=== PATIENT | male | born 1935 | race Caucasian/White ===

== ENCOUNTER 2017-01-09 10:48 | Emergency (ER) | payer MEDICARE, OTHER ==
[~2017-01-09] VITALS: Ht 175.3 cm; Wt 78.2 kg
[~2017-01-09 10:48] MED LIST: ASPI-611 PO; METO25TA41 PO; TAMS0.4C46 PO; UBID10CA9 PO
[2017-01-09 10:50] VITALS: Ht 175.3 cm; Wt 78.2 kg
--- OUTSIDE RECORDS SUMMARY | 2017-01-09 10:53 | XMS REPORT | Referral Summary ---
Author Author [facility] Organization [facility] Address Unknown Phone Unavailable Care Team Providers Care Supervisor Network Control Operators Name Role Phone Simon Fritz Primary Care Physician [phone] Encounter VC Date(s): 05/26/16 - 05/26/16 [facility] [address] [place] [address] MISAEL Velasquez [id number] Discharge Diagnosis: Changing skin lesion Discharge Disposition: 01-Home or Self Care Attending Physician: Marcel Bell MD Admitting Physician: Marcel Bell MD Vital Signs Most recent to 1 oldest [Reference Range]: Temperature Tympanic 36.2 degC [36.6-38.1 degC] *LOW* (05/26/16 1:56 PM) Peripheral Pulse 80 bpm Rate [60-100 bpm] (05/26/16 1:56 PM) Blood Pressure 116/68 mmHg [90-140/60-90 mmHg] (05/26/16 1:56 PM) Problem List Condition Effective Dates Status Health Status Informant Atypical chest 2004 Active pain(Confirmed) Benign essential Active hypertension(Confirm ed) BPH (benign Active prostatic hypertrophy) - w/o obstruction(Confirme d) CAD (coronary artery Active disease)(Confirmed) Change in bowel 2003 Active habits(Confirmed) Chicken Active pox(Confirmed) Chronic ischemic Active heart disease(Confirmed) CVA (cerebral 10/08/10 - 08/19/14 Resolved vascular accident)(Confirmed) Disorder of bone and Active cartilage, unspecified(Confirme d) Disturbance of skin Active sensation(Confirmed) Enthesopathy of Active ankle and tarsus, unspecified(Confirme d) Fibromyalgia(Confirm < 08/19/14 Resolved ed) Generalized 2013 Active abdominal pain(Confirmed) Generalized Active osteoarthrosis, unspecified site(Confirmed) Hearing Active loss(Confirmed) Hernia, inguinal, 2006 Active right(Confirmed) Dyslipidemia(Confirm Active ed) Hyperlipidemia(Confi Active rmed) OA (osteoarthritis) Active - lower leg(Confirmed) Pneumonia(Confirmed) 1950 Active Pure Active hypercholesterolemia (Confirmed) Renal Active adenoma(Confirmed) Hx of heart artery Active stent(Confirmed) Allergies, Adverse Reactions, Alerts No Known Allergies Medications Aspir 81 81 mg, Oral, BID, 0 Refill(s) Start Date: 10/11/14 Status: Ordered Co Q-10 100 mg oral capsule 1 caps, Oral, Daily, 0 Refill(s) Start Date: 10/11/14 Status: Ordered Flomax 0.4 mg oral capsule 1 caps, Oral, Daily, # 30 caps, 0 Refill(s) Start Date: 10/11/14 Status: Ordered Metoprolol Tartrate 25 mg oral tablet See Instructions, TAKE ONE TABLET BY MOUTH ONCE DAILY, # 90 tabs, eRx: [id number], TAKE ONE TABLET BY MOUTH ONCE DAILY Start Date: 04/13/16 Status: Ordered Nitrostat 0.4 mg sublingual tablet 1 tabs, SubLingual, q5min, as needed for chest pain, # 100 tabs, 0 Refill(s), Pharmacy: [id number], 1 tabs SubLingual q5min,PRN:as needed for chest pain Start Date: 08/05/14 Status: Ordered nortriptyline 10 mg oral capsule 10 mg 1 caps, Oral, Daily, 0 Refill(s) Start Date: 05/18/16 Status: Ordered pravastatin 40 mg oral tablet 40 mg 1 tabs, Oral, Every other day, # 90 tabs, 3 Refill(s), Pharmacy: [id number], 1 tabs Oral Daily Start Date: 08/08/15 Status: Ordered Results No data available for this section Immunizations Vaccine Date Refusal Reason influenza virus vaccine, inactivated 08/01/15 influenza virus vaccine, inactivated 08/12/14 influenza virus vaccine, live 08/08/13 influenza virus vaccine, live 08/16/12 pneumococcal 13-valent conjugate vaccine 11/18/15 pneumococcal 23-polyvalent vaccine 10/24/02 tetanus-diphth toxoids (Td) adult/adol 01/27/06 tetanus-diphth toxoids (Td) adult/adol 05/11/96 zoster vaccine live 08/04/07 Procedures Procedure Date Related Diagnosis Body Site Colonoscopy - no need to repeat unless 2013 symptoms warrant Angioplasty - stent at circumflex marginal 2009 artery Repair of inguinal hernia - R 2005 Colonoscopy - normal; repeat 10 years 2003 Partial nephrectomy - R 2003 Angioplasty - no stent (PDA) 10/2000 Angioplasty - stent at LAD 1999 Cardiac catheterization - patent stent 1999 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 It begins in the basal cells, which are at the bottom of the outer skin layer (epidermis). CAUSES Sun exposure is the most common cause of basal cell carcinoma. Basal cell carcinoma occurs most often on parts of the body that are frequently exposed to the sun, including the: Scalp. Ears. Neck. Face. Arms. Backs of the hands. Legs. However, basal cell carcinoma can occur anywhere on the body. Rarely, tumors develop on areas not exposed to the sun. Other causes of basal cell carcinoma can include: Exposure to arsenic. Exposure to radiation. Certain genetic syndromes, such as xeroderma pigmentosum. RISK FACTORS People at highest risk for basal cell carcinoma include those with: Fair skin. Blonde or red hair. Blue, green, or dumont eyes. Childhood freckling. Factors that increase your risk for basal cell carcinoma include: Sun exposure over long periods of time. Childhood sun exposure appears to be a more significant factor than sun exposure as an adult. Repeated sunburns. Use of tanning beds. Having a weakened immune system. SYMPTOMS Five signs of basal cell carcinoma are: An open sore that bleeds, oozes, or crusts. The sore may remain open for 3 or more weeks. This can be an early sign of basal cell carcinoma. Basal cell carcinoma can mimic a pimple that will not heal. A reddish or irritated area which may crust, itch, or cause discomfort. This may occur on areas expose d to the sun. These patches might be easier felt than seen. A shiny, pearly, or translucent bump that is pink, red, or white. The bump may also be rodgers, black, or brown, especially in dark haired people. These bumps can be confused with moles. A pink growth with a slightly elevated, rolled border, and a crusted indentation in the center. As the growth slowly enlarges, tiny blood vessels may develop on the surface. A scar-like white, yellow, or waxy area that looks like shiny, stretched skin. It often has irregular borders. This may be a sign of more aggressive basal cell carcinoma. DIAGNOSIS Your caregiver may be able to tell what is wrong by doing a physical exam. Often , a tissue sample (biopsy) is also taken. The tissue is examined under a microscope. TREATMENT The treatment for basal cell carcinoma depends on the type, size, location, and number of tumors. Possible treatments include: Mohs surgery. This is a procedure done by a skin doctor (community service aide or Mohs surgeon) in his or her office. The cancerous cells are removed layer by layer. This treatment has a high cure rate. Surgical removal of the tumor. Freezing the tumor with liquid nitrogen (cryosurgery). Plastic surgery to remove the tumor, in the case of large tumors. Radiation. This may be used for tumors on the face. Photodynamic therapy. A chemical cream is applied to the skin and light exposure is used to activate the chemical. Chemical treatments, such as imiquimod cream and interferon injections. This may be used to remove superficial tumors with minimal scarring. Electrodesiccation and curettage. This involves alternately scraping and burning the tumor, using an electric current to control bleeding. Basal cell carcinoma can almost always be cured. It rarely spreads to other areas of the body (metastasizes). Basal cell carcinoma may come back at the same location (recur), but it can be treated again if this occurs. PREVENTION Avoid the sun between 10:00 a.m. and 4:00 pm when it is the strongest. Use a sunscreen or sunblock with a sun protection factor of 30 or greater. Apply sunscreen at least 30 minutes before exposure to the sun. Reapply sunscreen every 2 to 4 hours while you are outside, after swimming, and after excessive sweating. Always wear protective hats, clothing, and sunglasses with ultraviolet protection. Avoid tanning beds. HOME CARE INSTRUCTIONS Avoid unprotected sun exposure. Follow your caregiver's instructions for self-exams. Look for new spots or changes in your skin. Keep all follow-up appointments as directed by your caregiver. SEEK MEDICAL CARE IF: You notice any new spots or changes in your skin. You have had a basal cell carcinoma tumor removed and you notice a new growth in the same location. This information is not intended to replace advice given to you by your health care provider. Make sure you discuss any questions you have with your health care provider. Document Released: 04/15/2004 Document Revised: 04/10/2013 Document Reviewed: [facility] Information 2016 [employer] [facility]. No follow up information was provided. Extracted from: Title: Office Visit Note Author: Marcel Bell MD Date: 05/26/16 Assessment/Plan 1.Changing skin lesion Ordered: Office Visit Level 3 New [id number] Plan: Excisional biopsy ofUlceratedskinlesion under right ear lobe 0.8 cm in diameter I did review the patient's chart including office note performed by his PCP from May 18, 2016.I informed the patient that it was my clinical intuition that this ulcerated lesionjust beneath the right ear was likely the result of underlying skin malignancy.It was therefore my recommendation that we should proceed with an excisional biopsy.Patient understood and wished to proceed. The area of concern was prepped and draped in sterile fashion. One percent lidocaine with epinephrine was injected circumferentially around the skin lesion. The lesion was excised in a standard elliptical fashion. The elliptical incision was 1.0 cm in width and 1.8 cm in length. Hemostasis obtained withRECTAL cautery. The incision was closed in layers with 4-0 Vicryl subcuticular stitches and 4-0 Prolene for skin edges. The patient was given post excision instruction and told to return to the clinic May 15, or sooner if any concerns arise.
--- OUTSIDE RECORDS SUMMARY | 2017-01-09 10:53 | XMS REPORT | Continuity of Care Document ---
Author Author Danny MG, Etienne GLASGOW [facility] Ambulatory Address [address] [place] [address] Phone Care Team Providers Care Polymer Scientist Name Role Phone Etienne Delgado PP Unavailable Payers Payer name Insurance type Covered republican ID Authorization(s) Unknown Problems Condition Effective Dates (start - stop) Clinical Status Headache - *Acute Ptosis, right eyelid - *Acute Chronic ischemic heart disease, unspecified - *Chronic Hypercholesterolemia - *Chronic Hypertension, Benign - *Chronic Myalgia and myositis, unspecified - *Chronic Ganglion cyst of wrist - *Chronic Headache - *Acute Chronic ischemic heart disease, unspecified - *Chronic Hypercholesterolemia - *Chronic BPH - *Chronic Abdominal Pain - *Acute Chronic ischemic heart disease, unspecified - *Chronic Abdominal pain, other specified site - *Chronic 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 Chronic ischemic heart disease, unspecified - *Chronic 3Rd nerve palsy, partial - *Acute Headache - *Acute Other bursal cyst, right wrist - *Chronic Primary osteoarthritis of right wrist - *Chronic Abdominal Pain - *Chronic Chronic ischemic heart disease, unspecified - *Chronic BPH - *Chronic Abdominal Pain - *Chronic BPH - *Chronic Chronic ischemic heart disease, unspecified - *Chronic Hypercholesterolemia - *Chronic Hypertension, Unspecified - *Chronic Impacted cerumen - *Acute Third or oculomotor nerve palsy, partial - *Acute Rhus dermatitis - *Chronic Chest pain - *Chronic CAD (coronary artery disease) - *Chronic BPH with urinary obstruction - *Chronic Urinary obstruction, not elsewhere classified - *Chronic Abdominal pain, generalized - *Chronic Abdominal Pain - Episodic Chronic ischemic heart disease, unspecified - *Chronic Hypercholesterolemia - *Chronic Headache - Episodic BENIGN LOCALIZED HYPERPLASIA OF PROSTATE WITH URINARY OBSTRUCTION - *Controlled Abdominal pain, left lower quadrant - Intermittent VARICELLA UNCOMPLICATED - PURE HYPERCHOLESTEROLEM - MIXED HYPERLIPIDEMIA - HYPERLIPIDEMIA NEC/NOS - SENSORNEUR HEAR LOSS NOS - SENSONRL HEAR LOSS,BILAT - BENIGN HYPERTENSION - COR ATH UNSP VSL NTV/GFT - CHR ISCHEMIC HRT DIS NOS - CRBL ART OCL NOS W INFRC - BPH W/O URINARY OBS/LUTS - GENERAL OSTEOARTHROSIS - OSTEOARTHROS NOS-L/LEG - ANKLE ENTHESOPATHY NOS - MYALGIA AND MYOSITIS NOS - BONE & CARTILAGE DIS NOS - SKIN SENSATION DISTURB - Hypertension, Unspecified - *Chronic Other and unspecified hyperlipidemia - *Chronic Second degree burn - *Acute HYPERTROPHY (BENIGN) OF PROSTATE WITH URINARY OBSTRUCTION - * Fair Control Family History Family Member Diagnosis Age At Onset Status Father (Unknown) CVA (Stroke) Yes Mother (Unknown) Myocardial infarction Yes 3 sisters (Unknown) Alive and well (Unknown) Father (Unknown) Myocardial infarction Yes Social History Social History Element Description Quantity Unknown Allergies, Adverse Reactions, Alerts Substance Reaction Severity Status Unknown Medications Medication Instructions Dosage Effective Dates (start - stop) Status aspirin 81 mg tablet,delayed release take 1 tablet (81MG) by oral route every day 81 MG - Active Flomax 0.4 mg capsule take 1 capsule (0.4MG) by oral route every day 0.4 MG - Active COQ-10 (unknown strength) Take daily - Active metoprolol tartrate 25 mg tablet one po daily - Active simvastatin 20 mg tablet take 1 tablet (20MG) by oral route every day in the evening 20 MG - Active nitroglycerin 0.4 mg sublingual tablet ONE TABLET UNDER TONGUE NEEDED FOR CHEST PAIN. MAY REPEAT UP TO TWO MORE TIMES, 5 MINUTES APART EACH TIME. - Active ibuprofen 200 mg tablet take 2 Tablet (400MG) by oral route 5-6 times every day as needed with food - Active [place] 7.5 mg-325 mg tablet take 1 tablet by oral route every 4 hours as needed for pain 0 - Active Immunizations Vaccine Date Status Comments Flu (split) (3 yrs or older) completed Flu (split) (3 yrs or older) completed Td (adult) completed - Completed reason: source unspecified Td (adult) completed - Completed reason: source unspecified pneumo (2 yrs or older) (PPV23) completed - Completed reason: source unspecified Zoster completed - Completed reason: source unspecified Results Test Name Date and Time Measure Units Reference Range Abnormal Flag Comments Panel Description: CBC WBC 16:51:00 6.4 K/uL 4.8-10.8 RBC 16:51:00 4.86 M/uL 4.60-6.20 HGB 16:51:00 15.1 g/dl 14.0-18.0 HCT 16:51:00 43.2 % 42.0-52.0 MCV 16:51:00 88.9 fL 82.0-99.0 MCH 16:51:00 31.1 pg 27.0-32.0 MCHC 16:51:00 35.0 g/dL 32.0-36.0 RDW 16:51:00 12.7 % 11.5-14.5 MPV 16:51:00 10.5 fL 8.8-14.8 Platelet Count 16:51:00 169 K/uL 150-400 Immature Granulocytes 16:51:00 0.5 % 0.0-1.0 Absolute Neutrophils 16:51:00 3.97 THOUS 1.90-7.00 Absolute Lymphocytes 16:51:00 1.60 THOUS 0.80-3.30 Absolute Monocytes 16:51:00 0.59 THOUS 0.30-1.00 Absolute Eosinophils 16:51:00 0.18 THOUS 0.00-0.50 Absolute Basophils 16:51:00 0.03 THOUS 0.00-0.20 Neutrophils 16:51:00 62 % 51-75 Lymphocytes 16:51:00 25 % 20-46 Monocytes 16:51:00 9 % 4-11 Eosinophils 16:51:00 3 % 0-4 Basophils 16:51:00 1 % 0-2 Testing performed at [facility] [address] [place] [address] [employer] Secretary Missael Henderson MD Panel Description: Sedrate Sedimentation Rate 16:51:00 2 mm/hr 0-15 Testing performed at [facility] [address] [place] [address] [employer] Secretary Missael Henderson MD Panel Description: C-Reactive [id number] C-Reactive Protein 16:51:00 <0.5 mg/dL <0.5 Testing performed at [facility] [address] [place] [address] [employer] Secretary Missael Henderson MD Vital Signs Date / Time: Height Weight Pulse Rate Blood Pressure Temperature /15:58:00 69.00 in 171.00 lbs 48 /min 124/70 mm[Hg] 98.3 F Procedures Procedure Date Unknown Encounters Encounter Location Date Patient Visit [facility] Patient [facility] Patient [facility] Patient Visit [facility] Patient Visit [facility] Patient Visit [facility] Patient Visit [facility] Patient Visit [facility] Patient Visit [facility] Patient Visit [facility] Patient Visit [facility] Advance Directives Directive Effective Date Unknown
--- OUTSIDE RECORDS SUMMARY | 2017-01-09 10:53 | XMS REPORT | Continuity of Care Document ---
Author Author Emilia Clemente [facility] Ambulatory Address Unknown Phone Unavailable Care Team Providers Care Grinder Operator Tool Name Role Phone Liz Delgadoargenis AGUILERA Unavailable Payers Payer name Insurance type Covered alliance party ID Authorization(s) Unknown Problems Condition Effective Dates (start - stop) Clinical Status Chronic ischemic heart disease, unspecified - *Controlled Chest Pain, Unspecified - *Chronic Hypertension, Unspecified - *Chronic Hypercholesterolemia - *Chronic Cranial nerve III palsy, partial - *Routine Ocular pain - *Fair Control Chronic ischemic heart disease, unspecified - *Chronic Hypercholesterolemia - *Chronic Hypertension, Benign - *Chronic Myalgia and myositis, unspecified - *Chronic Ganglion cyst of wrist - *Chronic Headache - *Acute Ptosis, right eyelid - *Acute Hypercholesterolemia - *Chronic BPH - *Chronic Abdominal [...] DIS NOS - SKIN SENSATION DISTURB - Headache - *Acute Chronic ischemic heart disease, unspecified - *Chronic Hypertension, Unspecified - *Chronic Other and unspecified [...] Dosage Effective Dates (start - stop) Status oxcarbazepine 300 mg tablet take 1 tablet (300MG) by oral route 2 times every day 300 MG - Active aspirin 81 mg tablet,delayed release take 1 tablet (81MG) by oral route every day 81 MG - Active Flomax 0.4 mg capsule take 1 capsule (0.4MG) by oral route every day 0.4 MG - Active COQ-10 (unknown strength) Take daily - Active simvastatin 20 mg tablet take 1 tablet (20MG) by oral route every day in the evening 20 MG - Active nitroglycerin 0.4 mg sublingual tablet ONE TABLET UNDER TONGUE NEEDED FOR CHEST PAIN. MAY REPEAT UP TO TWO MORE TIMES, 5 MINUTES APART EACH TIME. - Active metoprolol tartrate 25 mg tablet one po daily - Active Immunizations Vaccine Date Status Comments Flu (split) (3 yrs or older) completed Flu (split) (3 yrs or older) completed Td (adult) completed - Completed reason: source unspecified Td (adult) completed - Completed reason: source unspecified Zoster completed - Completed reason: source unspecified pneumo (2 yrs or older) (PPV23) completed - Completed reason: source unspecified Results Test Name Date and Time Measure Units Reference Range Abnormal Flag Comments Unknown Vital Signs Date / Time: Height Weight Pulse Rate Blood Pressure Temperature /:17:00 69.00 in 171.00 lbs 52 /min 122/80 mm[Hg] /:19:00 114/80 mm[Hg] Procedures Procedure Date Unknown Encounters Encounter Location Date Patient Visit [facility] Patient Visit [facility] [place] Patient Visit [facility] Patient Visit [facility] Patient Visit [facility] Patient Visit [facility] Patient [facility] Patient [facility] Patient Visit [facility] Patient Visit [...]
--- OUTSIDE RECORDS SUMMARY | 2017-01-09 10:53 | XMS REPORT | Referral Summary ---
Author Author [facility] Organization [facility] Address Unknown Phone Unavailable Care Team Providers Care Data Collection Technician Name Role Phone Simon Fritz Primary Care Physician [phone] Encounter Date(s): 11/18/15 - 11/18/15 [facility] [address] [place] [id number] Discharge Diagnosis: CAD (coronary artery disease) Discharge Diagnosis: Benign essential hypertension Discharge Diagnosis: Mild anxiety Discharge Diagnosis: Atypical chest pain Discharge Diagnosis: Dyslipidemia Discharge Diagnosis: Myalgia Discharge Disposition: 01-Home or Self Care Attending Physician: Juan Fritz MD Admitting Physician: Juan Fritz MD Vital Signs Most recent to 1 oldest [Reference Range]: Temperature Tympanic 35.7 degC [36.6-38.1 degC] *LOW* (11/18/15 9:36 AM) Peripheral Pulse 84 bpm Rate [60-100 bpm] (11/18/15 9:36 AM) Blood Pressure 115/62 mmHg [90-140/60-90 mmHg] (11/18/15 9:36 AM) Problem List Condition Effective Dates Status Health [...] d) Fibromyalgia(Confirm < 08/19/14 Resolved ed) Generalized 2012 Active abdominal pain(Confirmed) Generalized Active osteoarthrosis, unspecified site(Confirmed) Hearing Active loss(Confirmed) Hernia, inguinal, 2006 Active right(Confirmed) Dyslipidemia(Confirm Active ed) Hyperlipidemia(Confi Active rmed) OA (osteoarthritis) Active - lower leg(Confirmed) Pneumonia(Confirmed) 1950 Active Pure Active hypercholesterolemia (Confirmed) Renal Active adenoma(Confirmed) Hx of heart artery Active stent(Confirmed) Allergies, Adverse Reactions, Alerts No Known Allergies Medications Aspir 81 81 mg, Oral, Daily, 0 Refill(s) Start Date: 10/11/14 Status: Ordered Co Q-10 100 mg oral capsule 1 caps, Oral, Daily, 0 Refill(s) Start Date: 10/11/14 Status: Ordered Flomax 0.4 mg oral capsule 1 caps, Oral, Daily, # 30 caps, 0 Refill(s) Start Date: 10/11/14 Status: Ordered Metoprolol Tartrate 25 mg oral tablet See Instructions, TAKE ONE TABLET BY MOUTH ONCE DAILY, # 90 tabs, 3 Refill(s), [facility]Rx: 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 We talked about plaque development on the arteries, the concept of endothelial dysfunction, and the function of statin medications. We talked about statin complications including myalgias. We will check a CPK level and recheck a lipid panel-to be done fasting another day sometime soon. We discussed hypertension and at this point it seems to be adequately controlled. We discussed his chest discomfort which is quite atypical and does not seem to be cardiac in nature. Most likely there is a musculoskeletal component. We talked about his headaches which at this point seem to be mild with no clues to suggest intracranial tumor, bleed, etc. I suggested Tylenol and observation with follow-up if they're progressing. We will update Prevnar vaccine today. We discussed anxiety and I do think he has a component of anxiety. After discussion we decided to observe rather than start on medication. Follow-up 6 months if all goes well or sooner if needed.
--- OUTSIDE RECORDS SUMMARY | 2017-01-09 10:53 | XMS REPORT | Referral Summary ---
Author Author [facility] Organization [facility] Address Unknown Phone Unavailable Care Team Providers Care Vegetable Thinner Name Role Phone Macie Delgado Primary Care Physician [phone] Encounter Date(s): 07/30/15 - 07/30/15 [facility] [address] [place] [address] [place] [id number] Discharge Diagnosis: Statin intolerance Discharge Diagnosis: Leg pain Discharge Diagnosis: History of percutaneous coronary intervention Discharge Diagnosis: Coronary heart disease Discharge Disposition: 01-Home or Self Care Attending Physician: Santiago Bernal MD Admitting Physician: Santiago Bernal MD Referring Physician: Etienne Delgado MD Vital Signs Most recent to 1 oldest [Reference Range]: Peripheral Pulse 56 bpm Rate [60-100 bpm] *LOW* (07/30/15 2:24 PM) Blood Pressure 104/74 mmHg [90-140/60-90 mmHg] (07/30/15 2:24 PM) Problem List Condition Effective Dates Status Health Status Informant Atypical chest 2004 Active pain(Confirmed) Benign essential Active hypertension(Confirm ed) BPH (benign Active prostatic hypertrophy) - w/o obstruction(Confirme d) CAD (coronary artery Active disease)(Confirmed) Change in bowel 2003 Active habits(Confirmed) Chicken Active pox(Confirmed) Chronic ischemic Active heart disease(Confirmed) CVA (cerebral 10/08/10 Active vascular accident)(Confirmed) Disorder of bone and Active cartilage, unspecified(Confirme d) Disturbance of skin Active sensation(Confirmed) Dyslipidemia(Confirm Active ed) Enthesopathy of Active ankle and tarsus, unspecified(Confirme d) Fibromyalgia(Confirm Active ed) Generalized 2013 Active abdominal pain(Confirmed) Generalized Active osteoarthrosis, unspecified site(Confirmed) Hearing Active loss(Confirmed) Hernia, inguinal, 2006 Active right(Confirmed) Hyperlipidemia(Confi Active rmed) OA (osteoarthritis) Active - lower leg(Confirmed) Pneumonia(Confirmed) 1949 Active Pure Active hypercholesterolemia (Confirmed) Renal Active [...] DAILY, # 90 tabs, 3 Refill(s), [facility]Rx: [id number], TAKE ONE TABLET BY MOUTH ONCE DAILY Start Date: 01/23/15 Status: Ordered Nitrostat 0.4 mg sublingual tablet 1 tabs, SubLingual, q5min, as needed for chest pain, # 100 tabs, 0 Refill(s), Pharmacy: [id number], 1 tabs SubLingual q5min,PRN:as needed for chest pain Start Date: 08/05/14 Status: Ordered pravastatin 40 mg oral tablet 40 mg 1 tabs, Oral, Daily, # 90 tabs, 3 Refill(s), Pharmacy: [id number], 1 tabs Oral Daily Start Date: 08/08/15 Status: Ordered Results No data available for this section Immunizations Vaccine Date Refusal Reason influenza virus vaccine, inactivated 08/01/15 influenza virus vaccine, inactivated 08/12/14 influenza virus vaccine, live 08/08/13 influenza virus vaccine, live 08/16/12 pneumococcal 23-polyvalent vaccine 10/24/02 tetanus-diphth toxoids (Td) adult/adol 01/27/06 tetanus-diphth toxoids (Td) adult/adol 05/11/96 zoster vaccine live 08/04/07 Procedures Procedure Date Related Diagnosis Body Site Colonoscopy - no need to repeat unless 2013 symptoms warrant Angioplasty - stent at circumflex marginal 2009 artery Repair of inguinal hernia - R 2005 Colonoscopy - normal; repeat 10 years 2003 Partial nephrectomy - R 2004 Angioplasty - no stent (PDA) 10/2000 Angioplasty - stent at LAD 1999 Cardiac catheterization - patent stent 2000 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 We reassured him, however, that the medicine doesn't seem to be resulting in muscle injury. Wediscussedalternative medicationsand we discussed taking the medicineon an alternate day basis. Heconfessed that he has been taking the medicine 4 days a week and has been actually getting along very well. We discussedoptions includingchanging to pravastatinor atorvastatinor Crestor. We discussed current guidelines. He reports that he is going to check his insurance plans and make a final decision about his preference. Time of visit about 25 minutes.
--- OUTSIDE RECORDS SUMMARY | 2017-01-09 10:54 | XMS REPORT | Summary of Care ---
Author Author Kosta Armstrong M.D. Unknown Address [address] [place] [address] [place] [address] Phone Unavailable Care Team Providers Care Clinical Lab Assistant Name Role Phone Juan Fritz PP Unavailable Unavailable Unavailable Functional Status Functional Status Health Issues* Name Dates Details Functional status health issues are not documented Status: Cognitive Status Health Issues* Name Dates Details Cognitive status health issues are not documented Status: Problems Name Dates Details Erectile dysfunction (607.84, N52.9) Status: Active Testalgia (608.9, N50.8) Status: Active Abdominal pain of multiple sites (789.09, R10.9) Status: Active Rising PSA level (790.93, R97.2) Status: Active Enlarged prostate with lower urinary tract symptoms (LUTS) (600.01, N40.1) Status: Active Medications Name Dates Details Tamsulosin HCl 0.4 MG CP24 ActiveCo Q10 CAPS * Refills: 0 ActiveAspirin EC 81 MG Oral Tablet Delayed Release * Refills: 0 ActiveSimvastatin 20 MG Oral Tablet * Refills: 0 ActiveMetoprolol Tartrate 25 MG Oral Tablet * Refills: 0 Active Allergies and Adverse Reactions Name Dates Details No Known Allergies Status: Active Past Medical History Name Dates Details History of Benign prostatic hypertrophy with urinary obstruction (600.01, N40.1 ) Status: Resolved History of diabetes mellitus (V12.29, Z86.39) Status: Resolved History of hypertension (V12.59, Z86.79) Status: Resolved History of myocardial infarction (412, I25.2) Status: Resolved Procedures Procedure Dates Details History of Previous Stent Placement History of Hernia Repair History of Nephrectomy History of Colonoscopy PSA ( PROSTATE SPECIFIC ANTIGEN) 3100 Ordered:12-Nov-2015 Immunization Name Dates Details Immunizations not documented Family History Mother* Name Dates Details Family history of cardiac disorder (V17.49, Z82.49) Status: Active Father* Name Dates Details Family history of cardiac disorder (V17.49, Z82.49) Status: Active Social History Name Dates Details Smoking Status* Never smoker Vital Signs Date Test Result Details 12-Nov-2015 15:37 BP Systolic 138 mm[Hg] Status: BP Diastolic 75 mm[Hg] Status: Heart Rate 64 /min Status: Height 68 in Status: Weight 165 lb Status: Body Mass Index Calculated 25.09 kg/m2 Status: Body Surface Area Calculated 1.88 m2 Status: Results Date Description Value Details Results not documented Plan of Care Planned Observations* Name Dates Details Planned Goals not documented Goal Planned Encounters* Appointment; Provider: Kosta Armstrong On 10-Nov-2016 14:15 Instructions * Instructions not documented Encounters Appointment; Kosta Armstrong Encounter Diagnosis: Problem not documented On 12-Nov-2015 15:15
--- OUTSIDE RECORDS SUMMARY | 2017-01-09 10:54 | XMS REPORT | Summary of Care ---
Author Author Kosta Armstrong M.D. Unknown Address [address] [place] [address] [place] [address] Phone Unavailable Care Team Providers Care Board Operator Name Role Phone Juan Fritz PP Unavailable [...]
--- OUTSIDE RECORDS SUMMARY | 2017-01-09 10:54 | XMS REPORT | Referral Summary ---
Author Author [facility] Organization [facility] Address Unknown Phone Unavailable Care Team Providers Care Lithograph Press Operator Tinware Name Role Phone Simon Fritz Primary Care Physician [phone] Encounter VC Date(s): 08/01/15 - 08/01/15 [facility] [address] [place] [id number] Discharge Disposition: 01-Home or Self Care Attending Physician: Juan Fritz MD Admitting Physician: Etienne Delgado MD Vital Signs No data available for this section Problem List Condition Effective Dates Status Health [...] MOUTH ONCE DAILY, # 90 tabs, eRx: [facility], TAKE ONE TABLET BY MOUTH ONCE DAILY Start Date: 01/19/16 Status: Ordered Nitrostat 0.4 mg sublingual tablet 1 tabs, SubLingual, q5min, as needed for chest pain, # 100 tabs, 0 Refill(s), Pharmacy: [facility], 1 tabs SubLingual q5min,PRN:as needed for chest pain Start Date: 08/05/14 Status: Ordered pravastatin 40 mg oral tablet 40 mg 1 tabs, Oral, Every other day, # 90 tabs, 3 Refill(s), Pharmacy: [facility], 1 tabs Oral [...] 2005 Colonoscopy - normal; repeat 10 years 2004 Partial nephrectomy - R 2004 Angioplasty - [...] Smoking Status Never smoker Assessment and Plan No data available for this section
--- OUTSIDE RECORDS SUMMARY | 2017-01-09 10:54 | XMS REPORT | Referral Summary ---
Author Author [facility] Organization [facility] Address Unknown Phone Unavailable Care Team Providers Care Photographic Restorer Name Role Phone Simon Fritz Primary Care Physician [phone] Encounter VC Date(s): 10/21/16 - 10/21/16 [facility] [address] [place] [address] Discharge Diagnosis: Acute URI Discharge Disposition: 01-Home or Self Care Attending Physician: Oliver Carbajal PA-C Admitting Physician: Oliver Carbajal PA-C Vital Signs Most recent to 1 oldest [Reference Range]: Temperature Tympanic 36.3 degC [36.6-38.1 degC] *LOW* (10/21/16 1:14 PM) Peripheral Pulse 83 bpm Rate [60-100 bpm] (10/21/16 1:14 PM) Blood Pressure 122/72 mmHg [90-140/60-90 mmHg] (10/21/16 1:14 PM) SpO2 96 % (10/21/16 1:14 PM) Problem List Condition Effective Dates Status [...] ONE TABLET BY MOUTH ONCE DAILY, # 30 tabs, 3 Refill(s), eRx: [facility], TAKE ONE TABLET BY MOUTH ONCE DAILY Start Date: 08/16/16 Status: Ordered Nitrostat 0.4 mg sublingual tablet See Instructions, DISSOLVE ONE TABLET UNDER THE TONGUE EVERY 5 MINUTES NEEDED FOR CHEST PAIN. DO NOT EXCEED A TOTAL OF 3 DOSES IN 15 MINUTES, # 100 unknown unit, eRx: [facility], DISSOLVE ONE TABLET UNDER THE TONGUE EVERY 5 MINUTES ... Start Date: 08/20/16 Status: Ordered nortriptyline 10 mg oral capsule 10 mg 1 caps, Oral, Daily, 0 Refill(s) Start Date: 05/18/16 Status: Ordered pravastatin 40 mg oral tablet 40 mg 1 tabs, Oral, Daily, # 90 tabs, 3 Refill(s), Pharmacy: [facility], 1 tabs Oral Daily Start Date: 08/08/15 Status: Ordered Tessalon Perles 100 mg oral capsule 100 mg 1 caps, Oral, TID, as needed for cough, X 10 days, # 30 caps, 0 Refill(s) , Pharmacy: [facility], 1 caps Oral TID,x10 days,PRN:as needed for cough Start Date: 10/21/16 Stop Date: 10/31/16 Status: Ordered Results No data available for this section Immunizations Given and Recorded Vaccine Date Status Refusal Reason influenza virus vaccine, inactivated 08/04/16 Given influenza virus vaccine, inactivated 08/01/15 Given influenza virus vaccine, inactivated 08/12/14 Recorded influenza virus vaccine, live 08/08/13 Given influenza virus vaccine, live 08/16/12 Given pneumococcal 13-valent conjugate vaccine 11/18/15 Given pneumococcal 23-polyvalent vaccine 10/24/02 Recorded tetanus-diphth toxoids (Td) adult/adol 01/27/06 Given tetanus-diphth toxoids (Td) adult/adol 05/11/96 Given zoster vaccine live 08/04/07 Given Procedures Procedure Date Related Diagnosis Body Site Colonoscopy 09/13/13 Colonoscopy - no need to repeat unless 2013 symptoms warrant Angioplasty - stent at circumflex marginal 2008 artery Repair of inguinal hernia - R 2005 Colonoscopy - normal; repeat 10 years 2003 Partial nephrectomy - R 2003 Angioplasty - no stent (PDA) 10/2000 Angioplasty - stent at LAD 1999 Cardiac catheterization - patent stent 1999 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 Recommend supportive care. Rest. Practice good hand hygiene. Increase fluids. Patient was given a handout of [id number] medications that were recommended for the patient;recommended Mucinex DM. Tylenolas needed for fever or pain. FU with PCP if not improving, worsening symptoms, feveror as needed. Questions were answered. Patient verbalized understanding. Patient left in stable condition.
--- OUTSIDE RECORDS SUMMARY | 2017-01-09 10:54 | XMS REPORT | Referral Summary ---
Author Author [facility] Organization [facility] Address Unknown Phone Unavailable Care Team Providers Care Principal Gifts Officer Name Role Phone Macie Delgado Primary Care Physician [phone] Encounter Date(s): 07/30/15 - 07/30/15 [facility] [address] [place] [address] [place] [id number] Discharge Diagnosis: Statin intolerance Discharge [...] DAILY, # 90 tabs, 3 Refill(s), eRx: [facility], TAKE ONE TABLET BY MOUTH ONCE DAILY Start Date: 01/23/15 Status: Ordered Nitrostat 0.4 mg sublingual tablet 1 tabs, SubLingual, q5min, as needed for chest pain, # 100 tabs, 0 Refill(s), Pharmacy: [facility], 1 tabs SubLingual q5min,PRN:as needed for chest pain Start Date: 08/05/14 Status: Ordered pravastatin 40 mg oral tablet 40 mg 1 tabs, Oral, Daily, # 90 tabs, 3 Refill(s), Pharmacy: [facility], 1 tabs Oral Daily [...]
--- OUTSIDE RECORDS SUMMARY | 2017-01-09 10:54 | XMS REPORT | Summary of Care ---
Author Author Kosta Armstrong M.D. [facility] Unknown Address [address] [place] [address] [place] [address] Phone Unavailable Care Team Providers Care Parachute Mender Name Role Phone Juan Fritz PP Unavailable [...] Repair History of Nephrectomy History of Colonoscopy Procedures not documented Immunization Name Dates Details Immunizations not documented [...] m2 Status: Results Date Description Value Details 13-Nov-2015 08:50 PSA ( PROSTATE SPECIFIC ANTIGEN) 3100 PROSTATE SPECIFIC ANTIGEN 1.220 ng/mL (Better) Range: 0.000-4.000 Plan of Care Planned Observations* Name Dates Details Planned Goals not documented Goal Planned Encounters* Appointment; Provider: Kosta Armstrong On 10-Nov-2016 14:15 Instructions * Instructions not documented Encounters Appointment; Kosta Armstrong Encounter Diagnosis: Problem not documented On 12-Nov-2015 15:15
--- OUTSIDE RECORDS SUMMARY | 2017-01-09 10:54 | XMS REPORT | Referral Summary ---
Author Organization Unknown Address Unknown Phone Unavailable Care Team Providers Care Tele Tech Name Role Phone DelgadoMacie Primary Care Physician [phone] Encounter [facility] [id number] Date(s): 01/01/15 - 01/01/15 [facility] [place] [address] [place], [place] [address] Discharge Disposition: Home or Self Care Attending Physician: Maricruz Carlisle MD Admitting Physician: Maricruz Carlisle MD Vital Signs No data available for [...] tarsus, unspecified(Confirme d) Fibromyalgia(Confirm Active ed) Generalized 2012 Active abdominal pain(Confirmed) Generalized [...] 0 Refill(s) Start Date: 10/11/14 Status: Ordered metoprolol tartrate 25 mg oral tablet 1 tabs, Oral, Daily, # 60 tabs, 0 Refill(s) Start Date: 10/11/14 Status: Ordered Nitrostat 0.4 mg sublingual tablet 1 tabs, SubLingual, q5min, as needed for chest pain, # 100 tabs, 0 Refill(s), Pharmacy: [id number], 1 tabs SubLingual q5min,PRN:as needed for chest pain Start Date: 08/05/14 Status: Ordered simvastatin 20 mg oral tablet 1 tabs, Oral, Bedtime (once a day), # 90 tabs, 3 Refill(s), Pharmacy: [id number], 1 tabs Oral Bedtime (once a day) Start Date: 09/23/14 Status: Ordered Results No data available for this section Immunizations Vaccine Date Refusal Reason influenza virus vaccine, inactivated 08/12/14 influenza virus [...]
--- OUTSIDE RECORDS SUMMARY | 2017-01-09 10:54 | XMS REPORT | Referral Summary ---
Author Author [facility] Organization [facility] Address Unknown Phone Unavailable Care Team Providers Care Cutter Operator Tile Name Role Phone Simon Fritz Primary Care Physician [phone] Encounter Date(s): 02/04/16 - 02/04/16 [facility] [address] [place] [address] MISAEL Velasquez [id number] Discharge Diagnosis: Coronary heart disease Discharge Diagnosis: Essential hypertension Discharge Diagnosis: History of percutaneous coronary intervention Discharge Diagnosis: Hypercholesteremia Discharge Diagnosis: Myalgia Discharge Diagnosis: Paresthesias Discharge Disposition: 01-Home or Self Care Attending Physician: Santiago Bernal MD Admitting Physician: Santiago Bernal MD Referring Physician: Juan Fritz MD Vital Signs Most recent to 1 oldest [Reference Range]: Peripheral Pulse 52 bpm Rate [60-100 bpm] *LOW* (02/04/16 9:57 AM) Blood Pressure 100/64 mmHg [90-140/60-90 mmHg] (02/04/16 9:57 AM) Problem List Condition Effective Dates Status Health Status Informant Atypical chest 2003 Active pain(Confirmed) Benign essential Active hypertension(Confirm ed) [...] MOUTH ONCE DAILY, # 90 tabs, eRx: [facility], TAKE ONE TABLET BY MOUTH ONCE DAILY Start Date: 01/19/16 Status: Ordered Nitrostat 0.4 mg sublingual tablet 1 tabs, SubLingual, q5min, as needed for chest pain, # 100 tabs, 0 Refill(s), Pharmacy: [facility], 1 tabs SubLingual q5min,PRN:as needed for chest pain Start Date: 08/05/14 Status: Ordered pravastatin 40 mg oral tablet 40 mg 1 tabs, Oral, Every other day, # 90 tabs, 3 Refill(s), Pharmacy: [facility], 1 tabs Oral Daily [...] Visit Note Author: Santiago Bernal MD Date: 02/04/16 Assessment/Plan 1.Coronary heart disease 2.History of percutaneous coronary intervention 3.Hypercholesteremia 4.Myalgia 5.Essential hypertension 6.Paresthesias Discussion:I advised him that his heart seems to be doing okayand that his heart is not likely to have any relationship to hisneurologic symptoms. I pointed out that he has had long-standingatypical cardiacsymptoms and it 's not surprising that he might have atypical neurologic symptoms as well. I advised him to continue his same medications. He is feeling somewhat more secureregarding hischolesterol therapyandI encouraged him to try to increase the dose as he can tolerated. He is to see me again in 6 months or any time as necessary. I reassured him that his headache is notrelated to his heart andthat it probably is not likely to be dangerous. He apparently did have a sedimentation rate done which was okay. Lengthyvisit in order to review the patient's multiple concerns. Orders: pravastatin, 40 mg 1 tabs, Oral, Every other day, # 90 tabs, 3 Refill( s), Pharmacy: [facility], 1 tabs Oral Daily
--- OUTSIDE RECORDS SUMMARY | 2017-01-09 10:54 | XMS REPORT | Referral Summary ---
Author Author [facility] Organization [facility] Address Unknown Phone Unavailable Care Team Providers Care Rice Cleaning Machine Tender Name Role Phone Simon Fritz Primary Care Physician [phone] Encounter [facility] Date(s): 06/15/16 - 06/15/16 [facility] [address] [place] [address] MISAEL Velasquez [id number] Discharge Diagnosis: Visit for suture removal Discharge Disposition: 01-Home or Self Care Attending Physician: Marcel Bell MD Admitting Physician: Marcel Bell MD Vital Signs Most recent to 1 oldest [Reference Range]: Temperature Tympanic 37.1 degC [36.6-38.1 degC] (06/15/16 3:38 PM) Problem List Condition Effective Dates Status [...] MOUTH ONCE DAILY, # 90 tabs, eRx: [facility], TAKE ONE TABLET BY MOUTH ONCE DAILY Start Date: 04/13/16 Status: Ordered Nitrostat 0.4 mg sublingual tablet 1 tabs, SubLingual, q5min, as needed for chest pain, # 100 tabs, 0 Refill(s), Pharmacy: [facility], 1 tabs SubLingual q5min,PRN:as needed for chest pain Start Date: 08/05/14 Status: Ordered nortriptyline 10 mg oral capsule 10 mg 1 caps, Oral, Daily, 0 Refill(s) Start Date: 05/18/16 Status: Ordered pravastatin 40 mg oral tablet 40 mg 1 tabs, Oral, Daily, # 90 tabs, 3 Refill(s), Pharmacy: [facility], 1 tabs Oral Daily [...] Extracted from: Title: Ambulatory Patient Education Author: Una Leone PHYSICAL TRAINER Date : 06/15/16 Family Medicine Suture Removal, Care After Refer to this sheet in the next few weeks. These instructions provide you with information on caring for yourself after your procedure. Your health care provider may also give you more specific instructions. Your treatment has been planned according to current medical practices, but problems sometimes occur. Call your health care provider if you have any problems or questions after your procedure. WHAT TO EXPECT AFTER THE PROCEDURE After your stitches (sutures) are removed, it is typical to have the following: Some discomfort and swelling in the wound area. Slight redness in the area. HOME CARE INSTRUCTIONS If you have skin adhesive strips over the wound area, do not take the strips off. They will fall off on their own in a few days. If the strips remain in place after 14 days, you may remove them. Change any bandages (dressings) at least once a day or as directed by your health care provider. If the bandage sticks, soak it off with warm, soapy water. Apply cream or ointment only as directed by your health care provider. If using cream or ointment, wash the area with soap and water 2 times a day to remove all the cream or ointment. Rinse off the soap and pat the area dry with a clean towel. Keep the wound area dry and clean. If the bandage becomes wet or dirty, or if it develops a bad smell, change it as soon as possible. Continue to protect the wound from injury. Use sunscreen when out in the sun. New scars become sunburned easily. SEEK MEDICAL CARE IF: You have increasing redness, swelling, or pain in the wound. You see pus coming from the wound. You have a fever. You notice a bad smell coming from the wound or dressing. Your wound breaks open (edges not staying together). This information is not intended to replace advice given to you by your health care provider. Make sure you discuss any questions you have with your health care provider. Document Released: 07/05/2002 Document Revised: 07/31/2014 Document Reviewed: ExitCare Patient Information 2016 [email or web address]. No follow up information was provided. 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 Focal presence at the margin cannot be entirely excluded. Dr. Bell discussed pathology with the patient indicating that this is the type of cancer that would present as a scab or ulceration if itwere to recur. This is not something that would metastasize to other parts of the body. Recommendation is to watch this areaand returnif there is any indication ofan ulceration that does not healor a new scab formation. The other option was to return in 6 monthsfor skin check. Patient decided to watch this areafor any new signs of recurrence. Ordered: Postoperative Est [id number]
--- OUTSIDE RECORDS SUMMARY | 2017-01-09 10:54 | XMS REPORT | Continuity of Care Document ---
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 - * Fair Control Chronic ischemic heart disease, unspecified - *Chronic Hypercholesterolemia - *Chronic Hypertension, Benign - *Chronic Myalgia and myositis, unspecified - *Chronic Ganglion cyst of wrist - *Chronic Hypercholesterolemia - *Chronic BPH - *Chronic Abdominal Pain - *Acute Chronic ischemic heart disease, unspecified - *Chronic Abdominal pain, other specified site - *Chronic 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 - Active Immunizations Vaccine Date Status Comments Flu (split) (3 yrs or older) completed Td (adult) completed - Completed reason: source unspecified Td (adult) completed - Completed reason: source unspecified Zoster completed - Completed reason: source unspecified pneumo (2 yrs or older) (PPV23) completed - Completed reason: source unspecified Flu (split) (3 yrs or older) completed Results Test Name Date and Time Measure Units Reference Range Abnormal Flag Comments Panel Description: Urinalysis with Reflex Microscopic Appearance 13:50:00 Clear Color 13:50:00 Yellow Glucose, Urine 13:50:00 Negative Negative Ketones 13:50:00 Negative Negative Blood 13:50:00 Negative Negative Protein 13:50:00 Negative Negative Nitrites 13:50:00 Negative Negative Bilirubin 13:50:00 Negative Negative Specific [place] 13:50:00 1.009 1.003-1.03 pH 13:50:00 6.0 5.0-8.0 Urobilinogen 13:50:00 0.2 mg/dL <1.0 Leukocyte Esterase 13:50:00 Negative Negative Testing performed at [facility] [address] [address] Shock Absorption Floor Layer Missael Henderson MD Panel Description: Urinalysis with Reflex Microscopic Appearance 13:50:00 Clear Color 13:50:00 Yellow Glucose, Urine 13:50:00 Negative Negative Ketones 13:50:00 Negative Negative Blood 13:50:00 Negative Negative Protein 13:50:00 Negative Negative Nitrites 13:50:00 Negative Negative Bilirubin 13:50:00 Negative Negative Specific [place] 13:50:00 1.009 1.003-1.03 pH 13:50:00 6.0 5.0-8.0 Urobilinogen 13:50:00 0.2 mg/dL <1.0 Leukocyte Esterase 13:50:00 Negative Negative Testing performed at [facility] [address] [place] [address] Shock Absorption Floor Layer Missael Henderson MD Panel Description: Urine Culture/Sensitivity-[facility] Urine Culture 13:50:00 Source: Urine Collected: 09/26/13 15:00 Site: [facility] Received : 09/26/13 20:15 Order#: [id number] is the Site? : [facility] PRELIM 09/27/13 12:20 Gram negative bacillus being identified 10-30,000 cfu/mlKEY FOR RESULTS: * - NEW RESULT - RESULT WAS MODIFIED AFTER FINAL STATUS SETPerform at [facility] [address] [place] [address] Shock Absorption Floor Layer Missael Henderson MD Panel Description: Urine Culture/Sensitivity-[facility] Urine Culture 13:50:00 Source: Urine Collected: 09/26/13 15:00 Site: [facility] Received : 09/26/13 20:15 Order#: [id number] is the Site? : [facility] FINAL 09/28/13 07:12 Escherichia coli 10-30,000 cfu/ml E. coli Antibiotic JOSÉ MIGUEL INT Ampicillin <=2 S Ampicillin/sulbactam <=2 S Cefazolin <=4 S Ceftriaxone <=1 S Ciprofloxacin <=0.25 S Gentamicin <=1 S Nitrofurantoin 32 S Trimethoprim/Sulfa <=20 S S=SUSCEPTIBLE I=INTERMEDIATE R=RESISTANT S-DD= SUSCEPTIBLE, DOSE DEPENDENT KEY FOR RESULTS: * - NEW RESULT - RESULT WAS MODIFIED AFTER FINAL STATUS SETPerform at [facility] [address] [address] Shock Absorption Floor Layer Missael Henderson MD Vital Signs Date / Time: Height Weight Pulse Rate Blood Pressure Temperature /13:46:00 69.00 in 168.00 lbs 118/80 mm[Hg] Procedures Procedure Date Unknown Encounters Encounter Location Date Patient Visit [facility] Urology Patient Visit [facility] Patient Visit [facility] [place] Patient Visit [facility] [place] Patient Visit [facility] [place] [facility] [place] [facility] [place] Patient [place] [facility] [place] [facility] [place] [facility] [place] [facility] [place] Patient Visit [facility] Patient Visit [place] Patient Visit [facility] Patient Visit [facility] Patient Visit [facility] New Patient Visit [facility] Patient Visit [facility] Advance Directives Directive Effective Date Unknown
--- OUTSIDE RECORDS SUMMARY | 2017-01-09 10:54 | XMS REPORT | Referral Summary ---
Author Organization Unknown Address Unknown Phone Unavailable Care Team Providers Care Thimble Press Operator Name Role Phone Macie Delgado Primary Care Physician [phone] Encounter [facility] [id number] Date(s): 12/26/14 - 12/26/14 [facility], Cardiology [address] [place], [place] [address] Discharge Diagnosis: Anxiety Discharge Diagnosis: Chest pain Discharge Diagnosis: Coronary heart disease Discharge Diagnosis: Leg pain Discharge Disposition: Home or Self Care Attending Physician: Santiago Bernal MD Admitting Physician: Santiago Bernal MD Vital Signs Most recent to 1 oldest [Reference Range]: Peripheral Pulse 56 bpm Rate [60-100 bpm] *LOW* (12/26/14 1:02 PM) Blood Pressure 116/72 mmHg [90-140/60-90 mmHg] (12/26/14 1:02 PM) Problem List Condition Effective Dates Status [...] pain, # 100 tabs, 0 Refill(s), Pharmacy: [facility], 1 tabs SubLingual q5min,PRN:as needed for chest pain Start Date: 08/05/14 Status: Ordered simvastatin 20 mg oral tablet 1 tabs, Oral, Bedtime (once a day), # 90 tabs, 3 Refill(s), Pharmacy: [facility], 1 tabs Oral Bedtime (once a day) Start Date: 09/23/14 Status: Ordered Results Hematology Most recent to 1 oldest [Reference Range]: WBC [4.8-10.8 K/uL] 7.6 K/uL (12/26/14 1:56 PM) RBC [4.60-6.20 M/uL] 4.86 M/uL (12/26/14 1:56 PM) Hgb [14.0-18.0 15.1 gm/dL gm/dL] (12/26/14 1:56 PM) Hct [42.0-52.0 %] 43.1 % (12/26/14 1:56 PM) MCV [82.0-99.0 fL] 88.7 fL (12/26/14 1:56 PM) MCH [27.0-32.0 pg] 31.1 pg (12/26/14 1:56 PM) MCHC [32.0-36.0 35.0 gm/dL gm/dL] (12/26/14 1:56 PM) RDW [11.5-14.5 %] 12.7 % (12/26/14 1:56 PM) Platelet [150-400 178 K/uL K/uL] (12/26/14 1:56 PM) MPV [8.8-14.8 fL] 10.4 fL (12/26/14 1:56 PM) Immature 0.1 % Granulocytes (12/26/14 1:56 PM) [0.0-1.0 %] Neutrophils [51-75 75 % %] (12/26/14 1:56 PM) Lymphocytes [20-46 17 % %] *LOW* (12/26/14 1:56 PM) Monocytes [4-11 %] 5 % (12/26/14 1:56 PM) Eosinophils [0-4 %] 2 % (12/26/14 1:56 PM) Basophils [0-2 %] 0 % (12/26/14 1:56 PM) Neutro Absolute 5.74 THOUS [1.90-7.00 THOUS] (12/26/14 1:56 PM) Lymph Absolute 1.32 THOUS [0.80-3.30 THOUS] (12/26/14 1:56 PM) [place] Absolute 0.37 THOUS [0.30-1.00 THOUS] (12/26/14 1:56 PM) Eos Absolute 0.16 THOUS [0.00-0.50 THOUS] (12/26/14 1:56 PM) Baso Absolute 0.02 THOUS [0.00-0.20 THOUS] (12/26/14 1:56 PM) Chemistry Most recent to 1 oldest [Reference Range]: Total CK [30-200 98 unit/L unit/L] (12/26/14 1:56 PM) BNP [0-99 pg/mL] 43 pg/mL (12/26/14 1:56 PM) Troponin [0.00-0.03 0.00 ng/mL ng/mL] (12/26/14 1:56 PM) Immunizations Vaccine Date Refusal Reason influenza virus [...] Visit Note Author: Santiago Bernal MD Date: 12/26/14 Assessment/Plan 1.Chest pain Ordered: EKG with Interpretation [id number] NM Myocardial Spect Multi Rest/Stress 2.Coronary heart disease Ordered: NM Myocardial Spect Multi Rest/Stress 3.Leg pain Ordered: NM Myocardial Spect Multi Rest/Stress 4.Anxiety Discussion the patient's symptom is probably noncardiac. However, we know that he has underlying coronary artery disease and therefore it is important for us to keep an open mind. The patient has a long history of apprehension and atypical symptoms and probably the best solution is relatively frequent noninvasive testing to reassure the patient and us that he is doing okay. Accordingly, we arranged a repeat stress test this year. We will check troponin levels and a sedimentation rate today. The patient seems reassured after we listened to his symptoms.
--- OUTSIDE RECORDS SUMMARY | 2017-01-09 10:54 | XMS REPORT | Referral Summary ---
Author Author [facility] Organization [facility] Address Unknown Phone Unavailable Care Team Providers Care Bag Valver Name Role Phone Simon Fritz Primary Care Physician [phone] Encounter [facility] [id number] Date(s): 10/21/15 - 10/21/15 [facility] [address] [place], [place] [address] Discharge Diagnosis: Knee osteoarthritis Discharge Diagnosis: Statin intolerance Discharge Diagnosis: Situational stress Discharge Diagnosis: Atypical chest pain Discharge Diagnosis: Hypercholesteremia Discharge Diagnosis: Coronary heart disease Discharge Disposition: 01-Home or Self Care Attending Physician: Santiago Bernal MD Admitting Physician: Santiago Bernal MD Vital Signs Most recent to 1 oldest [Reference Range]: Peripheral Pulse 52 bpm Rate [60-100 bpm] *LOW* (10/21/15 3:14 PM) Blood Pressure 118/80 mmHg [90-140/60-90 mmHg] (10/21/15 3:14 PM) Problem List Condition Effective Dates Status [...] DAILY, # 90 tabs, 3 Refill(s), eRx: [facility], TAKE ONE TABLET BY MOUTH ONCE DAILY Start Date: 01/23/15 Status: Ordered Nitrostat 0.4 mg sublingual tablet 1 tabs, SubLingual, q5min, as needed for chest pain, # 100 tabs, 0 Refill(s), Pharmacy: [facility], 1 tabs SubLingual q5min,PRN:as needed for chest pain Start Date: 08/05/14 Status: Ordered pravastatin 40 mg oral tablet 40 mg 1 tabs, Oral, Daily, # 90 tabs, 3 Refill(s), Pharmacy: [facility], 1 tabs Oral Daily [...] Visit Note Author: Santiago Bernal MD Date: 10/21/15 Assessment/Plan 1.Atypical chest pain 2.Coronary heart disease 3.Hypercholesteremia 4.Knee osteoarthritis 5.Statin intolerance 6.Situational stress Discussion: His EKG and his troponin are both normal. The symptom that he is describing doesn't really sound cardiac. The patient has a long-standing history ofrather extraordinary vigilance. At this point,he appears safe with regard to his chest pain symptomsand I suspect that they are due to his unusual activity. We had a long discussion about his work andworking to the intensity that he has been doing probablyis imprudent considering his age and heart disease. We encouraged him to take up some form of activity that we'll give him a sense of achievement withoutundue physical stress. We encouraged him to call if his symptoms worsen or change. We educated him regarding characteristics of cardiac pain that would prompt more urgent attention. Time of visit approximately 30 minutesmuch of which was dedicated to education andactive listening and providing suggestions for him.
--- OUTSIDE RECORDS SUMMARY | 2017-01-09 10:55 | XMS REPORT | Referral Summary ---
Author Author [facility] Organization [facility] Address Unknown Phone Unavailable Care Team Providers Care Teleradiologist Name Role Phone Simon Fritz Primary Care Physician [phone] Encounter [facility] [id number] Date(s): 05/18/16 - 05/18/16 [facility] [address] [place]ISAEL Velas[place] [address] Discharge Diagnosis: Headache Discharge Diagnosis: Chronic ischemic heart disease Discharge Diagnosis: Dyslipidemia Discharge Diagnosis: Facial skin lesion Discharge Diagnosis: Encounter for medication monitoring Discharge Diagnosis: CAD (coronary artery disease) Discharge Disposition: 01-Home or Self Care Attending Physician: Juan Fritz MD Admitting Physician: Juan Fritz MD Vital Signs Most recent to 1 oldest [Reference Range]: Peripheral Pulse 63 bpm Rate [60-100 bpm] (05/18/16 10:40 AM) Respiratory Rate 18 br/min [14-20 br/min] (05/18/16 10:40 AM) Blood Pressure 120/70 mmHg [90-140/60-90 mmHg] (05/18/16 10:40 AM) SpO2 98 % (05/18/16 10:40 AM) Problem List Condition Effective Dates Status [...] MOUTH ONCE DAILY, # 90 tabs, [facility], TAKE ONE TABLET BY MOUTH ONCE DAILY Start Date: 04/13/16 Status: Ordered Nitrostat 0.4 mg sublingual tablet 1 tabs, SubLingual, q5min, as needed for chest pain, # 100 tabs, 0 Refill(s), [facility], 1 tabs SubLingual q5min,PRN:as needed for chest pain Start Date: 08/05/14 Status: Ordered nortriptyline 10 mg oral capsule 10 mg 1 caps, Oral, Daily, 0 Refill(s) Start Date: 05/18/16 Status: Ordered pravastatin 40 mg oral tablet 40 mg 1 tabs, Oral, Every other day, # 90 tabs, 3 Refill(s), Pharmacy: [facility], 1 tabs Oral Daily Start [...] smoker Assessment and Plan Extracted from: Title: 6 Month CDM OV Author: Juan Fritz MD Date: 05/18/16 Impression and Plan Diagnosis Dyslipidemia (HQN49-HM E78.5, Discharge, Medical). Headache ([id number] R51, Discharge, Medical). Facial skin lesion (UUT65-CJ L98.9, Discharge, Medical). Encounter for medication monitoring (IBL77-ZI Z51.81, Discharge, Medical). Chronic ischemic heart disease (SLR96-HM I25.9, Discharge, Medical). CAD (coronary artery disease) (NFC64-CE I25.10, Discharge, Medical). Intermittent drowsiness (UWM93-HN R40.0, Working, Medical).
--- OUTSIDE RECORDS SUMMARY | 2017-01-09 10:55 | XMS REPORT | Referral Summary ---
Author Author [facility] Organization [facility] Address Unknown Phone Unavailable Care Team Providers Care Hiv/Aids Care Nurse Name Role Phone Simon Fritz Primary Care Physician [phone] Encounter [facility] Date(s): 06/24/15 - 06/24/15 [facility] [address] [place] [address] MISAEL Velasquez [address] Discharge Diagnosis: Diarrhea Discharge Disposition: 01-Home or Self Care Attending Physician: Etienne Delgado MD Admitting Physician: Etienne Delgado MD Vital Signs Most recent to 1 oldest [Reference Range]: Temperature Tympanic 36.4 degC [36.6-38.1 degC] *LOW* (06/24/15 9:10 AM) Peripheral Pulse 51 bpm Rate [60-100 bpm] *LOW* (06/24/15 9:10 AM) Blood Pressure 102/60 mmHg [90-140/60-90 mmHg] (06/24/15 9:10 AM) SpO2 98 % (06/24/15 9:10 AM) Problem List Condition Effective Dates Status [...] DAILY, # 90 tabs, 3 Refill(s), eRx: [id number], TAKE ONE TABLET BY MOUTH ONCE DAILY Start Date: 01/23/15 Status: Ordered Nitrostat 0.4 mg sublingual tablet 1 tabs, SubLingual, q5min, as needed for chest pain, # 100 tabs, 0 Refill(s), Pharmacy: [facility], 1 tabs SubLingual q5min,PRN:as needed for chest pain Start Date: 08/05/14 Status: Ordered pravastatin 40 mg oral tablet 40 mg 1 tabs, Oral, Daily, # 90 tabs, 3 Refill(s), Pharmacy: [facility], 1 tabs Oral Daily Start [...] 1971 Repair of inguinal hernia - L 1965 Repair of inguinal hernia - L 1956 Circumcision Social History Social History Type Response Smoking Status Never smoker Assessment and Plan Extracted from: Title: Ambulatory Patient Education Author: Etienne Delgado MD Date: 06/24 Family Medicine Diarrhea Diarrhea is frequent loose and watery bowel movements. It can cause you to feel weak and dehydrated. Dehydration can cause you to become tired and thirsty, have a dry mouth, and have decreased urination that often is dark yellow. Diarrhea is a sign of another problem, most often an infection that will not last long. In most cases, diarrhea typically lasts 23 days. However, it can last longer if it is a sign of something more serious. It is important to treat your diarrhea as directed by your caregive to lessen or prevent future episodes of diarrhea. CAUSES Some common causes include: Gastrointestinal infections caused by viruses, bacteria, or parasites. Food poisoning or food allergies. Certain medicines, such as antibiotics, chemotherapy, and laxatives. Artificial sweeteners and fructose. Digestive disorders. HOME CARE INSTRUCTIONS Ensure adequate fluid intake (hydration): have 1 cup (8 oz) of fluid for each diarrhea episode. Avoid fluids that contain simple sugars or sports drinks , fruit juices, whole milk products, and sodas. Your urine should be clear or pale yellow if you are drinking enough fluids. Hydrate with an oral rehydration solution that you can purchase at pharmacies, retail stores, and online. You can prepare an oral rehydration solution at home by mixing the following ingredients together: tsp table salt. tsp baking soda. tsp salt substitute containing potassium chloride. 1 tablespoons sugar. 1 L (34 oz) of water. Certain foods and beverages may increase the speed at which food moves through the gastrointestinal (GI) tract. These foods and beverages should be avoided and include: Caffeinated and alcoholic beverages. High-fiber foods, such as raw fruits and vegetables, nuts, seeds, and whole grain breads and cereals. Foods and beverages sweetened with sugar alcohols, such as xylitol, sorbitol, and mannitol. Some foods may be well tolerated and may help thicken stool including: Starchy foods, such as rice, toast, pasta, low-sugar cereal, oatmeal, grits , baked potatoes, crackers, and bagels. Bananas. Applesauce. Add probiotic-rich foods to help increase healthy bacteria in the GI tract , such as yogurt and fermented milk products. Wash your hands well after each diarrhea episode. Only take xmxt-jze-ckjafoi or prescription medicines as directed by your caregiver. Take a warm bath to relieve any burning or pain from frequent diarrhea episodes. SEEK IMMEDIATE MEDICAL CARE IF: You are unable to keep fluids down. You have persistent vomiting. You have blood in your stool, or your stools are black and tarry. You do not urinate in 68 hours, or there is only a small amount of very dark urine. You have abdominal pain that increases or localizes. You have weakness, dizziness, confusion, or lightheadedness. You have a severe headache. Your diarrhea gets worse or does not get better. You have a fever or persistent symptoms for more than 23 days. You have a fever and your symptoms suddenly get worse. MAKE SURE YOU: Understand these instructions. Will watch your condition. Will get help right away if you are not doing well or get worse. Document Released: 09/30/2003 Document Revised: 09/26/2013 Document Reviewed: ExitCare Patient Information 2015 [employer]. This information is not intended to replace advice given to you by your health care provider. Make sure you discuss any questions you have with your health care provider. Follow Up With: Where: When: Etienne Delgado [address] [place] [address] Drive; [place] [address] Business (1) Within 3 to 5 days, only if needed Comments: Extracted from: Title: Office Visit Note Author: Etienne Delgado MD Date: 06/24/15 Assessment/Plan Diarrhea This may be viral. He was advised to follow the BRAT diet. He was advised to avoid milk or milk products in his diet for a few days. He was advised to have a GI panel checked if the has persistent watery diarrhea. At the present time his stools seem to be starting to firm up.
--- OUTSIDE RECORDS SUMMARY | 2017-01-09 10:55 | XMS REPORT | Referral Summary ---
Author Author [facility] Organization [facility] Address Unknown Phone Unavailable Care Team Providers Care Cyber Operator Name Role Phone Macie Delgado Primary Care Physician [phone] Encounter Date(s): 07/30/15 - 07/30/15 [facility] [address] [place] [address] MISAEL Velasquez [id number] Discharge Diagnosis: Statin intolerance [...] DAILY, # 90 tabs, 3 Refill(s), eRx: [facility], TAKE ONE TABLET BY MOUTH ONCE DAILY Start Date: 01/23/15 Status: Ordered Nitrostat 0.4 mg sublingual tablet 1 tabs, SubLingual, q5min, as needed for chest pain, # 100 tabs, 0 Refill(s), Pharmacy: [facility], 1 tabs SubLingual q5min,PRN:as needed for chest pain Start Date: 08/05/14 Status: Ordered simvastatin 20 mg oral tablet 1 tabs, Oral, Bedtime (once a day), # 90 tabs, 3 Refill(s), Pharmacy: [facility], 1 tabs Oral Bedtime (once [...]
--- OUTSIDE RECORDS SUMMARY | 2017-01-09 10:55 | XMS REPORT | Referral Summary ---
Author Author [facility] Organization [facility] Address Unknown Phone Unavailable Care Team Providers Care Area Director Of Home Health Sales Name Role Phone Simon Fritz Primary Care Physician [phone] Encounter VC Date(s): 11/11/16 - 11/11/16 [facility] [address] [place] Velas[place] [id number] Discharge Disposition: 01-Home or Self Care Attending Physician: Deion Khalil APRN Admitting Physician: Deion Khalil APRN Vital Signs Most recent to 1 oldest [Reference Range]: Temperature Tympanic 35.7 degC [36.6-38.1 degC] *LOW* (11/11/16 10:47 AM) Peripheral Pulse 53 bpm Rate [60-100 bpm] *LOW* (11/11/16 10:47 AM) Respiratory Rate 16 br/min [14-20 br/min] (11/11/16 10:47 AM) Blood Pressure 126/70 mmHg [90-140/60-90 mmHg] (11/11/16 10:47 AM) SpO2 98 % (11/11/16 10:47 AM) Problem List Condition Effective Dates Status [...] Ordered Metoprolol Tartrate 25 mg oral tablet 25 mg 1 tabs, Oral, Daily, # 30 tabs, 3 Refill(s), Pharmacy: [facility], 1 tabs Oral Daily Start Date: 11/09/16 Status: Ordered Nitrostat 0.4 mg sublingual tablet See Instructions, DISSOLVE ONE TABLET UNDER THE TONGUE EVERY 5 MINUTES NEEDED FOR CHEST PAIN. DO NOT EXCEED A TOTAL OF 3 DOSES IN 15 MINUTES, # 100 unknown unit, eRx: [facility], DISSOLVE ONE TABLET UNDER THE TONGUE EVERY 5 MINUTES ... Start Date: 08/20/16 Status: Ordered nortriptyline 10 mg oral capsule 10 mg 1 caps, Oral, Daily, take one capsule by mouth daily, 0 Refill(s) Start Date: 05/18/16 Status: Ordered pravastatin 40 mg oral tablet See Instructions, TAKE ONE TABLET BY MOUTH ONCE DAILY, # 90 tabs, eRx: [facility], TAKE ONE TABLET BY MOUTH ONCE DAILY Start Date: 11/09/16 Status: Ordered Results No data available for [...]
--- OUTSIDE RECORDS SUMMARY | 2017-01-09 10:55 | XMS REPORT | Referral Summary ---
Author Organization Unknown Address Unknown Phone Unavailable Care Team Providers Care Merchandise Coordinator Name Role Phone Macie Delgado Primary Care Physician [phone] Encounter [facility] [id number] Date(s): 01/01/15 - 01/01/15 [facility] [address] [place], [place] [address] Discharge Disposition: Home or Self Care Attending Physician: Maricruz Carlisle MD Admitting Physician: Maricruz Carlisle MD Vital Signs Most recent to 1 oldest [Reference Range]: Peripheral Pulse 57 bpm Rate [60-100 bpm] *LOW* (01/01/15 1:14 PM) Blood Pressure 108/76 mmHg [90-140/60-90 mmHg] (01/01/15 1:14 PM) Problem List Condition Effective Dates [...] pain, # 100 tabs, 0 Refill(s), Pharmacy: [facility], 1 tabs SubLingual q5min,PRN:as needed for chest pain Start Date: 08/05/14 Status: Ordered simvastatin 20 mg oral tablet 1 tabs, Oral, Bedtime (once a day), # 90 tabs, 3 Refill(s), Pharmacy: [facility], 1 tabs Oral Bedtime (once [...]
--- OUTSIDE RECORDS SUMMARY | 2017-01-09 10:55 | XMS REPORT | Referral Summary ---
Author Author [facility] Organization [facility] Address Unknown Phone Unavailable Care Team Providers Care Gallery Or Museum Guide Name Role Phone Simon Fritz Primary Care Physician [phone] Encounter Date(s): 04/23/15 - 04/23/15 [facility] [address] [place] [address] MISAEL Velasquez [id number] Discharge Diagnosis: Hypercholesterolemia. Discharge Diagnosis: Inflamed sebaceous cyst Discharge Diagnosis: Essential hypertension Discharge Diagnosis: BPH (benign prostatic hyperplasia) Discharge Diagnosis: Ischemic heart disease Discharge Disposition: 01-Home or Self Care Attending Physician: Etienne Delgado MD Admitting Physician: Etienne Delgado MD Vital Signs Most recent to 1 oldest [Reference Range]: Temperature Tympanic 35.8 degC [36.6-38.1 degC] *LOW* (04/23/15 10:16 AM) Peripheral Pulse 52 bpm Rate [60-100 bpm] *LOW* (04/23/15 10:16 AM) Respiratory Rate 16 br/min [14-20 br/min] (04/23/15 10:16 AM) Blood Pressure 98/62 mmHg [90-140/60-90 mmHg] (04/23/15 10:16 AM) SpO2 97 % (04/23/15 10:16 AM) Problem List Condition Effective Dates Status [...] DAILY, # 90 tabs, 3 Refill(s), eRx: [facility], TAKE ONE TABLET BY MOUTH ONCE DAILY Start Date: 01/23/15 Status: Ordered Nitrostat 0.4 mg sublingual tablet 1 tabs, SubLingual, q5min, as needed for chest pain, # 100 tabs, 0 Refill(s), Pharmacy: [facility], 1 tabs SubLingual q5min,PRN:as needed for chest pain Start Date: 08/05/14 Status: Ordered pravastatin 40 mg oral tablet 40 mg 1 tabs, Oral, Daily, # 90 tabs, 3 Refill(s), Pharmacy: [facility], 1 tabs Oral Daily [...] Patient Education Author: Etienne Delgado MD Date: 04/23 Family Medicine Epidermal Cyst An epidermal cyst is sometimes called a sebaceous cyst, epidermal inclusion cyst , or infundibular cyst. These cysts usually contain a substance that looks "pasty" or "cheesy" and may have a bad smell. This substance is a protein called keratin. Epidermal cysts are usually found on the face, neck, or trunk. They may also occur in the vaginal area or other parts of the genitalia of both men and women. Epidermal cysts are usually small, painless, slow-growing bumps or lumps that move freely under the skin. It is important not to try to pop them. This may cause an infection and lead to tenderness and swelling. CAUSES Epidermal cysts may be caused by a deep penetrating injury to the skin or a plugged hair follicle, often associated with acne. SYMPTOMS Epidermal cysts can become inflamed and cause: Redness. Tenderness. Increased temperature of the skin over the bumps or lumps. Grayish-white, bad smelling material that drains from the bump or lump. DIAGNOSIS Epidermal cysts are easily diagnosed by your caregiver during an exam. Rarely, a tissue sample (biopsy ) may be taken to rule out other conditions that may resemble epidermal cysts. TREATMENT Epidermal cysts often get better and disappear on their own. They are rarely ever cancerous. If a cyst becomes infected, it may become inflamed and tender. This may require opening and draining the cyst. Treatment with antibiotics may be necessary. When the infection is gone, the cyst may be removed with minor surgery. Small, inflamed cysts can often be treated with antibiotics or by injecting steroid medicines. Sometimes, epidermal cysts become large and bothersome. If this happens, surgical removal in your caregiver's office may be necessary. HOME CARE INSTRUCTIONS Only take uddj-xch-fptvazx or prescription medicines as directed by your caregiver. Take your antibiotics as directed. Finish them even if you start to feel better. SEEK MEDICAL CARE IF: Your cyst becomes tender, red, or swollen. Your condition is not improving or is getting worse. You have any other questions or concerns. MAKE SURE YOU: Understand these instructions. Will watch your condition. Will get help right away if you are not doing well or get worse. Document Released: 09/10/2005 Document Revised: 01/01/2013 Document Reviewed: [employer] Patient Information 2014 [employer]. Follow Up With: Where: When: Etienne Delgado [address] [place] [address] Drive; Via [facility] [place] [address] Outside.in (1) In 4 months 08/24/2015 Comments: Extracted from: Title: Office Visit Note Author: Etienne Delgado MD Date: 04/23/15 Assessment/Plan BPH (benign prostatic hyperplasia) This has been stable recently. Essential hypertension His blood pressure today is lower than usual. He is not symptomatic. He will continue his same medication. Hypercholesterolemia. He has decided not to take simvastatin. Inflamed sebaceous cyst He will be placed on cephalexin 5 her milligrams 4 times daily 1 week. He will be scheduled to see Dr. Alcala next week. Ischemic heart disease This has not been symptomatic recently. Orders: cephalexin, 500 mg 1 caps, Oral, QID, X 7 days, # 28 caps, 0 Refill(s) , Pharmacy: [id number], 1 caps Oral QID,x7 days
--- OUTSIDE RECORDS SUMMARY | 2017-01-09 10:55 | XMS REPORT | Referral Summary ---
Author Author [facility] Organization [facility] Address Unknown Phone Unavailable Care Team Providers Care Tank Assembler Name Role Phone Simon Fritz Primary Care Physician [phone] Encounter Date(s): 12/18/15 - 12/18/15 [facility] [address] [place] Velas[place] [address] Discharge Diagnosis: Chronic daily headache Discharge Diagnosis: ETD (eustachian tube dysfunction) Discharge Diagnosis: Decreased hearing Discharge Diagnosis: Impacted cerumen Discharge Disposition: 01-Home or Self Care Attending Physician: Ceferino Arreaga DO Admitting Physician: Ceferino Arreaga DO Vital Signs Most recent to 1 oldest [Reference Range]: Temperature Tympanic 35.6 degC [36.6-38.1 degC] *LOW* (12/18/15 9:10 AM) Peripheral Pulse 78 bpm Rate [60-100 bpm] (12/18/15 9:10 AM) Blood Pressure 135/92 mmHg [90-140/60-90 mmHg] (12/18/15 9:10 AM) Problem List Condition Effective Dates [...] DAILY, # 90 tabs, 3 Refill(s), eRx: [facility], TAKE ONE TABLET BY MOUTH ONCE DAILY Start Date: 01/23/15 Status: Ordered Nitrostat 0.4 mg sublingual tablet 1 tabs, SubLingual, q5min, as needed for chest pain, # 100 tabs, 0 Refill(s), Pharmacy: [facility], 1 tabs SubLingual q5min,PRN:as needed for chest pain Start Date: 08/05/14 Status: Ordered pravastatin 40 mg oral tablet 40 mg 1 tabs, Oral, Daily, # 90 tabs, 3 Refill(s), Pharmacy: [facility], 1 tabs Oral Daily Start [...] Extracted from: Title: Office Visit Note Author: Ceferino Arreaga DO Date: 12/18/15 Assessment/Plan Acute Eustachian salpingitis, bilateral, ETD (eustachian tube dysfunction) 1. Pathophysiology of this presentation discussed in detail with the patient , he had lots of questions regarding this presentation. All questions were answered. 2. Recommended zstq-crq-ntcyply antihistamine one tablet daily. 3. If no improvement in 2-3 weeks then I recommend ENT evaluation. Ordered: Office Visit Level 4 Est 29439 Chronic daily headache, Headache 1. Continue with recommendation by primary care provider. 2. Continue with neurologist consult. Ordered: Office Visit Level 4 Est 99832 Decreased hearing, Other specified hearing loss, bilateral As above. Ordered: Office Visit Level 4 Est 13325 Impacted cerumen, Impacted cerumen, right ear 1. Cerumen disimpaction was done today, reevaluation of the auditory canal and tympanic membrane was normal. Over 25 minutes was spent xquj-rb-ovbm with this patient, more than 50 percent of the time was spent with counseling regarding eustachian tube dysfunction, reviewing his imaging and recommendations for his headaches. Ordered: Office Visit Level 4 Est 03782
--- OUTSIDE RECORDS SUMMARY | 2017-01-09 10:55 | XMS REPORT | Summary of Care ---
Author Author Kosta Armstrong M.D. Unknown Address [address] [place] [address] [place] [address] Phone Unavailable Care Team Providers Care Actuarial Clerk Name Role Phone Juan Fritz PP Unavailable [...]
--- OUTSIDE RECORDS SUMMARY | 2017-01-09 10:55 | XMS REPORT | Referral Summary ---
Author Author [facility] Organization [facility] Address Unknown Phone Unavailable Care Team Providers Care Business Education Teacher Name Role Phone Simon Fritz Primary Care Physician [phone] Encounter Date(s): 11/28/15 - 11/28/15 [facility] [address] [place] Velas[place] [address] Discharge Diagnosis: Dysphasia Discharge Diagnosis: Atypical chest pain Discharge Diagnosis: CAD (coronary artery disease) Discharge Diagnosis: Mild headache Discharge Diagnosis: Left facial numbness Discharge Diagnosis: Benign essential hypertension Discharge Disposition: 01-Home or Self Care Attending Physician: Juan Fritz MD Admitting Physician: Juan Fritz MD Vital Signs Most recent to 1 oldest [Reference Range]: Peripheral Pulse 53 bpm Rate [60-100 bpm] *LOW* (11/28/15 2:41 PM) Blood Pressure 125/85 mmHg [90-140/60-90 mmHg] (11/28/15 2:41 PM) SpO2 97 % (11/28/15 2:41 PM) Problem List Condition Effective Dates Status [...] DAILY, # 90 tabs, 3 Refill(s), eRx: [facility], TAKE ONE TABLET BY MOUTH ONCE DAILY Start Date: 01/23/15 Status: Ordered Nitrostat 0.4 mg sublingual tablet 1 tabs, SubLingual, q5min, as needed for chest pain, # 100 tabs, 0 Refill(s), Pharmacy: [facility], 1 tabs SubLingual q5min,PRN:as needed for chest pain Start Date: 08/05/14 Status: Ordered pravastatin 40 mg oral tablet 40 mg 1 tabs, Oral, Daily, # 90 tabs, 3 Refill(s), Pharmacy: [facility], 1 tabs Oral Daily [...] Extracted from: Title: Office Visit Note Author: Juan Fritz MD Date: 11/28/15 Assessment/Plan Atypical chest pain Benign essential hypertension CAD (coronary artery disease) Dysphasia Ordered: MRI Brain w/o Contrast US Carotid Duplex Bilateral Left facial numbness Mild headache The symptoms of episodic dyspha bib are concerning for possible TIA. We discussed this and I advised that if he has recurrent symptoms lasting more than a few minutes, he should call 911 and go in for immediate evaluation. He talked about the concept of " brain attack " similar to " heart attack " . He is to continue on one aspirin daily. Workup to include MRI and carotid Doppler was initiated. His chest discomfort symptoms seem quite atypical for cardiac cause and are really unchanged. He was evaluated by Dr. Bernal who also recommended no further evaluation at that time. I think there is an element of anxiety in this symptom and Huizar several of his other symptoms. We discussed the headache and differential diagnosis. He had lots of questions about this. The MRI which were doing to evaluate possibility of a symptoms will also help to rule out serious intracranial pathology. Follow-up based on test results or if he develops more acute symptoms in the meantime.
--- OUTSIDE RECORDS SUMMARY | 2017-01-09 10:55 | XMS REPORT | Referral Summary ---
Author Author [facility] Organization [facility] Address Unknown Phone Unavailable Care Team Providers Care Manager Editorial Name Role Phone Simon Fritz Primary Care Physician [phone] Encounter [facility] Date(s): 11/03/15 - 11/03/15 [facility] [address] [place] [address] Discharge Disposition: 01-Home or Self Care Attending Physician: Deion Khalil APRN Admitting Physician: Deion Khalil APRN Vital Signs Most recent to 1 oldest [Reference Range]: Peripheral Pulse 98 bpm Rate [60-100 bpm] (11/03/15 12:52 PM) Respiratory Rate 18 br/min [14-20 br/min] (11/03/15 12:52 PM) Blood Pressure 110/72 mmHg [90-140/60-90 mmHg] (11/03/15 12:52 PM) SpO2 61 % (11/03/15 12:52 PM) Problem List Condition Effective Dates Status [...] DAILY, # 90 tabs, 3 Refill(s), eRx: [facility], TAKE ONE TABLET BY MOUTH ONCE DAILY Start Date: 01/23/15 Status: Ordered Nitrostat 0.4 mg sublingual tablet 1 tabs, SubLingual, q5min, as needed for chest pain, # 100 tabs, 0 Refill(s), Pharmacy: [facility], 1 tabs SubLingual q5min,PRN:as needed for chest pain Start Date: 08/05/14 Status: Ordered pravastatin 40 mg oral tablet 40 mg 1 tabs, Oral, Daily, # 90 tabs, 3 Refill(s), Pharmacy: [facility], 1 tabs Oral Daily [...]
--- OUTSIDE RECORDS SUMMARY | 2017-01-09 10:55 | XMS REPORT | Referral Summary ---
Author Author [facility] Organization [facility] Address Unknown Phone Unavailable Care Team Providers Care Poured Wall Foreman Name Role Phone Simon Fritz Primary Care Physician [phone] Encounter VC Date(s): 06/08/16 - 06/08/16 [facility] [address] [place] [id number] Discharge Disposition: 01-Home or Self Care Attending Physician: Deion Khalil APRN Admitting Physician: Deion Khalil APRN Vital Signs Most recent to 1 oldest [Reference Range]: Temperature Tympanic 36.9 degC [36.6-38.1 degC] (06/08/16 9:02 AM) Peripheral Pulse 66 bpm Rate [60-100 bpm] (06/08/16 9:02 AM) Respiratory Rate 17 br/min [14-20 br/min] (06/08/16 9:02 AM) Blood Pressure 120/62 mmHg [90-140/60-90 mmHg] (06/08/16 9:02 AM) SpO2 98 % (06/08/16 9:02 AM) Problem List Condition Effective Dates Status [...] MOUTH ONCE DAILY, # 90 tabs, eRx: [facility], TAKE ONE TABLET BY MOUTH ONCE DAILY Start Date: 04/13/16 Status: Ordered Nitrostat 0.4 mg sublingual tablet 1 tabs, SubLingual, q5min, as needed for chest pain, # 100 tabs, 0 Refill(s), Pharmacy: [facility], 1 tabs SubLingual q5min,PRN:as needed for chest pain Start Date: 08/05/14 Status: Ordered nortriptyline 10 mg oral capsule 10 mg 1 caps, Oral, Daily, 0 Refill(s) Start Date: 05/18/16 Status: Ordered pravastatin 40 mg oral tablet 40 mg 1 tabs, Oral, Every other day, # 90 tabs, 3 Refill(s), Pharmacy: [facility], 1 tabs Oral Daily [...]
--- OUTSIDE RECORDS SUMMARY | 2017-01-09 10:55 | XMS REPORT | Continuity of Care Document ---
Author Author [facility] Organization [facility] Address Unknown Phone Unavailable Allergies Active Description Code Type Severity Reaction Onset Reported/Identified Relationship to Patient Clinical Status Yes No Known Allergies NKMA N/A N/A 08/19/2014 Medications Problems Procedures Results Encounters ACCT No. Visit Date/Time Discharge Status Pt. Type Provider Facility Loc./Unit Complaint [id number] 12/26/2013 15:12:00 12/26/2013 23 :59:59 CLS Outpatient [id number] 12/10/2013 11:55:00 12/10/2013 23 :59:59 CLS Outpatient [id number] 11/22/2013 09:59:00 11/22/2013 23 :59:59 CLS Outpatient [id number] 11/13/2013 15:55:00 11/13/2013 23 :59:59 CLS Outpatient [id number] 09/26/2013 13:45:00 09/26/2013 23 :59:59 CLS Outpatient
--- OUTSIDE RECORDS SUMMARY | 2017-01-09 10:55 | XMS REPORT | Referral Summary ---
Author Author [facility] Organization [facility] Address Unknown Phone Unavailable Care Team Providers Care Casting Director Name Role Phone Macie Delgado Primary Care Physician [phone] Encounter Date(s): 07/30/15 - 07/30/15 [facility] [address] [place] [address] [place] [id number] Discharge Diagnosis: Statin intolerance Discharge Diagnosis: Leg [...] DAILY, # 90 tabs, 3 Refill(s), [facility], TAKE ONE TABLET BY MOUTH ONCE DAILY Start Date: 01/23/15 Status: Ordered Nitrostat 0.4 mg sublingual tablet 1 tabs, SubLingual, q5min, as needed for chest pain, # 100 tabs, 0 Refill(s), Pharmacy: [facility], 1 tabs SubLingual q5min,PRN:as needed for chest pain Start Date: 08/05/14 Status: Ordered pravastatin 40 mg oral tablet 40 mg 1 tabs, Oral, Daily, # 90 tabs, 3 Refill(s), [facility] [...]
--- OUTSIDE RECORDS SUMMARY | 2017-01-09 10:56 | XMS REPORT | Referral Summary ---
Author Author [facility] Organization [facility] Address Unknown Phone Unavailable Care Team Providers Care Supervisor Cooler Service Name Role Phone Simon Fritz Primary Care Physician [phone] Encounter VC Date(s): 08/04/16 - 08/04/16 [facility] [address] [place] [id number] Discharge Disposition: 01-Home or Self Care Attending Physician: Juan Fritz MD Admitting Physician: Juan Fritz MD Vital Signs No data available for [...] unspecified site(Confirmed) Hearing Active loss(Confirmed) Hernia, inguinal, 2005 Active right(Confirmed) Dyslipidemia(Confirm Active ed) Hyperlipidemia(Confi Active [...] BY MOUTH ONCE DAILY, # 30 tabs, 0 Refill(s), Pharmacy: [facility], TAKE ONE TABLET BY MOUTH ONCE DAILY Start Date: 07/08/16 Status: Ordered Nitrostat 0.4 mg sublingual tablet 1 tabs, SubLingual, q5min, as needed for chest pain, # 100 tabs, 0 Refill(s), Pharmacy: [facility], 1 tabs SubLingual q5min,PRN:as needed for chest pain Start Date: 08/05/14 Status: Ordered nortriptyline 10 mg oral capsule 10 mg 1 caps, Oral, Daily, 0 Refill(s) Start Date: 05/18/16 Status: Ordered pravastatin 40 mg oral tablet 40 mg 1 tabs, Oral, Daily, # 90 tabs, 3 Refill(s), Pharmacy: [facility], 1 tabs Oral Daily Start Date: 08/08/15 Status: Ordered Results No data available for this section Immunizations Vaccine Date Refusal Reason influenza virus vaccine, inactivated 08/04/16 influenza virus vaccine, inactivated 08/01/15 influenza virus [...] 1966 Repair of inguinal hernia - L 7 Circumcision Social History Social History Type Response Smoking Status Never smoker Assessment and Plan No data available for this section
--- OUTSIDE RECORDS SUMMARY | 2017-01-09 10:56 | XMS REPORT | Continuity of Care Document ---
Author Author Danny MG, Etienne GLASGOW [facility] Address [address] [place] [address] Phone Care Team Providers Care Manager Name Role Phone Etienne Delgado PP Unavailable Payers Payer name Insurance type Covered democrat ID Authorization(s) Unknown Problems Condition Effective Dates (start - stop) Clinical Status Headache - *Acute Chronic ischemic heart disease, unspecified - *Chronic Chronic ischemic heart disease, unspecified - *Chronic Hypercholesterolemia - *Chronic Hypertension, Benign - *Chronic Myalgia and myositis, unspecified - *Chronic Ganglion cyst of wrist - *Chronic Chronic ischemic heart disease, unspecified - *Controlled Chest Pain, Unspecified - *Chronic Hypertension, Unspecified - *Chronic Hypercholesterolemia - *Chronic Cranial nerve III palsy, partial - *Routine Ocular pain - *Fair Control Headache - *Acute Ptosis, right eyelid - [...] Dosage Effective Dates (start - stop) Status ibuprofen 200 mg tablet take 2 Tablet (400MG) by oral route 5-6 times every day as needed with food - No Longer Active aspirin 81 mg tablet,delayed release take [...] 5 MINUTES APART EACH TIME. - Active oxcarbazepine 300 mg tablet take 1 tablet (300MG) by oral route 2 times every day 300 MG - Active metoprolol tartrate 25 mg tablet [...] Height Weight Pulse Rate Blood Pressure Temperature /10:04:00 69.00 in 170.00 lbs 48 /min 110/62 mm[Hg] 97.7 F /10:09:00 50 /min 112/66 mm[Hg] Procedures Procedure Date Unknown Encounters Encounter Location Date Patient Visit [facility] Patient Visit [facility] Patient Visit [facility] Patient Visit [facility] Patient Visit [facility] Patient Visit [facility] Patient Visit [facility] Patient Visit [facility] Patient Visit [facility] Patient Visit [facility] Patient Visit [facility] [place] Patient Visit [facility] Patient Visit [...]
--- OUTSIDE RECORDS SUMMARY | 2017-01-09 10:56 | XMS REPORT | Referral Summary ---
Author Author [facility] Organization [facility] Address Unknown Phone Unavailable Care Team Providers Care Pump Oiler Name Role Phone Macie Delgado Primary Care Physician [phone] Encounter VC Date(s): 08/01/15 - 08/01/15 [facility], [address] [place] [id number] Discharge Disposition: 01-Home or Self Care [...] DAILY, # 90 tabs, 3 Refill(s), eRx: [facility], TAKE ONE TABLET BY MOUTH ONCE DAILY Start Date: 01/23/15 Status: Ordered Nitrostat 0.4 mg sublingual tablet 1 tabs, SubLingual, q5min, as needed for chest pain, # 100 tabs, 0 Refill(s), Pharmacy: [facility], 1 tabs SubLingual q5min,PRN:as needed for chest pain Start Date: 08/05/14 Status: Ordered simvastatin 20 mg oral tablet 1 tabs, Oral, Bedtime (once a day), # 90 tabs, 3 Refill(s), Pharmacy: [facility], 1 tabs Oral Bedtime (once [...]
--- OUTSIDE RECORDS SUMMARY | 2017-01-09 10:56 | XMS REPORT | Continuity of Care Document ---
Author Author Danny MG, Etienne GLASGOW [facility] Address [address] [place] [address] Phone Care Team Providers Care Drapery Counselor Name Role Phone Etienne Delgado PP Unavailable Payers Payer name Insurance type Covered alliance party ID Authorization(s) Unknown Problems Condition Effective Dates (start - stop) Clinical Status Impacted cerumen - *Acute Third or oculomotor nerve palsy, partial - *Acute Chronic ischemic heart disease, unspecified [...] Height Weight Pulse Rate Blood Pressure Temperature /14:17:00 69.00 in 171.00 lbs 78 /min 110/62 mm[Hg] 98.3 F Procedures Procedure Date Unknown Encounters Encounter Location Date Patient Visit [facility] New Patient Visit [facility] New Patient Visit [facility] Mur Card Patient Visit [facility] Patient Visit [facility] Patient Visit [facility] Patient Visit [facility] Patient Visit [facility] Patient Visit [facility] Patient Visit [facility] Patient Visit [facility] [place] Patient Visit [facility] New IM Patient Visit [facility] Patient Visit [facility] FM Patient Visit [facility] New Surg Patient Visit [...]
--- OUTSIDE RECORDS SUMMARY | 2017-01-09 10:56 | XMS REPORT | Referral Summary ---
Author Author [facility] Organization [facility] Address Unknown Phone Unavailable Care Team Providers Care Printing Gray Cloth Tender Name Role Phone Simon Fritz Primary Care Physician [phone] Encounter Date(s): 11/19/16 - 11/19/16 [facility] [address] [place] [id number] Discharge Diagnosis: BPH (benign prostatic hypertrophy) - w/o obstruction Discharge Diagnosis: Dyslipidemia Discharge Diagnosis: Chronic daily headache Discharge Diagnosis: Benign essential hypertension Discharge Diagnosis: CAD (coronary artery disease) Discharge Diagnosis: H/O TIA (transient ischemic attack) and stroke Discharge Disposition: 01-Home or Self Care Attending Physician: Juan Fritz MD Admitting Physician: Juan Fritz MD Vital Signs Most recent to 1 oldest [Reference Range]: Peripheral Pulse 80 bpm Rate [60-100 bpm] (11/19/16 8:05 AM) Blood Pressure 118/60 mmHg [90-140/60-90 mmHg] (11/19/16 8:05 AM) Problem List Condition Effective Dates Status [...] abdominal pain(Confirmed) Generalized Active osteoarthrosis, unspecified site(Confirmed) Chronic daily Active headache(Confirmed) Hearing Active loss(Confirmed) Hernia, inguinal, 2006 Active right(Confirmed) Dyslipidemia(Confirm Active ed) Hyperlipidemia(Confi Active rmed) Morbid Active patient obesity(Confirmed) OA (osteoarthritis) Active - lower leg(Confirmed) Pneumonia(Confirmed) [...] Daily, # 30 tabs, 3 Refill(s), Pharmacy: [facility], 1 tabs Oral Daily Start Date: 11/09/16 Status: Ordered Nitrostat 0.4 mg sublingual tablet See Instructions, DISSOLVE ONE TABLET UNDER THE TONGUE EVERY 5 MINUTES NEEDED FOR CHEST PAIN. DO NOT EXCEED A TOTAL OF 3 DOSES IN 15 MINUTES, # 100 unknown unit, eRx: [facility], DISSOLVE ONE TABLET UNDER THE TONGUE EVERY 5 MINUTES ... Start Date: 08/20/16 Status: Ordered nortriptyline 10 mg oral capsule 10 mg 1 caps, Oral, Daily, take one capsule by mouth daily, 0 Refill(s) Start Date: 05/18/16 Status: Ordered pravastatin 40 mg oral tablet See Instructions, TAKE ONE TABLET BY MOUTH ONCE DAILY, # 90 tabs, eRx: [facility], TAKE ONE TABLET BY [...] smoker Assessment and Plan Extracted from: Title: CRMMP Author: Juan Fritz MD Date: 11/19/16 Impression and Plan Diagnosis Benign essential hypertension ([id number] I10, Discharge, Medical). BPH (benign prostatic hypertrophy) - w/o obstruction (LHS78-CN N40.0, Discharge , Medical). CAD (coronary artery disease) (IQS22-ZS I25.10, Discharge, Medical). Chronic daily headache (DCF72-CN R51, Discharge, Medical). Dyslipidemia (VXI53-ZI E78.5, Discharge, Medical). H/O TIA (transient ischemic attack) and stroke (YRM13-HG Z86.73, Discharge, Medical). Orders Orders (Selected) Outpatient Orders Future (On Hold) BMP: Fasting Lipid Profile: .
--- OUTSIDE RECORDS SUMMARY | 2017-01-09 10:56 | XMS REPORT | Referral Summary ---
Author Author [facility] Organization [facility] Address Unknown Phone Unavailable Care Team Providers Care Product Management Consultant Name Role Phone Simon Fritz Primary Care Physician [phone] Encounter VC Date(s): 08/04/16 - 08/04/16 [facility] [address] [place] [address] [place] [id number] Discharge Disposition: 01-Home or Self Care Attending Physician: Santiago Bernal MD Admitting Physician: Santiago Bernal MD Referring Physician: Juan Fritz MD Vital Signs Most recent to 1 oldest [Reference Range]: Peripheral Pulse 60 bpm Rate [60-100 bpm] (08/04/16 9:53 AM) Blood Pressure 110/70 mmHg [90-140/60-90 mmHg] (08/04/16 9:53 AM) Problem List Condition Effective Dates Status [...] DAILY, # 30 tabs, 0 Refill(s), Pharmacy: [facility], TAKE ONE TABLET BY MOUTH ONCE DAILY Start Date: 07/08/16 Status: Ordered Nitrostat 0.4 mg sublingual tablet 1 tabs, SubLingual, q5min, as needed for chest pain, # 100 tabs, 0 Refill(s), Pharmacy: [facility], 1 tabs SubLingual q5min,PRN:as needed for chest pain Start Date: 08/05/14 Status: Ordered nortriptyline 10 mg oral capsule 10 mg 1 caps, Oral, Daily, 0 Refill(s) Start Date: 05/18/16 Status: Ordered pravastatin 40 mg oral tablet 40 mg 1 tabs, Oral, Daily, # 90 tabs, 3 Refill(s), Pharmacy: [facility], 1 tabs Oral Daily [...] artery Repair of inguinal hernia - R 2006 Colonoscopy - normal; repeat 10 years 2004 Partial nephrectomy - R 2003 Angioplasty - [...]
--- OUTSIDE RECORDS SUMMARY | 2017-01-09 10:56 | XMS REPORT | Referral Summary ---
Author Organization Unknown Address Unknown Phone Unavailable Care Team Providers Care Brick Burner Name Role Phone Macie Delgado Primary Care Physician [phone] Encounter VC Date(s): 12/11/14 - 12/11/14 [facility] Internal [facility] [address] [place] [address] [place] [id number] Discharge Diagnosis: BPH (benign prostatic hyperplasia) Discharge Diagnosis: Hypercholesterolemia Discharge Diagnosis: Ischemic heart disease Discharge Diagnosis: Cerumen impaction Discharge Diagnosis: Essential hypertension Discharge Disposition: Home or Self Care Attending Physician: Etienne Delgado MD Admitting Physician: Etienne Delgado MD Vital Signs Most recent to 1 oldest [Reference Range]: Temperature Tympanic 35.7 degC [36.6-38.1 degC] *LOW* (12/11/14 8:42 AM) Peripheral Pulse 56 bpm Rate [60-100 bpm] *LOW* (12/11/14 8:42 AM) Respiratory Rate 16 br/min [14-20 br/min] (12/11/14 8:42 AM) Blood Pressure 112/82 mmHg [90-140/60-90 mmHg] (12/11/14 8:42 AM) Most recent to 1 oldest [Reference Range]: SpO2 97 % (12/11/14 8:42 AM) Problem List Condition Effective Dates Status [...] pain, # 100 tabs, 0 Refill(s), [facility], 1 tabs SubLingual q5min,PRN:as needed for chest pain Start Date: 08/05/14 Status: Ordered simvastatin 20 mg oral tablet 1 tabs, Oral, Bedtime (once a day), # 90 tabs, 3 Refill(s), Pharmacy: [facility], 1 tabs Oral Bedtime (once [...] 2006 Colonoscopy - normal; repeat 10 years 2003 [...] Patient Education Author: Etienne Delgado MD Date: Family Medicine Cerumen Impaction A cerumen impaction is when the wax in your ear forms a plug. This plug usually causes reduced hearing. Sometimes it also causes an earache or dizziness. Removing a cerumen impaction can be difficult and painful. The wax sticks to the ear canal. The canal is sensitive and bleeds easily. If you try to remove a heavy wax buildup with a cotton tipped swab, you may push it in further. Irrigation with water, suction, and small ear curettes may be used to clear out the wax. If the impaction is fixed to the skin in the ear canal, ear drops may be needed for a few days to loosen the wax. People who build up a lot of wax frequently can use ear wax removal products available in your local drugstore. SEEK MEDICAL CARE IF: You develop an earache, increased hearing loss, or marked dizziness. Document Released: 11/17/2005 Document Revised: 01/01/2013 Document Reviewed: ExitCare Patient Information 2014 [employer]. Follow Up With: Where: When: Etienne Delgado [address] [place] [address] Drive; [place] [address] Business (1) In 6 months 06/10/2015 Comments: Extracted from: Title: Office Visit Note Author: Etienne Delgado MD Date: 12/11/14 Assessment/Plan BPH (benign prostatic hyperplasia) PSA level will be checked. Ordered: Office Visit Level 5 Est 65699 Prostate Specific Antigen Cerumen impaction This will be lavaged out today. Ordered: Office Visit Level 5 Est 46493 Essential hypertension This remains well controlled. Ordered: Office Visit Level 5 Est 24610 Hypercholesterolemia Lab will be scheduled for December. Ordered: Comprehensive Metabolic Panel Creatine Kinase Lipid Panel Office Visit Level 5 Est 05397 TSH 3rd Generation Ischemic heart disease This has been stable recently. His chest pain symptoms seem to be musculoskeletal at this time. Ordered: Office Visit Level 5 Est 26159
--- OUTSIDE RECORDS SUMMARY | 2017-01-09 10:56 | XMS REPORT | Summary of Care ---
Author Author Kosta Armstrong M.D. Organization Unknown Address [address] [place] [address] [place] [address] Phone Unavailable Care Team Providers Care Osteopathy Doctor Name Role Phone Kosta Armstrong M.D. Unavailable Unavailable Juan Fritz Unavailable Unavailable Unavailable Unavailable Functional Status Name Dates Details Functional status health issues are not documented Status: Name Dates Details Cognitive status health issues are not documented Status: Problems Name Dates Details Erectile dysfunction (607.84, N52.9) Status: Active Testalgia (608.9, N50.819) Status: Active Abdominal pain of multiple sites (789.09, R10.9) Status: Active Rising PSA level (790.93, R97.20) Status: Active Enlarged prostate with lower urinary tract symptoms (LUTS) (600.01, N40.1) Status: Active Medications Name Dates Details Co Q10 CAPS Active Aspirin EC 81 MG Oral Tablet Delayed Release * Refills: 0 Active Simvastatin 20 MG Oral Tablet * Refills: 0 Active Metoprolol Tartrate 25 MG Oral Tablet * Refills: 0 Active Tamsulosin HCl - 0.4 MG Oral Capsule TAKE 1 CAPSULE BY MOUTH AT BEDTIME * Quantity: 90 Refills: 3 Kosta Armstrong M.D. * Start Active Nortriptyline HCl - 25 MG Oral Capsule TAKE ONE CAPSULE BY MOUTH EVERY NIGHT AT BEDTIME * Quantity: 90 Refills: 1 Kosta Armstrong M.D. * Start 10-Nov-2016 Active Allergies and Adverse Reactions Name Dates Details No Known Allergies (Allergy) Status: Active Past Medical History Name Dates [...] Dates Details Immunizations not documented Family History Name Dates Details Family history of cardiac disorder (V17.49, Z82.49) Status: Active Name Dates Details Family history of cardiac disorder (V17.49, Z82.49) Status: Active Social History Name Dates Details - Status: Name Dates Details Never smoker Vital Signs Date Test Result Details 10-Nov-2016 14:21 BP Systolic 157 mm[Hg] Status: Comments: Location: ; Position: BP Diastolic 80 mm[Hg] Status: Comments: Location: ; Position: Heart Rate 57 /min Status: Comments: Location: ; Height 69 in Status: Weight 165 lb Status: Body Mass Index Calculated 24.37 kg/m2 Status: Body Surface Area Calculated 1.9 m2 Status: Results Date Description Value Details Results not documented Plan of Care Name Dates Details Planned Observations Planned Goals not documented Planned Encounters Appointment; Provider: Kosta Armstrong M.D. On 11-Nov-2017 14:00 Instructions Name Dates Details Instructions not documented Encounters Appointment; Kosta Armstrong M.D. Encounter Diagnosis: Problem not documented On 12-Nov-2015 15:15
--- OUTSIDE RECORDS SUMMARY | 2017-01-09 10:56 | XMS REPORT | Referral Summary ---
Author Author [facility] Organization [facility] Address Unknown Phone Unavailable Care Team Providers Care Environmental Field Professional Name Role Phone Simon Fritz Primary Care Physician [phone] Encounter Date(s): 07/30/15 - 07/30/15 [facility] [address] [place] [address] [place] [id number] Discharge Diagnosis: Statin intolerance Discharge [...] MOUTH ONCE DAILY, # 90 tabs, eRx: [facility], TAKE ONE TABLET BY MOUTH ONCE DAILY Start Date: 01/19/16 Status: Ordered Nitrostat 0.4 mg sublingual tablet 1 tabs, SubLingual, q5min, as needed for chest pain, # 100 tabs, 0 Refill(s), Pharmacy: [facility], 1 tabs SubLingual q5min,PRN:as needed for chest pain Start Date: 08/05/14 Status: Ordered pravastatin 40 mg oral tablet 40 mg 1 tabs, Oral, Every other day, # 90 tabs, 3 Refill(s), Pharmacy: [facility], 1 tabs Oral Daily [...]
[2017-01-09] MEDS ORDERED: NORT10CA2 PO (11:05)
[2017-01-09] MEDS ORDERED: PRAV40TA3 PO (11:05)
[2017-01-09] MEDS ORDERED: NITR0.4T39 PO (11:05)
--- NOTE | 2017-01-09 11:14 | NUR ---
DR DR TAVERAS AT BEDSIDE.
--- NOTE | 2017-01-09 11:30 | ERPDOC ---
Departure Disposition Decision Date: Jan 09, 2017 Disposition Decision Time: 13:49 Disposition: 01 DISCHARGED HOME, SELF-CARE Impression Impression Impression: Primary Impression: TIA (transient ischemic attack) Severity: Moderate Condition: Improved Seen By: Physician only Referrals: CHING CUMMINS MD (Family) Patient Instructions: Transient Ischemic Attack (ED) Problems/Meds/Labs Reviewed?: Yes Medications reviewed and manag: Yes Additional Instructions: Start Plavix 75 mg daily. Continue with aspirin 81 mg daily. He to follow up with your primary care provider to make sure that Plavix is appropriate free to continue. Follow up care ordered?: Yes Mental Status: Alert, Oriented Scripts Clopidogrel Bisulfate (Plavix) 75 Mg Tablet 1 TAB PO DAILY, #30 TAB Prov: TRINO TAVERAS MD 01/09/17 HPI - CVA/Neuro General Chief Complaint: Dizzy Stated Complaint: LEFT SIDE WEAKNESS, AND LIGHT HEADED Time Seen by Provider: 11:26 HPI - CVA/NEURO Initial Comments 81-year-old male presents with left-sided weakness at approximately 7 AM this morning. Initially had left-sided weakness could not stand without assist, noticed weakness in his left arm as well as left leg. He washed it for a while at home, and started to improve and he decided to come to the ED for evaluation. He takes an aspirin 81 mg daily has had previous TIA. On 2 occasions he's had difficulty speaking for several minutes which then resolved. He is seeing a neurologist for headaches, but not for the TIAs. He does not smoke, does not chew tobacco. Does not drink alcohol. He is on a statin. Had a stent placed in his heart about 2 years ago and was on Plavix for a short period but then was taken off of it. Allergies: Coded Allergies: No Known Drug Allergies (Verified Adverse Reaction, Unknown, 01/09/17) Past History Past Medical History Metabolic: hypercholesterolemia, hypertension Cardiac: CAD, MA, angina Psychological: bipolar Surgical History General: other Cardiac: cardiac cath, cardiac stent Family History Family PMH: FOUND: CHF, MA Vaccines Hx Influenza Vaccination: Yes (fall 2013) Hx Pneumococcal Vaccination: Yes (UNSURE WHEN) Hx Tetanus, Diptheria, Pertuss: No (NO SKIN DISRUPTIONS) Social History Smoking Status: Never smoker Does patient use chewing tobac: No Second Hand Exposure: No Substance Use Type: does not use Alcohol Intake: none Sexuality: female partner Record Review Pertinent history updated: Yes Review of Systems Constitutional Constitutional: see HPI Cardiovascular Cardiac: see HPI Musculoskeletal General: see HPI Neurological General: see HPI All other Systems All Other Systems: Reviewed and Negative Physical Exam General General Nourishment: well nourished, well developed, appears stated age, no acute distress Vitals and Pain First Documented Vital Signs Date Time Temp Pulse Resp B/P Pulse Ox O2 Delivery O2 Flow Rate FiO2 01/09/17 10:50 98.1 66 15 147/80 96 Room Air Weight: Kilograms: 78.200 Height (feet): 5 Height (inches): 9.00 Triage Pain Scale: Normal Exams: Head: Normocephalic w/o trauma Eyes: Pupils are PERRLA w/ EOMI, No scleral icterus, irritation, or foreign bodies noted ENMT: No facial trauma, nasal exudates, pharyngeal erythema, or exudates are noted Neck: Full range of motion, without adenopathy, JVD, bruits or thyromegaly Chest/Resp: Clear all briseno, with good airflow, and symmetry bilaterally CV: Regular rate and rhythm, without murmur or gallop, Pulses 2+ all extremities, capillary refill, <2 seconds all ext., no pedal edema noted Abdomen: Bowel sounds positive, soft, non-tender, non-distended, no hepatosplenomegaly, masses or bruits noted Neurologic: Patient is alert, and oriented, cranial nerves, motor/sensory/ cerebellar, exams w/o gross deficits, to observation Psychiatric: Patient exhibits, appropriate attention, emotion and affect Neurologic (brief) Comments Neurologically, patient does have droop on mouth on left side, however he has states that that has been there previous. Otherwise cranial nerves II through XII are grossly intact, sensory intact in all extremities, patient has very minimal strength difference [id number] in supervisor powdered sugar and in pronation of foot , otherwise strength is equal. The string differential is extremely minimal. DTRs 2+ in all extremities Differential Diagnoses Considering: Thrombotic CVA, Hemorrhagic CVA, Dementia, Drug Overdose, TIA Progress Results/Orders Orders Procedure Category Date Status Time Oxygen Administration EDM 01/09/17 Transmitted 11:33 Iv Lock (Ed Only) EDM 01/09/17 Transmitted 11:33 Bgm (Ed) EDM 01/09/17 Transmitted 11:33 Cbc W/Auto LAB 01/09/17 Complete Diff-Reflex Manual 11:33 Cmp - Comprehensive LAB 01/09/17 Complete Metabolic 11:33 Troponin I W LAB 01/09/17 Complete Hemolysis Index 11:33 INR LAB 01/09/17 Complete 11:33 PTT LAB 01/09/17 Complete 11:33 EKG EKG 01/09/17 Taken 11:33 Ct Head W/O Contrast CT 01/09/17 Resulted 11:33 Normal Saline (Normal PHA 01/09/17 In Process Saline Iv) 11:33 Elevate Hob JING 01/09/17 In Process 11:33 Measure Vital Signs JING 01/09/17 In Process 11:33 Ua, Dip Wreflex LAB 01/09/17 Complete Microsc & Generating Station Mechanic 11:33 Lab Results Laboratory Tests Test 01/09/17 11:51 01/09/17 11:58 01/09/17 11:59 Urine Collection Type Voided-not cc-midstr Urine Color Yellow Urine Turbidity Clear Urine pH 6.5 Urine Specific [place] <=1.005 Urine Protein Negative Urine Glucose (UA) Negative Urine Ketones Negative Urine Blood Negative Urine Nitrite Negative Urine Bilirubin Negative Urine Urobilinogen 0.2EU/DL Urine Leukocyte Esterase Negative Urinalysis Comment Microscopic not ind. Glucometer 71mg/dL White Blood Count 5.8T/MM3 Red Blood Count 4.61M/MM3 Hemoglobin 14.6GM/DL Hematocrit 42.3% Mean Corpuscular Volume 91.8UM3 Mean Corpuscular Hemoglobin 31.7UUG Mean Corpuscular Hemoglobin Concent 34.5GM/DL RDW Standard Deviation 42.8FL Platelet Count 161T/MM3 Mean Platelet Volume 9.4UM3 Immature Granulocyte % (Auto) 0.0% Neutrophils (%) (Auto) 57.4% Lymphocytes (%) (Auto) 27.5% Monocytes (%) (Auto) 6.7% Eosinophils (%) (Auto) 7.9% Basophils (%) (Auto) 0.5% Absolute Immature Granulocyte (auto 0.00T/MM3 Absolute Neutrophils (auto) 3.3T/MM3 Absolute Lymphocytes (auto) 1.6T/MM3 Absolute Monocytes (auto) 0.4T/MM3 Absolute Eosinophils (auto) 0.5T/MM3 Absolute Basophils (auto) 0.0T/MM3 Prothromb Time International Ratio 1.21 Activated Partial Thromboplast Time 27.0SEC Turbidity < 20 Sodium Level 141MEQ/L Potassium Level 4.5MEQ/L Chloride Level 105MEQ/L Carbon Dioxide Level 28MEQ/L Anion Gap 8MEQ/L Blood Urea Nitrogen 23.0MG/DL Creatinine 1.0MG/DL Glomerular Filtration Rate Calc 72 BUN/Creatinine Ratio 23RATIO Glucose Level 96MG/DL Calculated Osmolality 275MOSM/KG Calcium Level 9.4MG/DL Total Bilirubin 1.10MG/DL Icterus Index < 2 Aspartate Amino Transf (AST/SGOT) 27U/L Alanine Aminotransferase (ALT/SGPT) 31U/L Alkaline Phosphatase 61U/L Troponin I < 0.012ng/ml Total Protein 6.9G/DL Albumin 4.0G/DL Globulin 2.9G/DL Albumin/Globulin Ratio 1.4RATIO Chemistry Specimen Hemolysis < 15 Medications Current ED Medications Sodium Chloride (Normal Saline IV) 1,000 ml @ 125 mls/hr Q8H ONCE IV Last administered on 01/09/17t 12:00; Start 01/09/17 at 11:33; Stop 01/09/17 at 19:32 Progress Progress Patient has normal CT brain, normal labs. I do think he had a TIA episode, he has fully recovered while in the ED. As we discussed his history more, he has been having these fairly frequently and been ignoring them. He states that he knew he should've come in and that he had a suspicion that this is what was going on. He only takes 1 aspirin 81 mg daily. Discussed different options of medication, we will start him on Plavix 75 mg daily and have him continue the aspirin. He'll follow-up with his primary care provider to make sure that this is an appropriate medication for him to continue. He is to return to ED immediately if he has any more strokelike symptoms, I did discuss the 3 hour rule. He understands that if he is in within less than 3 hours and we can complete a workup, we may be able to help with a stroke. TRINO TAVERAS MD Jan 09, 2017 11:30
[2017-01-09] MEDS ORDERED: NORMAL SALINE 1,000 ML IV ONE (11:33)
--- NOTE | 2017-01-09 11:42 | NUR ---
CT PT TO CT [facility]IA [facility].
--- NOTE | 2017-01-09 11:47 | NUR ---
CT PT RETURNED.
--- OUTSIDE RECORDS SUMMARY | 2017-01-09 11:52 | XMS REPORT | Continuity of Care Document ---
Author Author [facility] Organization [facility] Address Unknown Phone Unavailable Allergies Active Description Code Type Severity Reaction Onset Reported/Identified Relationship to Patient Clinical Status Yes No Known Allergies NKMA N/A N/A 08/19/2014 Medications Problems Procedures Results Encounters ACCT No. Visit Date/Time Discharge Status Pt. Type Provider Facility Loc./Unit Complaint [id number] 12/26/2013 15:12:00 12/26/2013 23 :59:59 CLS Outpatient [id number] 12/10/2013 11:55:00 12/10/2013 23 :59:59 CLS Outpatient [id number] 11/22/2013 09:59:00 11/22/2013 23 :59:59 CLS Outpatient [id number] 11/13/2013 15:55:00 11/13/2013 23 :59:59 CLS Outpatient [id number] 09/26/2013 13:45:00 09/26/2013 23 :59:59 CLS Outpatient
[2017-01-09 12:08] LABS: BASOPHILS % (AUTO) 0.5 % (0-2); EOSINOPHILS # (AUTO) 0.5 T/MM3 (0-0.5); EOSINOPHILS % (AUTO) 7.9 % (0-4); HCT - HEMATOCRIT 42.3 % (41-53); HGB - HEMOGLOBIN 14.6 GM/DL (13.5-17.5); LYMPHOCYTES # (AUTO) 1.6 T/MM3 (1-4.8); LYMPHOCYTES % (AUTO) 27.5 % (23-45); MEAN CORPUSCULAR HGB 31.7 UUG (26-34); MEAN CORPUSCULAR HGB CONC(MCHC 34.5 GM/DL (31-37); MEAN CORPUSCULAR VOLUME 91.8 UM3 (80-100); MEAN PLATELET VOLUME 9.4 UM3 (9.4-12.4); MONOCYTES # (AUTO) 0.4 T/MM3 (0-0.8); MONOCYTES % (AUTO) 6.7 % (0-9.0); NEUTROPHILS #(AUTO)-ABSOLUTE 3.3 T/MM3 (1.8-7.7); NEUTROPHILS % (AUTO) 57.4 % (33-66); RED BLOOD COUNT 4.61 M/MM3 (4.50-5.90); WBC - WHITE BLOOD COUNT 5.8 T/MM3 (4.5-11.0)
[2017-01-09 12:08] LABS: BLOOD, URINE NEGATIVE (NEGATIVE); COLOR,URINE YELLOW (YELLOW); LEUKOCYTE ESTERASE ,URINE NEGATIVE (NEGATIVE); NITRITE,URINE NEGATIVE (NEGATIVE); UROBILINOGEN,URINE 0.2 EU/DL (NORMAL)
--- NOTE | 2017-01-09 12:09 | NUR ---
MONITOR PLACED, SB.
[2017-01-09 12:15] LABS: INR 1.21 (0.76-1.04); PROTHROMBIN TIME 13.2 SEC (9.31-12.49)
[2017-01-09 12:18] LABS: ALBUMIN/GLOBULIN RATIO 1.4 RATIO (1.1-2.2); ALKALINE PHOSPHATASE 61 U/L (38-126); ALT (SGPT) 31 U/L (21-72); ANION GAP 8 MEQ/L (5-15); AST (SGOT) 27 U/L (17-59); BUN/CREATININE RATIO 23 RATIO (6-26); CALCIUM 9.4 MG/DL (8.4-10.2); CHLORIDE 105 MEQ/L (98-107); CO2 - CARBON DIOXIDE 28 MEQ/L (22-30); GLOMERULAR FILTRATION RATE 72; GLUCOSE 96 MG/DL (75-110); POTASSIUM 4.5 MEQ/L (3.6-5); SODIUM 141 MEQ/L (134-144); TOTAL PROTEIN 6.9 G/DL (6.3-8.2)
--- NOTE | 2017-01-09 12:53 | NUR ---
STATUS PT ALERT, AT BEDSIDE. PT WATCHING BASKETBALL ON TV.
--- NOTE | 2017-01-09 13:08 | DI ---
Indication: ITS.REASON: left-sided weakness PROCEDURE: CT HEAD W/O CONTRAST: Encounter: Initial Comparison: None Technique: Axial CT images through the head were performed without contrast. Iterative Reconstruction dose reducing technique was utilized. FINDINGS: Mild atrophy. The ventricles are of normal size, shape, and contour for the patient's age. There are scattered areas of low attenuation in the white matter which most likely represent changes from chronic microvascular ischemia. The brainstem, cerebellum, and cerebral hemispheres otherwise have a normal morphology and CT attenuation. There is no evidence of midline displacement. No hemorrhage, signs of acute territorial stroke, mass effect, mass lesions, or edema is evident. The visualized portions of the skull base, midface, and calvarium demonstrate no abnormality. The paranasal sinuses are well aerated and free of significant disease. The tympanic and mastoid cavities appear normal. IMPRESSION: No acute intracranial abnormality or hemorrhage. There is a preliminary report by [employer]. .
--- NOTE | 2017-01-09 13:39 | NUR ---
DR DR TAVERAS AT BEDSIDE.
[2017-01-09] MEDS ORDERED: CLOP75TA PO (13:51)
[2017-01-09 14:10] VITALS: BP 137/85; PULSE 51; RESP 16; TEMP 97.7; O2SAT 98
--- NOTE | 2017-01-09 14:23 | NUR ---
DR KIRBY REQUESTS TO TALK TO DR MORRISON, DR TAVERAS AT BEDSIDE.
== END 2017-01-09 14:26 | disposition home or self-care (01) ==
LOC: ED 10:48
DX: G45.9 Transient cerebral ischemic attack, unspecified (principal); I10 Essential (primary) hypertension; I25.10 Atherosclerotic heart disease of native coronary artery without angina pectoris; Z95.5 Presence of coronary angioplasty implant and graft; Z79.82 Long term (current) use of aspirin
CPT/HCPCS: 36415; 70450; 80053; 81003; 82948; 84484; 85025; 85610; 85730; 93005; 96360; 96361; 99284; J7030

== ENCOUNTER 2017-01-14 08:33 | Inpatient (IN) | payer MEDICARE, OTHER ==
[~2017-01-14] VITALS: Ht 175.3 cm; Wt 74.5 kg
[2017-01-14] VITALS (28 sets, daily range): BP systolic 123–176; BP diastolic 73–96; PULSE 51–78; RESP 15–39; TEMP 98.4–98.5; O2SAT 75–97; Ht 175.3 cm; Wt 74.5 kg
[~2017-01-14 08:33] MED LIST changes: +CLOP75TA PO; +NITR0.4T39 PO; +NORT10CA2 PO; +PRAV40TA3 PO
--- OUTSIDE RECORDS SUMMARY | 2017-01-14 08:39 | XMS REPORT | Continuity of Care Document ---
Author Author [facility] Organization [facility] Address Unknown Phone Unavailable Allergies Active Description Code Type Severity Reaction Onset Reported/Identified Relationship to Patient Clinical Status Yes No Known Allergies NKMA N/A N/A 08/19/2014 Medications Problems Procedures Results Encounters ACCT No. Visit Date/Time Discharge Status Pt. Type Provider Facility Loc./Unit Complaint [id number] 12/26/2013 15:12:00 12/26/2013 23 :59:59 CLS Outpatient [id number] 12/10/2013 11:55:00 12/10/2013 23 :59:59 CLS Outpatient [id number] 11/22/2013 09:59:00 11/22/2013 23 :59:59 CLS Outpatient [id number] 11/13/2013 15:55:00 11/13/2013 23 :59:59 CLS Outpatient [id number] 09/26/2013 13:45:00 09/26/2013 23 :59:59 CLS Outpatient
--- OUTSIDE RECORDS SUMMARY | 2017-01-14 08:39 | XMS REPORT | Continuity of Care Document ---
Author Author [facility] Organization [facility] Address Unknown Phone Unavailable Support Name Relationship Address Phone CHING CUMMINS MD Caregiver [address] [place] [address] Unavailable TRINO TAVERAS MD Caregiver [address] [place] [address] Unavailable VIGNESH BARRIENTOS Next Of Kin [address], [place] [id number] Insurance Providers Guarantor Tyler Cedeno Address [address] [place] [address] CP Email DENIED 01-09-17 Payer [employer] Policy Number [id number] Subscriber's Name Tyler Cedeno Relationship 18 Self Group Number PLANE Effective Date 03 Payer Medicare Policy Number [id number] Subscriber's Name Tyler Cedeno Relationship 18 Self Effective Date 02 Advance Directives Directive Response Recorded Date/Time Advanced Directives Type None 01/09/17 10:50am Chief Complaint and Reason for Visit Chief Complaint Dizzy Reason for Visit TIA (transient ischemic attack) Problems Active Problems Medical Problem Onset Date Status Left leg pain Unknown Acute Left leg pain Unknown Acute Left leg swelling 09/06/2014 Acute Pain of left calf 09/06/2014 Acute Past Problems Medical Problem Onset Date TIA (transient ischemic attack) Unknown Medications Current Home Medications Medication Dose Units Route Directions Days Qty Instructions Start Date Aspirin 81 Mg Tablet 81 Mg Oral Twice A Day 09/12/13 Clopidogrel Bisulfate (Plavix) 75 Mg Tablet 1 Tab Oral Daily 30 Tablet 01/09/17 Metoprolol Tartrate 25 Mg Tablet 25 Mg Oral Daily 03/12/10 Nitroglycerin 0.4 Mg Tab.subl 0.4 Mg Oral Every 5 Minutes X 3 as needed for Chest Pain 01/09/17 Nortriptyline Hcl 10 Mg Capsule 10 Mg Oral Bedtime 01/09/17 Pravastatin Sodium 40 Mg Tablet 40 Mg Oral Bedtime 01/09/17 Tamsulosin Hcl 0.4 Mg Cap.er.24h 0.4 Mg Oral Bedtime 09/12/13 Ubidecarenone (Co Q-10) 10 Mg Capsule 10 Mg Oral Daily 09/12/13 Past Home Medications Medication Directions Ordered Status Aspirin (Adult Low Strength Aspirin) 81 Mg Tablet.dr, 81 Mg Oral Bedtime 17/07 Discontinued Niacin (Niaspan) 500 Mg Tablet.sa, 500 Mg Oral Twice A Day 01/14/09 Discontinued Simvastatin 10 Mg Tablet, 1 Tab Oral Daily 03/12/10 Discontinued Sinvestatin , 03/12/10 Discontinued Social History Social History Problem Response Recorded Date/Time Onset Date Status Chewing Tobacco Status No 09/12/2013 10:15am Not Applicable Not Applicable Hx Substance Use No 01/09/2017 11:19am Not Applicable Not Applicable Hx Alcohol Use No 01/09/2017 11:19am Not Applicable Not Applicable Has the pt used tobacco in the last 12 months No 05/17/2015 2:00pm Not Applicable Not Applicable Tobacco Usage none 09/07/2014 12:29am Not Applicable Not Applicable Query Response Start Date Stop Date Smoking Status Never smoker Hospital Discharge Instructions No hospital discharge instructions. Plan of Care Discharge Date 01/09/17 2:26pm Disposition 01 DISCHARGED HOME, SELF-CARE Condition at Discharge Improved Instructions/Education Provided Transient Ischemic Attack (ED) Prescriptions See Medication Section Referrals CHING CUMMINS MD Address: [address] [place] [address] [phone] Additional Instructions/Education Start Plavix 75 mg daily. Continue with aspirin 81 mg daily. He to follow up with your primary care provider to make sure that Plavix is appropriate free to continue. Functional Status No functional status results. Allergies, Adverse Reactions, Alerts Allergen Type Severity Reaction Status Last Updated No Known Drug Allergies Adverse Reaction Unknown Active 01/09/17 Immunizations Query Response on File Recorded Date/Time Hx Influenza Vaccination Y fall 201305/17/15 2:00pm Hx Pneumococcal Vaccination Y UNSURE WHEN 05/17/15 2:00pm Hx Tetanus, Diptheria, Pertussis N NO SKIN DISRUPTIONS 09/06/14 6:42pm Hx Influenza Vaccination Y fall 201305/17/15 2:00pm Hx Tetanus, Diptheria, Pertussis N NO SKIN DISRUPTIONS 09/06/14 6:42pm Vital Signs Acute Vital Signs Vital Response Date/Time Temperature (Fahrenheit) 97.7 deg F (96.8 - 99.1) 01/09/2017 2:10pm Temperature (Calculated Celsius) 36.59957 degrees C (36.0 - 37.3) 01/09/2017 2:10pm Pulse Rate (adult) 51 bpm (60 - 100) 01/09/2017 2:10pm Respiratory Rate 16 breaths/min (10 - 20) 01/09/2017 2:10pm O2 Sat by Pulse Oximetry 98 % (90 - 100) 01/09/2017 2:10pm Blood Pressure 137/85 mm Hg 01/09/2017 2:10pm Height (Feet) 5 feet 01/09/2017 10:50am Height (Inches) 9.00 inches 01/09/2017 10:50am Weight (Kilograms) 78.200 kg 01/09/2017 10:50am Body Mass Index (BMI) 25.0 01/09/2017 10:50am Results Laboratory Results Test Name Result Units Flags Reference Collection Date/Time Result Date/ Time Comments White Blood Count 5.8 T/MM3 4.5-11.0 01/09/2017 11:59am 01/09/2017 12: 08pm Red Blood Count 4.61 M/MM3 4.50-5.90 01/09/2017 11:59am 01/09/2017 12: 08pm Hemoglobin 14.6 GM/DL 13.5-17.5 01/09/2017 11:59am 01/09/2017 12:08pm Hematocrit 42.3 % 41-53 01/09/2017 11:59am 01/09/2017 12:08pm Mean Corpuscular Volume 91.8 UM3 80-100 01/09/2017 11:59am 01/09/2017 12:08pm Mean Corpuscular Hemoglobin 31.7 UUG 26-34 01/09/2017 11:59am 2016 12:08pm Mean Corpuscular Hemoglobin Concent 34.5 GM/DL 31-37 01/09/2017 11:59am 01/09/2017 12:08pm RDW Standard Deviation 42.8 FL 36.9-50.2 01/09/2017 11:59am 01/09/2017 12:08pm Platelet Count 161 T/MM3 130-400 01/09/2017 11:59am 01/09/2017 12:08pm Mean Platelet Volume 9.4 UM3 9.4-12.4 01/09/2017 11:59am 01/09/2017 12: 08pm Neutrophils (%) (Auto) 57.4 % 33-66 01/09/2017 11:59am 01/09/2017 12: 08pm Lymphocytes (%) (Auto) 27.5 % 23-45 01/09/2017 11:59am 01/09/2017 12: 08pm Monocytes (%) (Auto) 6.7 % 0-9.0 01/09/2017 11:59am 01/09/2017 12:08pm Eosinophils (%) (Auto) 7.9 % H 0-4 01/09/2017 11:59am 01/09/2017 12: 08pm Basophils (%) (Auto) 0.5 % 0-2 01/09/2017 11:59am 01/09/2017 12:08pm Immature Granulocyte % (Auto) 0.0 % 0.0-0.5 01/09/2017 11:59am 2016 12:08pm Absolute Neutrophils (auto) 3.3 T/MM3 1.8-7.7 01/09/2017 11:59am 2016 12:08pm Absolute Lymphocytes (auto) 1.6 T/MM3 1-4.8 01/09/2017 11:59am 2016 12:08pm Absolute Monocytes (auto) 0.4 T/MM3 0-0.8 01/09/2017 11:59am 2016 12:08pm Absolute Eosinophils (auto) 0.5 T/MM3 0-0.5 01/09/2017 11:59am 2016 12:08pm Absolute Basophils (auto) 0.0 T/MM3 0-0.2 01/09/2017 11:59am 2016 12:08pm Absolute Immature Granulocyte (auto 0.00 T/MM3 0.00-0.03 01/09/2017 11: 59am 01/09/2017 12:08pm Prothromb Time International Ratio 1.21 H 0.76-1.04 01/09/2017 11:59am 01/09/2017 12:15pm THERAPUTIC RANGE=2.00-3.00 FOR ANTI-THROMBOSIS THERAPUTIC RANGE=2.50-3.50 FOR IMPLANTED VALVE Activated Partial Thromboplast Time 27.0 SEC 24-36 01/09/2017 11:59am 01/09/2017 12:15pm Icterus Index < 2 0-7 01/09/2017 11:59am 01/09/2017 12:18pm Chemistry Specimen Hemolysis < 15 0-25 01/09/2017 11:59am 01/09/2017 12:18pm 0-25: Specimen Exhibited No Hemolysis. Turbidity < 20 0-20 01/09/2017 11:59am 01/09/2017 12:18pm Sodium Level 141 MEQ/L 134-144 01/09/2017 11:59am 01/09/2017 12:18pm Potassium Level 4.5 MEQ/L 3.6-5 01/09/2017 11:59am 01/09/2017 12:18pm Chloride Level 105 MEQ/L 98-107 01/09/2017 11:59am 01/09/2017 12:18pm Carbon Dioxide Level 28 MEQ/L 22-30 01/09/2017 11:59am 01/09/2017 12: 18pm Anion Gap 8 MEQ/L 5-15 01/09/2017 11:59am 01/09/2017 12:18pm Blood Urea Nitrogen 23.0 MG/DL H 9-20 01/09/2017 11:59am 01/09/2017 12: 18pm Creatinine 1.0 MG/DL 0.8-1.5 01/09/2017 11:59am 01/09/2017 12:18pm BUN/Creatinine Ratio 23 RATIO 6-26 01/09/2017 11:59am 01/09/2017 12: 18pm Glomerular Filtration Rate Calc 72 01/09/2017 11:59am 01/09/2017 12 :18pm Glucose Level 96 MG/DL 75-110 01/09/2017 11:59am 01/09/2017 12:18pm Calculated Osmolality 275 MOSM/KG 261-280 01/09/2017 11:59am 2016 12:18pm Calcium Level 9.4 MG/DL 8.4-10.2 01/09/2017 11:59am 01/09/2017 12:18pm Total Bilirubin 1.10 MG/DL 0.20-1.30 01/09/2017 11:59am 01/09/2017 12: 18pm Alkaline Phosphatase 61 U/L 38-126 01/09/2017 11:59am 01/09/2017 12: 18pm Total Protein 6.9 G/DL 6.3-8.2 01/09/2017 11:59am 01/09/2017 12:18pm Albumin 4.0 G/DL 3.5-5.0 01/09/2017 11:59am 01/09/2017 12:18pm Globulin 2.9 G/DL 2.4-3.6 01/09/2017 11:59am 01/09/2017 12:18pm Albumin/Globulin Ratio 1.4 RATIO 1.1-2.2 01/09/2017 11:59am 01/09/2017 12:18pm Aspartate Amino Transf (AST/SGOT) 27 U/L 17-59 01/09/2017 11:59am 01/09 12:18pm Alanine Aminotransferase (ALT/SGPT) 31 U/L 21-72 01/09/2017 11:59am 12:18pm Troponin I < 0.012 ng/ml 0-0.12 01/09/2017 11:5901/09/2017 12:29pm Troponin values with a difference of 55% increase from orginal troponin value represent a true biological DELTA value. (%increase Calc=Orginal Troponin value, divided by subsequent Troponin value, multiplied by 100) Urine Collection Type VOIDED-NOT CC-MIDSTR 01/09/2017 11:51am 01/09 12:08pm Urine Color YELLOW YELLOW 01/09/2017 11:5101/09/2017 12:08pm Urine Turbidity CLEAR CLEAR 01/09/2017 11:5101/09/2017 12:08pm Urine Specific [place] <=1.005 L 1.015-1.025 01/09/2017 11:512016 12:08pm Urine pH 6.5 5.0-8.0 01/09/2017 11:5101/09/2017 12:08pm Urine Leukocyte Esterase NEGATIVE NEGATIVE 01/09/2017 11:512016 12:08pm Urine Nitrite NEGATIVE NEGATIVE 01/09/2017 11:5101/09/2017 12: 08pm Urine Protein NEGATIVE NEGATIVE 01/09/2017 11:5101/09/2017 12: 08pm Urine Glucose (UA) NEGATIVE NEGATIVE 01/09/2017 11:51am 01/09/2017 12 :08pm Urine Ketones NEGATIVE NEGATIVE 01/09/2017 11:51am 01/09/2017 12: 08pm Urine Urobilinogen 0.2 EU/DL NORMAL 01/09/2017 11:51am 01/09/2017 12: 08pm Urine Bilirubin NEGATIVE NEGATIVE 01/09/2017 11:51am 01/09/2017 12: 08pm Urine Blood NEGATIVE NEGATIVE 01/09/2017 11:51am 01/09/2017 12:08pm Urinalysis Comment MICROSCOPIC NOT IND. 01/09/2017 11:51am 2016 12:08pm Glucometer 71 mg/dL L 75-110 01/09/2017 11:58am 01/09/2017 12:01pm Name: TYLER CEDENO Unit #: [id number] : 1935 Sex: M Admit Date: Loc / Svc: ED Discharge Date: DIAGNOSTIC IMAGING REPORT Report #: [id number] [facility] Oliver MISAEL Indication: ITS.REASON: left-sided weakness PROCEDURE: CT HEAD W/O CONTRAST: Encounter: Initial Comparison: None Technique: Axial CT images through the head were performed without contrast. Iterative Reconstruction dose reducing technique was utilized. FINDINGS: Mild atrophy. The ventricles are of normal size, shape, and contour for the patient's age. There are scattered areas of low attenuation in the white matter which most likely represent changes from chronic microvascular ischemia. The brainstem, cerebellum, and cerebral hemispheres otherwise have a normal morphology and CT attenuation. There is no evidence of midline displacement. No hemorrhage, signs of acute territorial stroke, mass effect, mass lesions, or edema is evident. The visualized portions of the skull base, midface, and calvarium demonstrate no abnormality. The paranasal sinuses are well aerated and free of significant disease. The tympanic and mastoid cavities appear normal. IMPRESSION: No acute intracranial abnormality or hemorrhage. There is a preliminary report by [employer]. . Procedures No known history of procedures. Encounters Encounter Location Arrival/Admit Date Discharge/Depart Date Attending Provider Departed Emergency Room [facility] 01/09/17 10:48am 01/09/17 2: 26pm TRINO TAVERAS MD Recent Diagnosis
--- NOTE | 2017-01-14 08:54 | NUR ---
IVL IVL STARTED AND BLOOD COLLECTED AND GIVEN TO LAB
--- NOTE | 2017-01-14 08:55 | NUR ---
EKG EKG TAKEN AND GIVEN TO DR GRAY
--- NOTE | 2017-01-14 09:00 | NUR ---
RADIOLOGY PT TO RADIOLOGY PER CART
[2017-01-14 09:03] LABS: BASOPHILS % (AUTO) 0.7 % (0-2); EOSINOPHILS # (AUTO) 0.5 T/MM3 (0-0.5); EOSINOPHILS % (AUTO) 8.1 % (0-4); HCT - HEMATOCRIT 42.8 % (41-53); HGB - HEMOGLOBIN 14.8 GM/DL (13.5-17.5); IMMATURE GRANULOCYTE # (AUTO) 0.01 T/MM3 (0.00-0.03); IMMATURE GRANULOCYTE % (AUTO) 0.2 % (0.0-0.5); LYMPHOCYTES # (AUTO) 1.4 T/MM3 (1-4.8); LYMPHOCYTES % (AUTO) 23.9 % (23-45); MEAN CORPUSCULAR HGB 31.6 UUG (26-34); MEAN CORPUSCULAR HGB CONC(MCHC 34.6 GM/DL (31-37); MEAN CORPUSCULAR VOLUME 91.5 UM3 (80-100); MEAN PLATELET VOLUME 9.4 UM3 (9.4-12.4); MONOCYTES # (AUTO) 0.3 T/MM3 (0-0.8); MONOCYTES % (AUTO) 5.4 % (0-9.0); NEUTROPHILS #(AUTO)-ABSOLUTE 3.6 T/MM3 (1.8-7.7); NEUTROPHILS % (AUTO) 61.7 % (33-66); RED BLOOD COUNT 4.68 M/MM3 (4.50-5.90); WBC - WHITE BLOOD COUNT 5.8 T/MM3 (4.5-11.0)
--- OUTSIDE RECORDS SUMMARY | 2017-01-14 09:04 | XMS REPORT | Continuity of Care Document ---
Author Author [facility] Organization [facility] Address Unknown Phone Unavailable Allergies Active Description Code Type Severity Reaction Onset Reported/Identified Relationship to Patient Clinical Status Yes No Known Allergies NKMA N/A N/A 08/19/2014 Medications Problems Procedures Results Encounters ACCT No. Visit Date/Time Discharge Status Pt. Type Provider Facility Loc./Unit Complaint [id number] 12/26/2013 15:12:00 12/26/2013 23 :59:59 CLS Outpatient [id number] 12/10/2013 11:55:00 12/10/2013 23 :59:59 CLS Outpatient [id number] 11/22/2013 09:59:00 11/22/2013 23 :59:59 CLS Outpatient [id number] 11/13/2013 15:55:00 11/13/2013 23 :59:59 CLS Outpatient [id number] 09/26/2013 13:45:00 09/26/2013 23 :59:59 CLS Outpatient
--- NOTE | 2017-01-14 09:10 | NUR ---
RADIOLOGY PT FROM RADIOLOGY PER CART
[2017-01-14 09:11] LABS: INR 1.2 (0.76-1.04); PROTHROMBIN TIME 13.1 SEC (9.31-12.49); PTT 25.9 SEC (24-36)
[2017-01-14 09:13] LABS: ALBUMIN 3.8 G/DL (3.5-5.0); ALBUMIN/GLOBULIN RATIO 1.4 RATIO (1.1-2.2); ALKALINE PHOSPHATASE 60 U/L (38-126); ALT (SGPT) 34 U/L (21-72); ANION GAP 8 MEQ/L (5-15); AST (SGOT) 23 U/L (17-59); BUN/CREATININE RATIO 17 RATIO (6-26); CALCIUM 9.3 MG/DL (8.4-10.2); CHLORIDE 105 MEQ/L (98-107); CO2 - CARBON DIOXIDE 28 MEQ/L (22-30); CREATININE 1.1 MG/DL (0.8-1.5); GLOMERULAR FILTRATION RATE 64; GLUCOSE 130 MG/DL (75-110); POTASSIUM 4.3 MEQ/L (3.6-5); SODIUM 141 MEQ/L (134-144); TOTAL PROTEIN 6.6 G/DL (6.3-8.2)
--- NOTE | 2017-01-14 09:14 | DI ---
Indication: ITS.REASON: L arm weakness PROCEDURE: CT HEAD W/O CONTRAST: Encounter: Initial Comparison: Head CT dated January 09, 2017 and brain MRI dated December 02, 2015 Technique: Axial CT images through the head were performed without contrast. Iterative Reconstruction dose reducing technique was utilized. FINDINGS: The ventricles are stable. There are scattered areas of low attenuation in the white matter which most likely represent changes from chronic microvascular ischemia. The brainstem, cerebellum, and cerebral hemispheres otherwise have a normal morphology and CT attenuation. There is no evidence of midline displacement. No hemorrhage, signs of acute territorial stroke, mass effect, mass lesions, or edema is evident. The visualized portions of the skull base, midface, and calvarium demonstrate no abnormality. Mild sinus disease. The tympanic and mastoid cavities appear normal. IMPRESSION: No acute intracranial hemorrhage or extended infarct signs. .
--- NOTE | 2017-01-14 09:15 | NUR ---
PROVIDER DR GRAY TALKING TO DR ARNOLD
--- NOTE | 2017-01-14 09:28 | DI ---
Indication: ITS.REASON: Left arm weakness PROCEDURE: CHEST 1 VIEW: Encounter: Initial Comparison: October 11, 2011 FINDINGS: The lungs are clear. There is no abnormal airspace opacity, pleural effusion or pneumothorax identified. The heart size, pulmonary vasculature and mediastinum are within normal limits. No significant skeletal abnormality is seen. IMPRESSION: No acute cardiopulmonary abnormality. .
--- NOTE | 2017-01-14 09:30 | NUR ---
ELIMINATION PT VOIDED 400CC CLEAR YELLOW URINE
--- NOTE | 2017-01-14 09:35 | NUR ---
NEURO TELE NEURO ON WITH PT
[2017-01-14 09:42] LABS: BLOOD, URINE NEGATIVE (NEGATIVE); COLOR,URINE YELLOW (YELLOW); LEUKOCYTE ESTERASE ,URINE NEGATIVE (NEGATIVE); NITRITE,URINE NEGATIVE (NEGATIVE); UROBILINOGEN,URINE 0.2 EU/DL (NORMAL)
[2017-01-14] MEDS ORDERED: CLOP75TA33 PO (09:54)
[2017-01-14] MEDS ORDERED: UBID200C15 PO (09:54)
--- NOTE | 2017-01-14 09:59 | NEUROPD ---
Telestroke Consultation Note Patient Information Last Name:Pao First Name:Bryn Location: [facility] Arrival Date/Time: Age:81 Weight:77.100 Gender:male Mode of Arrival: Clinical Presentation Vital Signs/Laboratory Laboratory Tests Test 01/14/17 08:58 01/14/17 08:59 01/14/17 09:33 White Blood Count 5.8T/MM3 Red Blood Count 4.68M/MM3 Hemoglobin 14.8GM/DL Hematocrit 42.8% Mean Corpuscular Volume 91.5UM3 Mean Corpuscular Hemoglobin 31.6UUG Mean Corpuscular Hemoglobin Concent 34.6GM/DL RDW Standard Deviation 42.5FL Platelet Count 162T/MM3 Mean Platelet Volume 9.4UM3 Immature Granulocyte % (Auto) 0.2% Neutrophils (%) (Auto) 61.7% Lymphocytes (%) (Auto) 23.9% Monocytes (%) (Auto) 5.4% Eosinophils (%) (Auto) 8.1% Basophils (%) (Auto) 0.7% Absolute Immature Granulocyte (auto 0.01T/MM3 Absolute Neutrophils (auto) 3.6T/MM3 Absolute Lymphocytes (auto) 1.4T/MM3 Absolute Monocytes (auto) 0.3T/MM3 Absolute Eosinophils (auto) 0.5T/MM3 Absolute Basophils (auto) 0.0T/MM3 Prothromb Time International Ratio 1.20 Activated Partial Thromboplast Time 25.9SEC Turbidity < 20 Sodium Level 141MEQ/L Potassium Level 4.3MEQ/L Chloride Level 105MEQ/L Carbon Dioxide Level 28MEQ/L Anion Gap 8MEQ/L Blood Urea Nitrogen 19.0MG/DL Creatinine 1.1MG/DL Glomerular Filtration Rate Calc 64 BUN/Creatinine Ratio 17RATIO Glucose Level 130MG/DL Calculated Osmolality 275MOSM/KG Calcium Level 9.3MG/DL Total Bilirubin 1.10MG/DL Icterus Index < 2 Aspartate Amino Transf (AST/SGOT) 23U/L Alanine Aminotransferase (ALT/SGPT) 34U/L Alkaline Phosphatase 60U/L Troponin I < 0.012ng/ml Total Protein 6.6G/DL Albumin 3.8G/DL Globulin 2.8G/DL Albumin/Globulin Ratio 1.4RATIO Chemistry Specimen Hemolysis < 15 Glucometer 131mg/dL Urine Collection Type Cleancatch-midstream Urine Color Yellow Urine Turbidity Clear Urine pH 5.5 Urine Specific [place] <=1.005 Urine Protein Negative Urine Glucose (UA) Negative Urine Ketones Negative Urine Blood Negative Urine Nitrite Negative Urine Bilirubin Negative Urine Urobilinogen 0.2EU/DL Urine Leukocyte Esterase Negative Urinalysis Comment Microscopic not ind. Vital Signs Date Time Temp Pulse Resp B/P Pulse Ox O2 Delivery O2 Flow Rate FiO2 01/14/17 08:37 97.4 60 18 144/79 96 Room Air Patient History Scheduled Aspirin (Aspirin) 81 Mg Tablet, 81 MG PO DAILY, (Reported) Clopidogrel Bisulfate (Clopidogrel) 75 Mg Tablet, 75 MG PO DAILY, (Reported) Metoprolol Tartrate (Metoprolol Tartrate) 25 Mg Tablet, 25 MG PO DAILY, ( Reported) Nortriptyline HCl (Nortriptyline HCl) 10 Mg Capsule, 10 MG PO HS, (Reported) Pravastatin Sodium (Pravastatin Sodium) 40 Mg Tablet, 40 MG PO HS, (Reported) Tamsulosin Hcl (Tamsulosin Hcl) 0.4 Mg Cap.er.24h, 0.4 MG PO HS, (Reported) Ubidecarenone (Co Q-10) 200 Mg Capsule, 200 MG PO DAILY, (Reported) Scheduled PRN Nitroglycerin (Nitroglycerin) 0.4 Mg Tab.subl, 0.4 MG PO Q5MIN PRN for CHEST PAIN, (Reported) Allergies: Coded Allergies: No Known Drug Allergies (Verified Adverse Reaction, Unknown, 01/14/17) Does patient use chewing tobac: No Second Hand Exposure: No Substance Use Type: does not use Alcohol Intake: none Sexuality: female partner HPI Consult Start Time: 09:27 History Reviewed: Yes History of Present Illness 81yo M presents with acute onset left arm weakness, dizziness, and mild headache. Patient reports that he noticed the symptoms when he went to get out of bed. He noticed dizziness, described as lightheadedness, and left arm pain and weakness. Patient immediately sat back down. Patient reports the left arm weakness has now improved. Patient also came to the ED on Tuesday and was diagnosed with a TIA. Patient reports that with that episode he felt very dizzy/lightheaded and felt like he was going to fall. Patient reports that he has been having lightheadedness whenever he gets up for the last couple months. ROS Neurological: see HPI Neuro Scores-NIHSS Level of Consciousness: 0 Level of Consciousness: 0 Best Gaze: 0 Visual: 0 Facial Palsy: 0 (please note patient has a normal asymmetry to his mouth, and mild decrease in nasolabial fold on the left was confirmed by his as being normal for this patient.) Motor Arm Left: 0 Motor Arm Right: 0 Motor Leg Left: 0 Motor Leg Right: 0 Limb Ataxia: 0 Sensory: 0 Best Language: 0 Dysarthria: 0 Extinction and Inattention: 0 t-PA Imaging Reviewed: Yes Time Imaging Reviewed: 10:10 Imaging Findings No acute changes t-PA Recommended?: No Recommendation Date: Jan 14, 2017 Recommendation Time: 10:10 Reason for not recommending symptoms resolving Recommendation Impression: (1) Transient cerebral ischemic attack, unspecified Recommendation 81yo M presents with acute onset dizziness and left arm weakness, now resolving. Neurological exam is notable for decreased sensation to pin in a stocking distribution in his bilateral lower extremities. I believe patient has had a transient ischemic attack. I recommend workup to include MRI Brain without gadolinium and CTA of the head and neck. Given his bilateral leg numbness with his ongoing dizziness on standing, I suspect orthostatic hypotension and neuropathy as well. I recommend checking orthostatics as well as testing for diabetes,as this is the most common cause of neuropathy. Based on the results of these tests, further workup for possible autonomic neuropathy could be considered, including consideration to discontinue metoprolol. LANDON HAIRSTON MD Jan 14, 2017 09:59
--- NOTE | 2017-01-14 10:00 | NUR ---
STATUS [facility] IN CONDITION[facility]
--- NOTE | 2017-01-14 10:39 | ERPDOC ---
Departure Disposition Decision Date: Jan 14, 2017 Disposition Decision Time: 10:35 Disposition: 02 TO [facility] Impression Impression Impression: Primary Impression: Left arm weakness Severity: Mild Condition: Improved Seen By: Physician only Referrals: CHING CUMMINS MD (Family) Problems/Meds/Labs Reviewed?: Yes Medications reviewed and manag: Yes Follow up care ordered?: Yes Mental Status: Alert, Oriented HPI - General Medical General Chief Complaint: Dizzy Stated Complaint: LIGHT HEADED, L UPPER ARM Weakness Time Seen by Provider: 08:50 Source: patient Exam Limitations: no limitations HPI - General Medical Initial Comments 81-year-old male presents to the emergency department with a chief complaint of feeling lightheaded and left upper extremity weakness. Patient noted onset of symptoms approximately 07:00 this morning upon awakening from sleep. Patient denies any pain or discomfort. Patient denies any other complaints or associated symptoms. Patient was at home when the symptoms began. Patient feels like his symptoms are improving without intervention. Patient denies any other complaints or associated symptoms. The lightheadedness is at baseline has been present for the past 2 weeks per patient. Patient does not note any exacerbating or remitting factors. Allergies: Coded Allergies: No Known Drug Allergies (Verified Adverse Reaction, Unknown, 01/14/17) Past History Past Medical History Metabolic: hypercholesterolemia, hypertension Cardiac: CAD, [place], angina Psychological: bipolar Surgical History General: other Cardiac: cardiac cath, cardiac stent Family History Family PMH: FOUND: CHF, [place] Vaccines Hx Influenza Vaccination: Yes (fall 2013) Hx Pneumococcal Vaccination: Yes (UNSURE WHEN) Hx Tetanus, Diptheria, Pertuss: No (NO SKIN DISRUPTIONS) Social History Smoking Status: Never smoker Does patient use chewing tobac: No Second Hand Exposure: No Substance Use Type: does not use Alcohol Intake: none Sexuality: female partner Review of Systems Constitutional Constitutional: DENIES: chills, fever Eyes General: DENIES: erythema, exudate Lids/Accessories: DENIES: erythema, swelling Vision: DENIES: acuity, blurring ENMT Ears: DENIES: drainage, erythema Hearing: DENIES: hearing loss Balance: DENIES: ataxia, falling to one side Sinuses: DENIES: congestion, pain Nose: DENIES: nosebleeds, pain Mouth/Throat: DENIES: painful swallowing, sore throat Teeth: DENIES: pain Jaw: DENIES: pain Cardiovascular Cardiac: DENIES: chest pain, dyspnea on exertion Rhythm/Rate: DENIES: irregular beat, palpitations Vascular: DENIES: pedal edema, unilateral swelling Pulmonary Respiratory: DENIES: cough, dyspnea, pleuritic chest pain, sputum GI Upper Abdomen: DENIES: nausea, pain, vomiting Lower Abdomen: DENIES: diarrhea, pain General: DENIES: dysuria, pain Musculoskeletal General: DENIES: pain, tenderness Integumentary Skin: DENIES: itching, rash Neurological General: weakness (left upper extremity weakness), DENIES: headache, numbness Psychiatric Psychiatric: DENIES: emotional instability, suicidal ideation/attempt Endocrine Endocrine: DENIES: polydipsia, polyphagia Hematologic/Lymphatic Hematologic/Lymphatic: DENIES: frequent nosebleeds, lymphadenopathy Allergic/Immunological Allergic/Immunoligical: DENIES: allergic reactions, hives Physical Exam General General Nourishment: well nourished, well developed, appears stated age, no acute distress, adult General Body Habitus: well groomed Vitals and Pain First Documented Vital Signs Date Time Temp Pulse Resp B/P Pulse Ox O2 Delivery O2 Flow Rate FiO2 01/14/17 08:37 97.4 60 18 144/79 96 Room Air Weight: Kilograms: 77.100 Height (feet): 5 Height (inches): 9.00 Triage Pain Scale: RN VS reviewed by Provider: Yes Normal Exams: Head: Normocephalic w/o trauma Eyes: Pupils are PERRLA w/ EOMI, No scleral icterus, irritation, or foreign bodies noted ENMT: No facial trauma, nasal exudates, pharyngeal erythema, or exudates are noted Dental: No fractured, loose, or missing teeth noted Neck: Full range of motion, without adenopathy, JVD, bruits or thyromegaly Chest/Resp: Clear all briseno, with good airflow, and symmetry bilaterally CV: Regular rate and rhythm, without murmur or gallop, Pulses 2+ all extremities, capillary refill, <2 seconds all ext., no pedal edema noted Abdomen: Bowel sounds positive, soft, non-tender, non-distended, no hepatosplenomegaly, masses or bruits noted Lymphatic: No lymphadenopathy, or lymphedema noted Musculoskeletal: No tenderness, or deformity noted, good range of motion, all extremities Integumentary: No rashes, hives, or bruising noted, hair and nails, without abnormality Neurologic: Patient is alert, and oriented, cranial nerves, motor/sensory/ cerebellar, exams w/o gross deficits, to observation Psychiatric: Patient exhibits, appropriate attention, emotion and affect Neurologic (brief) Comments Alert and oriented x 4. CN 2-12 intact. sensation intact. strength normal. gait normal. Normal motor. Normal coordination. Reflexes 2/4 in all extremities. Normal Speech. Absent Babinski bilaterally. No focal neurologic deficit noted. Differential Diagnoses Considering: CVA, Metabolic, TIA, UTI Progress Results/Orders Orders Procedure Category Date Status Time Cbc W/Auto LAB 01/14/17 Complete Diff-Reflex Manual Cmp - Comprehensive LAB 01/14/17 Complete Metabolic Troponin I W LAB 01/14/17 Complete Hemolysis Index EKG EKG 01/14/17 Taken Chest 1 View RAD 01/14/17 Resulted 08:50 INR LAB 01/14/17 Complete PTT LAB 01/14/17 Complete Ua, Dip Wreflex LAB 01/14/17 Complete Microsc & Cobbler Sole 08:50 Ct Head W/O Contrast CT 01/14/17 Resulted 08:50 EKG EKG 01/14/17 Taken Aspirin (Asa) PHA 01/15/17 In Process 09:00 Normal Saline (Ns) PHA 01/14/17 [address] 10:45 [address] In Facility: ED ADM 01/14/17 Transmitted 10:36 Lab Results Laboratory Tests Test 01/14/17 08:58 01/14/17 08:59 01/14/17 09:33 White Blood Count 5.8T/MM3 Red Blood Count 4.68M/MM3 Hemoglobin 14.8GM/DL Hematocrit 42.8% Mean Corpuscular Volume 91.5UM3 Mean Corpuscular Hemoglobin 31.6UUG Mean Corpuscular Hemoglobin Concent 34.6GM/DL RDW Standard Deviation 42.5FL Platelet Count 162T/MM3 Mean Platelet Volume 9.4UM3 Immature Granulocyte % (Auto) 0.2% Neutrophils (%) (Auto) 61.7% Lymphocytes (%) (Auto) 23.9% Monocytes (%) (Auto) 5.4% Eosinophils (%) (Auto) 8.1% Basophils (%) (Auto) 0.7% Absolute Immature Granulocyte (auto 0.01T/MM3 Absolute Neutrophils (auto) 3.6T/MM3 Absolute Lymphocytes (auto) 1.4T/MM3 Absolute Monocytes (auto) 0.3T/MM3 Absolute Eosinophils (auto) 0.5T/MM3 Absolute Basophils (auto) 0.0T/MM3 Prothromb Time International Ratio 1.20 Activated Partial Thromboplast Time 25.9SEC Turbidity < 20 Sodium Level 141MEQ/L Potassium Level 4.3MEQ/L Chloride Level 105MEQ/L Carbon Dioxide Level 28MEQ/L Anion Gap 8MEQ/L Blood Urea Nitrogen 19.0MG/DL Creatinine 1.1MG/DL Glomerular Filtration Rate Calc 64 BUN/Creatinine Ratio 17RATIO Glucose Level 130MG/DL Calculated Osmolality 275MOSM/KG Calcium Level 9.3MG/DL Total Bilirubin 1.10MG/DL Icterus Index < 2 Aspartate Amino Transf (AST/SGOT) 23U/L Alanine Aminotransferase (ALT/SGPT) 34U/L Alkaline Phosphatase 60U/L Troponin I < 0.012ng/ml Total Protein 6.6G/DL Albumin 3.8G/DL Globulin 2.8G/DL Albumin/Globulin Ratio 1.4RATIO Triglycerides Level Pending Cholesterol Level Pending LDL Cholesterol, Calculated Pending VLDL Cholesterol Pending HDL Cholesterol Direct Pending Cholesterol/HDL Ratio Pending Chemistry Specimen Hemolysis < 15 Glucometer 131mg/dL Urine Collection Type Cleancatch-midstream Urine Color Yellow Urine Turbidity Clear Urine pH 5.5 Urine Specific [place] <=1.005 Urine Protein Negative Urine Glucose (UA) Negative Urine Ketones Negative Urine Blood Negative Urine Nitrite Negative Urine Bilirubin Negative Urine Urobilinogen 0.2EU/DL Urine Leukocyte Esterase Negative Urinalysis Comment Microscopic not ind. Progress Progress Labs/imaging were discussed in detail with the patient and family and questions are answered. Patient is given gentle IV hydration. Patient is given 324 mg of aspirin by mouth 1 in the emergency department after a negative CT head is obtained. Patient's initial EKG is reviewed in detail by Dr. Charles Flynn who states that the EKG does not meet STEMI criteria. Patient's EKG does not have any reciprocal changes. Patient does not currently have any chest pain, shortness of breath, or left arm pain. His only complaint is left upper extremity weakness. Repeat EKG shows no STEMI as well. Dr. Flynn will see the patient in consultation. Recommendations from cardiology are followed. Patient is discussed with Dr. Dean and admitted to his service in improved condition. Patient was evaluated by tele-neurology in the emergency department and recommendations are followed. Patient is in agreement with the current plan of management. Patient is admitted to the hospital in improved condition. Patient is not a TPA candidate due to a low NIH and unknown time of onset of symptoms. Last known normal was unknown as well. Patient is asymptomatic at the time of admission to the hospital. EKG EKG : Rate: <60 Rhythm: sinus QRS: RBBB Intervals: [address]/T: non-specific changes Interpreted by: signing physician EKG Comments EKG reviewed with Dr. Scott Flynn and does not meet STEMI criteria. Patient does not have any cp / sob / L arm pain. No reciprocal changes. EKG #2 - Sinus Bradycardia. 55 bpm. No stemi. Xray Xray : Xray: CXR Portable Interpretation: Normal, Interpreted by Me, Reviewed Written Report CT Date CT Interpreted for [place]: Jan 14, [address] Interpreted for Stroke: 09:11 CT : CT: Head no contrast Interpretation: Normal, Reviewed Written Report TONYA GRAY DO Jan 14, 2017 10:39
[2017-01-14] MEDS ORDERED: NORMAL SALINE 500 ML IV ONE (10:45)
--- OUTSIDE RECORDS SUMMARY | 2017-01-14 10:53 | XMS REPORT | Continuity of Care Document ---
Author Author [facility] Organization [facility] Address Unknown Phone Unavailable Allergies Active Description Code Type Severity Reaction Onset Reported/Identified Relationship to Patient Clinical Status Yes No Known Allergies NKMA N/A N/A 08/19/2014 Medications Problems Procedures Results Encounters ACCT No. Visit Date/Time Discharge Status Pt. Type Provider Facility Loc./Unit Complaint [id number] 12/26/2013 15:12:00 12/26/2013 23 :59:59 CLS Outpatient [id number] 12/10/2013 11:55:00 12/10/2013 23 :59:59 CLS Outpatient [id number] 11/22/2013 09:59:00 11/22/2013 23 :59:59 CLS Outpatient [id number] 11/13/2013 15:55:00 11/13/2013 23 :59:59 CLS Outpatient [id number] 09/26/2013 13:45:00 09/26/2013 23 :59:59 CLS Outpatient
--- NOTE | 2017-01-14 11:00 | NUR ---
STATUS PT RESTING AT THIS TIME WITHOUT COMPLAINTS. NO FURTHER ARM PAIN COMPLAINTS
[2017-01-14] MEDS ORDERED: IOHEXOL 350 MG/ML 75ml INJECTION ONE (11:17)
[2017-01-14] MEDS ORDERED: NORMAL SALINE 100 ML ONE (11:17)
[2017-01-14] MEDS ORDERED: SALINE FLUSH 10ml SYRINGE ONE (11:17)
--- NOTE | 2017-01-14 11:20 | NUR ---
RADIOLOGY PT TO RADIOLOGY PER CART AND THEN RADIOLOGY WILL TAKE PT TO CCU
--- NOTE | 2017-01-14 12:10 | DI ---
Indication: ITS.REASON: dizziness PROCEDURE: CTA NECK head and W/WO CONTRAST: Encounter: Initial Comparison: Head CT from earlier today Technique: CT angiography of the head and neck was performed from the aortic arch through the head both before and after the administration of intravenous contrast. Coronal and sagittal reconstructed images were created and reviewed along with three-dimensional surface shaded volume rendered imaging of the arterial vasculature which was created on a dedicated workstation by the technologist under the direction of the interpreting radiologist. Automated Exposure Control and Iterative Reconstruction dose reducing techniques were utilized. Contrast: Omnipaque 350 74mL Findings: CTA neck with and without contrast: Noncontrast images show large atherosclerotic plaques in both carotid bulbs. Postcontrast imaging shows paraseptal emphysema with unfortunately severe motion artifact at the carotid bifurcation level making evaluation of that region nondiagnostic. This is the area of interest where the atherosclerotic plaque is present but a precise measurement of stenosis using NASCET criteria cannot be performed due to the severe motion. There is at least a mild stenosis present. The remaining internal carotid arteries are patent. The vertebral arteries are patent bilaterally. No evidence of vascular aneurysm or dissection. CTA head with and without contrast: There is a mild intracranial stenosis in the cavernous portion of both ICAs. There is approximately 75% stenosis in the right vertebral artery at the level of the foramen magnum. The ACAs are normal. Middle cerebral arteries also appear normal bilaterally. No intracranial aneurysm. Basilar artery is normal. Posterior cerebral arteries are normal. No evidence of an arterial vascular malformation. Impression: CT angiogram of the neck: Severe motion artifact precludes adequate evaluation of the carotid bifurcations and a stenosis measurement cannot be calculated using the NASCET criteria. There appears to be at least a mild narrowing present. Recommend correlation with carotid Doppler exam. CT angiogram of the head: Approximately 75% stenosis of the right vertebral artery at the level of the foramen magnum. Mild stenosis of both cavernous ICAs. No intracranial aneurysm or occlusion. .
--- NOTE | 2017-01-14 12:10 | HPPDOC ---
HARISH WELCH [facility] [employer] 01/14/17 1210: HPI - Adult Date DATE: 01/14/17 TIME: 12:08 General Chief Complaint: Dizziness History of Present Illness Patient is a pleasant 81 yr old male who has been having intermittent dizziness for the past month. He was seen in the ER on 01/09/17 and was diagnosed with a TIA and was discharged. Today , although he continues to have intermittent dizziness he had pain in the left arm briefly. The left-sided arm pain was a new symptom today and this was concerning and so he presented to the emergency room for further evaluation and treatment. Patient was afebrile at 97.4, pulse 55-60, respiration rate 18, blood pressure 144/79, room air saturations 96%. The WBC count was found to be normal 5.8, hemoglobin 14.8, hematocrit 42.8, platelet count 162. Sodium is 141, potassium 4.3, BUN 19, creatinine 1.1, glucose 130. Troponin was undetectable, less than 0.012. INR 1.2. Urinalysis was unremarkable. CT scan of the head was obtained . No acute intracranial infarct or acute hemorrhage. Chest x-ray was performed which did not reveal any cardiopulmonary disease. EKG was obtained and discussed with cardiology, it showed sinus rhythm with right bundle branch block. Tele- Neurology evaluation was consulted in the emergency room and TPA was not recommended. Given concern for ongoing symptoms as well as acute left arm discomfort. The hospitalist services were contacted and accepted patient for outpatient observation for further evaluation and treatment. It is expected that his stay will be less than 2 overnights. Patient is seen and examined initially, he is alert and oriented and currently without symptoms. He does report having dizziness is intermittent for the last several weeks. He notes that is sometimes worse with position changes, for example when sitting in gnosticist and he stands to seeing he becomes lightheaded. Symptoms resolved within several minutes. He does have a known history of cardiac disease and has had angioplasty by Dr Bernal. 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 Current Medications Home Meds Reported Medications Ubidecarenone (Co Q-10) 200 Mg Capsule, 200 MG PO DAILY 01/14/17 Clopidogrel Bisulfate (Clopidogrel) 75 Mg Tablet, 75 MG PO DAILY 01/14/17 Nitroglycerin (Nitroglycerin) 0.4 Mg Tab.subl, 0.4 MG PO Q5MIN Y for CHEST PAIN 01/09/17 Nortriptyline HCl (Nortriptyline HCl) 10 Mg Capsule, 10 MG PO HS 01/09/17 Pravastatin Sodium (Pravastatin Sodium) 40 Mg Tablet, 40 MG PO HS 01/09/17 Aspirin (Aspirin) 81 Mg Tablet, 81 MG PO DAILY 09/12/13 Tamsulosin Hcl (Tamsulosin Hcl) 0.4 Mg Cap.er.24h, 0.4 MG PO HS 09/12/13 Metoprolol Tartrate (Metoprolol Tartrate) 25 Mg Tablet, 25 MG PO DAILY 03/12/10 Allergies: Coded Allergies: No Known Drug Allergies (Verified Adverse Reaction, Unknown, 01/14/17) Family History Family History: Father-stroke, [place] Mother-[place] 3 sisters alive and well Social History Smoking Status: Never smoker Does patient use chewing tobac: No Second Hand Exposure: No Substance Use Type: does not use Alcohol Intake: none Sexuality: female partner Housing: house Household Members: spouse Social History Comments Primary care provider, Dr. Fritz Cardiology Dr. Bernal Review of Systems Constitutional: REPORTS: dizziness Cardiovascular Comments Brief left arm pain, now resolved All Other Systems All Other Systems: Reviewed (remainder of 10-point ROS Neg.) Comments Remaining review of systems negative Physical Exam General General Nourishment: well nourished, well developed Vital Signs Vital Signs Date Time Temp Pulse Resp B/P Pulse Ox O2 Delivery O2 Flow Rate FiO2 01/14/17 11:20 97.4 57 22 150/82 97 Room Air Height (Feet): 5 Height (Inches): 9.00 Eyes Brief: FOUND: EOMI Neck Brief: FOUND: midline, NOT FOUND: adenopathy, carotid bruits, tracheal deviation Respiratory Brief: FOUND: clear all briseno, equal bilaterally, NOT FOUND: wheezes Cardiovascular (brief) Cardiac Brief: FOUND: regular rate, regular rhythm, NOT FOUND: murmur, pedal edema Abdomen (brief) Abdominal Brief: FOUND: BS normo active x4, soft, NOT FOUND: distended, tender Integumentary (brief) Integumentary Brief: FOUND: dry, pink, warm Neurologic (brief) Neurological Brief: FOUND: cranial 2-12 intact Neurologic RN Documented GCS Eye Opening: Verbal: Motor: Total: Psychiatric (brief) FOUND: alert, attentive, normal affect, oriented Laboratory Laboratory Tests Test 01/14/17 08:58 01/14/17 08:59 01/14/17 09:33 White Blood Count 5.8T/MM3 Red Blood Count 4.68M/MM3 Hemoglobin 14.8GM/DL Hematocrit 42.8% Mean Corpuscular Volume 91.5UM3 Mean Corpuscular Hemoglobin 31.6UUG Mean Corpuscular Hemoglobin Concent 34.6GM/DL RDW Standard Deviation 42.5FL Platelet Count 162T/MM3 Mean Platelet Volume 9.4UM3 Immature Granulocyte % (Auto) 0.2% Neutrophils (%) (Auto) 61.7% Lymphocytes (%) (Auto) 23.9% Monocytes (%) (Auto) 5.4% Eosinophils (%) (Auto) 8.1% Basophils (%) (Auto) 0.7% Absolute Immature Granulocyte (auto 0.01T/MM3 Absolute Neutrophils (auto) 3.6T/MM3 Absolute Lymphocytes (auto) 1.4T/MM3 Absolute Monocytes (auto) 0.3T/MM3 Absolute Eosinophils (auto) 0.5T/MM3 Absolute Basophils (auto) 0.0T/MM3 Prothromb Time International Ratio 1.20 Activated Partial Thromboplast Time 25.9SEC Turbidity < 20 Sodium Level 141MEQ/L Potassium Level 4.3MEQ/L Chloride Level 105MEQ/L Carbon Dioxide Level 28MEQ/L Anion Gap 8MEQ/L Blood Urea Nitrogen 19.0MG/DL Creatinine 1.1MG/DL Glomerular Filtration Rate Calc 64 BUN/Creatinine Ratio 17RATIO Glucose Level 130MG/DL Calculated Osmolality 275MOSM/KG Calcium Level 9.3MG/DL Total Bilirubin 1.10MG/DL Icterus Index < 2 Aspartate Amino Transf (AST/SGOT) 23U/L Alanine Aminotransferase (ALT/SGPT) 34U/L Alkaline Phosphatase 60U/L Troponin I < 0.012ng/ml Total Protein 6.6G/DL Albumin 3.8G/DL Globulin 2.8G/DL Albumin/Globulin Ratio 1.4RATIO Chemistry Specimen Hemolysis < 15 Glucometer 131mg/dL Urine Collection Type Cleancatch-midstream Urine Color Yellow Urine Turbidity Clear Urine pH 5.5 Urine Specific [place] <=1.005 Urine Protein Negative Urine Glucose (UA) Negative Urine Ketones Negative Urine Blood Negative Urine Nitrite Negative Urine Bilirubin Negative Urine Urobilinogen 0.2EU/DL Urine Leukocyte Esterase Negative Urinalysis Comment Microscopic not ind. Assessment & Plan Problems: (1) Dizziness Status: Acute (2) Chest pain, rule out acute myocardial infarction Status: Acute Assessment & Plan: Left arm pain (3) Coronary artery disease Status: Chronic (4) Hyperlipidemia Status: Chronic (5) BPH (benign prostatic hyperplasia) Status: Chronic (6) History of partial nephrectomy Status: Resolved Plan/Intensity of Service Admit patient as observation to the ICU under the care of Dr. Dean for dizziness, rule out [place] Consultation placed to Dr. Flynn for further cardiac evaluation and treatment. Based on neurologist recommendations will obtain MRI of the brain without contrast, CT of the head and neck. Will monitor on cardiac telemetry and well obtain serial troponins to rule out acute ischemia. Obtain orthostatic vital signs twice a day to monitor for orthostatic hypotension given position changes and dizziness. Will also obtain a fasting lipid panel Will continue with aspirin 324 milligrams daily Once cleared by cardiology he may have cardiac diet SCD to bilateral lower ext for DVT prophylaxis Will discuss further orders and plan of care with Dr Dean DVT Prophylaxis: SCD'S Code Status Full Code Hospital Course Summary Disclaimer The hospital course summary below is not to be considered part of the above Progress Note. Hospital Course Summary Admit patient as observation to the ICU under the care of Dr. Dean for dizziness, rule out TX Consultation placed to Dr. Flynn for further cardiac evaluation and treatment. Based on neurologist recommendations will obtain MRI of the brain without contrast, CT of the head and neck. Will monitor on cardiac telemetry and well obtain serial troponins to rule out acute ischemia. Obtain orthostatic vital signs twice a day to monitor for orthostatic hypotension given position changes and dizziness. Will also obtain a fasting lipid panel Will continue with aspirin 324 milligrams daily Once cleared by cardiology he may have cardiac diet SCD to bilateral lower ext for DVT prophylaxis Will discuss further orders and plan of care with YUSUF Hernandez DO 01/14/17 1636: Past Medical History Current Medications Home Meds Reported Medications Ubidecarenone (Co Q-10) 200 Mg Capsule, 200 MG PO DAILY 01/14/17 Clopidogrel Bisulfate (Clopidogrel) 75 Mg Tablet, 75 MG PO DAILY 01/14/17 Nitroglycerin (Nitroglycerin) 0.4 Mg Tab.subl, 0.4 MG PO Q5MIN Y for CHEST PAIN 01/09/17 Nortriptyline HCl (Nortriptyline HCl) 10 Mg Capsule, 10 MG PO HS 01/09/17 Pravastatin Sodium (Pravastatin Sodium) 40 Mg Tablet, 40 MG PO HS 01/09/17 Aspirin (Aspirin) 81 Mg Tablet, 81 MG PO DAILY 09/12/13 Tamsulosin Hcl (Tamsulosin Hcl) 0.4 Mg Cap.er.24h, 0.4 MG PO HS 09/12/13 Metoprolol Tartrate (Metoprolol Tartrate) 25 Mg Tablet, 25 MG PO DAILY 03/12/10 Allergies: Coded Allergies: No Known Drug Allergies (Verified Adverse Reaction, Unknown, 01/14/17) Assessment & Plan Assessment pt is alert and cooperative when examined. Patient states he really did not have any arm pain is much as she had arm weakness in the left arm today. He states he only had 2 very short episodes of weakness in the left arm and each episode lasted 3-5 minutes. When asked about his so-called dizziness he said it' s more of a lightheadedness and almost always hits when he stands up which makes it sound more like an orthostatic problem in in general. Patient states she's had that problem especially when standing for maybe 2 or 3 months but is been worse she thinks the last 6 months. He says it does always go away after 10 -15 or 20 seconds. Patient admits he does have coronary artery disease and that he is glad that we did the 2-D echo today to try to make sure there is everything is all right there and the mechanics of the heart. 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 Patient's exam was benign heart had a regular rate and rhythm without murmur the lungs are clear to auscultation bilaterally without crackles and without wheezes. Abdomen was soft nontender bowel sounds are physiologic. Extremities show absolutely no edema no clubbing no cyanosis. We now done to troponins and 2 EKG near one of which showed any elevation of troponin or pathology for which we need to be concerned. After examining this patient and interviewing him at length and after reviewing the H&P and the assessment and plan from a HARISH during advanced nurse practitioner, I do agree with her assessment and I agree that plan we discussed is one which she has described and is in the current process of implementing. HARISH WELCH APRN Jan 14, 2017 12:10 YUSUF DEAN DO Jan 14, 2017 16:36
--- NOTE | 2017-01-14 12:56 | DI ---
Indication: ITS.REASON: DIZZINESS, R/O TIA PROCEDURE: MRI BRAIN W/O CONTRAST: Encounter: Initial Comparisons: Brain MRI dated December 02, 2015 Technique: Multiplanar, multisequence, MR imaging of the head without contrast was acquired. FINDINGS: Mild atrophy. The ventricles are of normal size, shape, and contour for the patient's age. There are small nonspecific punctate areas of T2-weighted and T2 FLAIR weighted signal abnormality in the deep frontoparietal white matter that most likely represent small vessel ischemic disease. This is of a degree that is considered to be normal for the patient's age. The brain stem, cerebellum, and cerebral hemispheres otherwise have a normal morphologic appearance as well as MR signal intensity on all pulse sequences. There are no areas of restricted diffusion on diffusion weighted imaging to suggest an acute infarct. There is no evidence of an intracranial mass lesion, intracranial hemorrhage, or hydrocephalus. The visualized portions of the orbits, calvarium, and skull base demonstrate no significant abnormality. Mild sinus disease. IMPRESSION: No acute intracranial abnormality. Stable exam. .
--- NOTE | 2017-01-14 13:03 | NUR ---
Admit-1210 Pt admitted from radiology to CCU bed 1. Pt brought over via WC and transferred self into bed without difficulty. at bedside. Pt oriented to unit. VSS- sinus caesar and BP slightly elevated- MAP of 122. Pt reports symptoms have resolved. No numbness in any extremities. Denies any pain. Orders noted and carried out. Will continue to monitor
--- NOTE | 2017-01-14 13:33 | NUR ---
ECHO pt reports that yesterday (01/13) he had an echo performed at Dr. Fritz's office at [facility]. [facility] contacted regarding this. Echo was taken, but results have not yet been read.
--- NOTE | 2017-01-14 17:30 | ECHOF ---
DATE OF STUDY 01/14/2017 INDICATIONS TIA, abnormal EKG. Left arm numbness. TECHNICAL QUALITY Technically good 2D, M-mode, Doppler echocardiographic images were submitted for interpretation. FINDINGS 1. CARDIAC CHAMBERS: All cardiac chamber measurements are normal. Aortic root diameter is normal. RV size and contractility appear preserved. 2. LEFT VENTRICLE: Normal wall thickness. Sigmoid septum is noted. Wall motion analysis does not reveal any significant regional wall motion abnormalities. The lateral wall and posterior wall contraction appeared preserved. Systolic function is preserved. Ejection fraction is estimated at about 55%. Diastolic function parameters are considered normal with E/A 1, and E/e' 12. . 3. VALVES: Aortic valve exhibits moderate calcification. Valve opening appears mildly restricted, especially the noncoronary cusp. Mitral and tricuspid valve structure and motion appear normal. Normal valve excursion. 4. DOPPLER: Very mild insufficiency involving mitral, tricuspid and pulmonic valves, none of hemodynamic significance. Peak flow velocity at the aortic valve level measured 1.65 m/sec. Peak and mean pressure gradient measured 10 and 7 mmHg. LVOT diameter 2 cm calculates an aortic valve area of 1.6 cm2. Peak flow velocity at the LVOT level is 1 m/sec. 5. No evidence of pericardial effusion, intracardiac masses or demonstrable shunts. 6. Systolic PA pressure estimated at 25 mmHg based on Bernoulli equation. IMPRESSION 1. Normal LV systolic and diastolic function parameters. EF 55%. No significant regional wall motion abnormalities. 2. Mild calcific aortic valve stenosis, valve area 1.6 cm2. MTDD
--- NOTE | 2017-01-14 19:06 | CONSPD ---
Consultation Info Date DATE: 01/14/17 TIME: 18:47 HPI - Adult Date DATE: 01/14/17 TIME: 18:47 General Date of Admission Date of Admission: Jan 14, 2017 at 10:38 Chief Complaint: Dizziness Past Medical History Past Medical History Metabolic: hypercholesterolemia, hypertension Cardiac: CAD, [place], angina Psychological: bipolar Surgical History General: other Cardiac: cardiac cath, cardiac stent Current Medications Home Meds Reported Medications Ubidecarenone (Co Q-10) 200 Mg Capsule, 200 MG PO DAILY 01/14/17 Clopidogrel Bisulfate (Clopidogrel) 75 Mg Tablet, 75 MG PO DAILY 01/14/17 Nitroglycerin (Nitroglycerin) 0.4 Mg Tab.subl, 0.4 MG PO Q5MIN Y for CHEST PAIN 01/09/17 Nortriptyline HCl (Nortriptyline HCl) 10 Mg Capsule, 10 MG PO HS 01/09/17 Pravastatin Sodium (Pravastatin Sodium) 40 Mg Tablet, 40 MG PO HS 01/09/17 Aspirin (Aspirin) 81 Mg Tablet, 81 MG PO DAILY 09/12/13 Tamsulosin Hcl (Tamsulosin Hcl) 0.4 Mg Cap.er.24h, 0.4 MG PO HS 09/12/13 Metoprolol Tartrate (Metoprolol Tartrate) 25 Mg Tablet, 25 MG PO DAILY 03/12/10 Allergies: Coded Allergies: No Known Drug Allergies (Verified Adverse Reaction, Unknown, 01/14/17) Family History FOUND: CHF, [place] Vaccines 07/2016 Unsure UNSURE WHEN Social History Smoking Status: Never smoker Does patient use chewing tobac: No Second Hand Exposure: No Substance Use Type: does not use Alcohol Intake: none Sexuality: female partner Housing: house Household Members: spouse Advance Directives: Yes DPOA for Healthcare Only Physical Exam General Vital Signs Vital Signs Date Time Temp Pulse Resp B/P Pulse Ox O2 Delivery O2 Flow Rate FiO2 01/14/17 16:13 68 01/14/17 16:00 98.5 39 125/83 94 Room Air Height (Feet): 5 Height (Inches): 9.00 Neurologic RN Documented GCS Eye Opening: Verbal: Motor: Total: Laboratory Laboratory Tests Test 01/14/17 08:58 01/14/17 08:59 01/14/17 09:33 01/14/17 14:51 White Blood Count 5.8T/MM3 Red Blood Count 4.68M/MM3 Hemoglobin 14.8GM/DL Hematocrit 42.8% Mean Corpuscular Volume 91.5UM3 Mean Corpuscular Hemoglobin 31.6UUG Mean Corpuscular Hemoglobin Concent 34.6GM/DL RDW Standard Deviation 42.5FL Platelet Count 162T/MM3 Mean Platelet Volume 9.4UM3 Immature Granulocyte % (Auto) 0.2% Neutrophils (%) (Auto) 61.7% Lymphocytes (%) (Auto) 23.9% Monocytes (%) (Auto) 5.4% Eosinophils (%) (Auto) 8.1% Basophils (%) (Auto) 0.7% Absolute Immature Granulocyte (auto 0.01T/MM3 Absolute Neutrophils (auto) 3.6T/MM3 Absolute Lymphocytes (auto) 1.4T/MM3 Absolute Monocytes (auto) 0.3T/MM3 Absolute Eosinophils (auto) 0.5T/MM3 Absolute Basophils (auto) 0.0T/MM3 Prothromb Time International Ratio 1.20 Activated Partial Thromboplast Time 25.9SEC Turbidity < 20 Sodium Level 141MEQ/L Potassium Level 4.3MEQ/L Chloride Level 105MEQ/L Carbon Dioxide Level 28MEQ/L Anion Gap 8MEQ/L Blood Urea Nitrogen 19.0MG/DL Creatinine 1.1MG/DL Glomerular Filtration Rate Calc 64 BUN/Creatinine Ratio 17RATIO Glucose Level 130MG/DL Calculated Osmolality 275MOSM/KG Calcium Level 9.3MG/DL Total Bilirubin 1.10MG/DL Icterus Index < 2 Aspartate Amino Transf (AST/SGOT) 23U/L Alanine Aminotransferase (ALT/SGPT) 34U/L Alkaline Phosphatase 60U/L Troponin I < 0.012ng/ml < 0.012ng/ml Total Protein 6.6G/DL Albumin 3.8G/DL Globulin 2.8G/DL Albumin/Globulin Ratio 1.4RATIO Chemistry Specimen Hemolysis < 15 < 15 Glucometer 131mg/dL Urine Collection Type Cleancatch-midstream Urine Color Yellow Urine Turbidity Clear Urine pH 5.5 Urine Specific [place] <=1.005 Urine Protein Negative Urine Glucose (UA) Negative Urine Ketones Negative Urine Blood Negative Urine Nitrite Negative Urine Bilirubin Negative Urine Urobilinogen 0.2EU/DL Urine Leukocyte Esterase Negative Urinalysis Comment Microscopic not ind. Impression/Recommendation Recommendation unstable angina as manifesetd by L arm pain similar to previous [place] 2009 abnl EKG with subtle changes in LCX/OM distribution resolved CAD lightheadeness appears orthostatic no evidence of KS or CVA . see Rx orders. HC tuesday see full dictation BEATRIZ ARNOLD MD Jan 14, 2017 19:06
[2017-01-14] MEDS ORDERED: NITROGLYCERIN 0.4 MG SUBLINGUAL TABLET SL PRN (19:30)
[2017-01-14] MEDS: ATORVASTATIN 40 MG TABLET PO SCH (20:23)
[2017-01-14] MEDS: ENOXAPARIN 40 MG/0.4 ML INJECTION SQ SCH (20:24)
[2017-01-14] MEDS ORDERED: NS KCL 20 MEQ 1,000 ML IV SCH (21:45)
[2017-01-15] VITALS (41 sets, daily range): BP systolic 92–160; BP diastolic 59–91; PULSE 55–101; RESP 12–34; TEMP 97.4–98.2; O2SAT 91–97
[2017-01-15 04:53] LABS: ANION GAP 7 MEQ/L (5-15); BUN/CREATININE RATIO 18 RATIO (6-26); CALCIUM 9.2 MG/DL (8.4-10.2); CHLORIDE 106 MEQ/L (98-107); CO2 - CARBON DIOXIDE 27 MEQ/L (22-30); CREATININE 1.1 MG/DL (0.8-1.5); GLOMERULAR FILTRATION RATE 64; GLUCOSE 103 MG/DL (75-110); POTASSIUM 4.1 MEQ/L (3.6-5); SODIUM 140 MEQ/L (134-144)
[2017-01-15 05:06] LABS: BASOPHILS % (AUTO) 0.4 % (0-2); EOSINOPHILS # (AUTO) 0.6 T/MM3 (0-0.5); EOSINOPHILS % (AUTO) 7.6 % (0-4); HCT - HEMATOCRIT 41.8 % (41-53); HGB - HEMOGLOBIN 14.6 GM/DL (13.5-17.5); IMMATURE GRANULOCYTE # (AUTO) 0.01 T/MM3 (0.00-0.03); IMMATURE GRANULOCYTE % (AUTO) 0.1 % (0.0-0.5); LYMPHOCYTES # (AUTO) 1.9 T/MM3 (1-4.8); LYMPHOCYTES % (AUTO) 26.5 % (23-45); MEAN CORPUSCULAR HGB 31.5 UUG (26-34); MEAN CORPUSCULAR HGB CONC(MCHC 34.9 GM/DL (31-37); MEAN CORPUSCULAR VOLUME 90.3 UM3 (80-100); MONOCYTES # (AUTO) 0.5 T/MM3 (0-0.8); MONOCYTES % (AUTO) 6.6 % (0-9.0); NEUTROPHILS #(AUTO)-ABSOLUTE 4.3 T/MM3 (1.8-7.7); NEUTROPHILS % (AUTO) 58.8 % (33-66); RED BLOOD COUNT 4.63 M/MM3 (4.50-5.90); WBC - WHITE BLOOD COUNT 7.3 T/MM3 (4.5-11.0)
--- NOTE | 2017-01-15 06:26 | NUR ---
Shift Summary Patient has slept well during the night. VSS. No nausea or SOA reported. Patient did complain about a headache off and on during the night, but denied the need for pain medication. No chest pain reported, only chest discomfort. Patient did complain of a slight numbness of the left face and arm during the night, but went away shortly after it began. Patient stated it was the same feeling he gets when exercising. HR has been in the 60s with occasion 50s, sinus rhythm.
[2017-01-15] MEDS: ENOXAPARIN 40 MG/0.4 ML INJECTION SQ SCH (08:32)
[2017-01-15] MEDS: POM METOPROLOL TARTRATE 25mg TABLET PO SCH (08:32)
[2017-01-15] MEDS: POM CLOPIDOGREL 75 MG TABLET PO SCH (08:32)
[2017-01-15] MEDS ORDERED: ASPIRIN 81 MG CHEWABLE TABLET PO SCH ×2 (09:00)
[2017-01-15] MEDS ORDERED: ASPIRIN 81 MG PO SCH (09:00)
--- NOTE | 2017-01-15 09:15 | CONSF ---
DATE OF CONSULTATION 01/14/2017 [facility] Hospitalist Service, Dr. Dean IMPRESSION Patient was interviewed and examined, available records were reviewed, the following conclusions were made: 1. Unstable angina, with abnormal EKG. 2. Coronary artery disease, with prior NH and angioplasty. 3. Dizziness and lightheadedness appears to be orthostatic. 4. Hypertension. 5. Dyslipidemia. 6. Chronic headache. DISCUSSION AND PLAN 1. I concur with your management of putting the patient in the CCU due to abnormal EKG ruling out NH and ruling stroke. Fortunately both have been excluded. I have been in contact with the primary team and emergency room since the patient was evaluated there. 2. I had a lengthy discussion with the patient regarding his symptoms. He had some subtle EKG changes with transient ST-T changes that are concerning in posterior and lateral distribution (V1, V2, and aVL), giving suspicion of left circumflex artery distribution. Patient is currently angina free. He seems anxious to go home tomorrow. We will see how he does overnight and have further discussions. I discussed with him both noninvasive versus invasive cardiac workup. I feel with his symptoms and cardiac history plus EKG findings he would be best served by proceeding with heart catheterization on Tuesday. He understood the risks and benefits, and he is in agreement with the plan. 3. We will watch for recurrence of symptoms and I will adjust medical therapy to optimize protection. I instructed him on use of sublingual nitroglycerin p.r.n. We will keep him on Plavix, aspirin, and beta michael. I am going to push his statin to a more potent one for greater cardiac protection. 4. Consider adjusting medications such as Flomax and nortriptyline due to the patient's orthostasis. I will plan on making rounds on January 15. 5. Serial EKGs and troponins as you are doing. 6. Echocardiogram ordered and reviewed in consultation. Thank you for your consultation. HISTORY OF PRESENT ILLNESS Mr. Cedeno is a most pleasant, 81-year-old male with a known coronary artery disease as noted below. He has been in his previous state of health. He was seen in the emergency room due to lightheadedness upon standing up and improved by sitting about a week ago, and there was a concern about possible TIA. Again he presented to the emergency room today with lightheadedness. This time he woke up in the morning and just getting out of bed he felt very lightheaded. He had to sit down. He started experiencing left arm both dull pain and some weakness from the shoulder down to the elbow level. He did not notice any worsening or relieving factors. The pain lasted for a good 10 to 15 minutes, then it came back so he decided to call the squad to bring him to the emergency room. He did not receive any sublingual nitroglycerin. He did not have any associated chest pain, pressure, dyspnea, or palpitations. Evaluation in the emergency room shows subtle changes on the EKG. They did not meet the STEMI criteria. I consulted with the emergency room doctor. We also compared the previous EKGs and placement in CCU and low-dose Lovenox was recommended. There was concern about possible stroke and full workup came back negative. I have recommended that the patient receive low-dose Lovenox 40 mg daily. Workup for stroke was negative including MRI. MR angiogram showed some plaquing in the carotid artery. I could not evaluate the severity due to motion artifact. Troponins x2 came back negative already. Repeat EKG came back unremarkable as the subtle changes in the posterior and lateral wall have entirely resolved. The initial EKG did show about 0.[address] elevation in both leads. That does not meet the criteria for STEMI. There was also a prominent R wave consistent with posterior NH, a tiny Q wave in I, aVL, left axis deviation. Chest x-ray shows no acute abnormality. Laboratory is essentially unremarkable. Normal CBC. Chemistry unremarkable except for hyperglycemia at 130. Lipid profile is pending. Upon further questioning, the patient had a prior angioplasty x2. He remembers in 2008 when he had a NH. He had left arm pain at that time. It was worse than this time. It has been over two years since he has had a stress nuclear scan with Dr. Santiago Bernal. He has no other complaints at this time. Patient was started on Plavix one week ago for possibility of TIA in the ER. PAST MEDICAL/PAST SURGICAL HISTORY 1. Coronary artery disease status post NH x2 and angioplasty and stent to LAD and left circumflex artery in 1999 and 2008. 2. Dyslipidemia. 3. Hypertension. 4. Prostatism. 5. Renal adenoma. 6. Bilateral inguinal hernia repairs. 7. History of cytoma removal. 8. Right nephrectomy. MEDICATIONS Hospital medications reviewed in the EMR in detail including Plavix, aspirin, Pravastatin 40 mg daily, nortriptyline, sublingual nitroglycerin p.r.n., tamsulosin, metoprolol tartrate 25 mg daily. ALLERGIES None. FAMILY HISTORY Father had a stroke and NH. Mother had NH. SOCIAL HISTORY Never a smoker. He does not drink alcohol. He is . He goes to Dr. Fritz. REVIEW OF SYSTEMS Positive for lightheadedness. No leg weakness, vertigo, speech difficulty, or diplopia. No hematochezia, melena, abdominal pain, nausea, or vomiting. No fever, chills, night sweats. No hematuria or dysuria. No hemoptysis, cough, wheezing, phlegm production, orthopnea, PND, or lower extremity edema. No problem with anxiety or depression. PHYSICAL EXAMINATION GENERAL: Alert and oriented x3, very pleasant. Looks in no acute cardiorespiratory distress. VITAL SIGNS: Vital signs are stable, afebrile. O2 saturation 94% on room air. Blood pressure 130/80. Pulse rate 58 beats per minute. HEENT: Head is atraumatic, normocephalic. Jugular venous pressure is normal. Carotid upstrokes equal without bruits. CHEST: Clear to auscultation bilaterally. HEART: Regular rate and rhythm. Positive S4. Grade 2/6 mild aortic stenosis murmur is present. Chest is clear. No chest wall tenderness or left arm tenderness. No pain or tenderness on the range of motion. ABDOMEN: Soft, nontender, nondistended. Normoactive bowel sounds are present. No organomegaly or masses. EXTREMITIES: Lower extremities without any pitting edema. Peripheral pulses are intact. NEUROLOGIC: Very strong in both arms. He is strong in the legs as well. Cranial nerves appear intact. No focal neurological deficits were identified. DIAGNOSTIC DATA Diagnostic data as above in the HPI. Significant only for hyperglycemia at 130 and EKG changes on the first but not the second tracing, which are subtle ST elevation doesn't meet ekg criteria for STEMI ,and seen in V1, V2, and aVL. Echocardiogram shows normal systolic function. I will see the patient in followup on 01/15/2017. If he meets inpatient criteria, I would like to keep him here until heart catheterization on Tuesday as this facility does not have microbiology lab analyst hours on weekends and no ongoing unstable symptoms that would warrant transfer to a bigger facility in [place] for microbiology lab analyst at this time. I had a lengthy discussion with the patient and Dr. Dean , hospitalist, regarding this matter. We are on the same page, I believe. GAIL
--- NOTE | 2017-01-15 11:57 | NUR ---
FLO Clemente is sitting up in the chair after ambulating in the hallways. He has been up walking twice and up to the toilet, without symptoms of orthostasis. Orthostatic vitals were taken this morning after lying flat for 20 minutes and documented. Patient reports that he has had one fairly recent episode of vertigo that lasted several minutes, and has not recurred. Bryn seems mildly anxious about his situation and is frustrated that he has not been visited by a physician yet today. He has questions regarding his lightheadedness, his perception of blunted sensation to his left cheek (not a new symptom), his chronic right sided headache which is worse since not having his nortriptyline last evening, his aspirin dose, and whether he can be discharged today and come back for the heart cath on Tuesday. He had seen Dr Sarmiento regarding this headache in the past. He is asymptomatic at this time except for the headache and the blunted sensation to the left cheek as described earlier. There is no difference to the actual sensation of the right and left cheeks when tested with tactile stimulation. There is no chest pain or pressure, and no left arm pain. He had questions regarding whether he might have diabetes. Blood sugars were reviewed from a recent ER visit and this visit and results reviewed with the patient. He was encouraged to ask his PCP about follow up testing, or Dr Dean when he rounds, but understands that although his sugar on presentation to ER yesterday was high, his fasting value this morning was WNL. Dr Dean is here to round.
--- NOTE | 2017-01-15 12:24 | NUR ---
CM CM IN TO VISIT WITH PT. HE IS ALERT AND ORIENTED. HE PLANS TO DC HOME. HE DENIES DC NEEDS. HE IS GIVEN CM CONTACT INFORMATION. Addendum: 01/15/17 at 1225 by DELMAR CAMPO RN Amended: Links added.
--- NOTE | 2017-01-15 12:32 | NUR ---
ASPIRIN DOSE Have requested clarification of Aspirin dose from Dr Dean due to discrepancy between 81 mg ASA ordered on the EMAR and what is stated on the H&P/plan (324 mg).
--- NOTE | 2017-01-15 14:36 | PNPDOC ---
Subjective Date DATE: 01/15/17 TIME: 14:26 Subjective Mr. Cedeno was sitting in a chair looking quite relaxed and reading the newspaper when I came into examine him today. He has stated he has been having some headaches but he thinks that's due to the nortriptyline not being prescribed for him here in the hospital. Additionally he had questions about the dosing of his aspirin and we discussed that at length. He is thinking he wants to go home instead of staying in the hospital until Tuesday to have the cardiac catheter. He asked my opinion and I suggested he talk over that course of action with Dr. Quesada and he agreed to wait until comes in to the ICU to discuss that with the doctor. He denies any shortness of breath and he denies any chest pain. He denies any left arm weakness or pain and denies any abdominal pain or digestive problems. Does not complain of lightheadedness today. He told me he plans to discuss with Dr. Quesada the possibility that he goes he might go back to Dr. Bernal who has done prior catheterizations of his heart for the next one also. Objective Vital Signs Vital signs Head is normocephalic and oropharynx is clear Heart shows a regular rate and rhythm without murmur. Lungs are clear to auscultation without wheezing or crackles. Abdomen is soft and nontender bowel sounds are physiologic Extremities show no clubbing cyanosis or edema cranial nerves II through XII are grossly intact. Vital Signs Date Time Temp Pulse Resp B/P Pulse Ox O2 Delivery O2 Flow Rate FiO2 01/15/17 12:00 62 20 127/73 94 Room Air 01/15/17 08:00 97.8 Height (Feet): 5 Height (Inches): 9.00 Weight (Kilograms): 75.400 Laboratory Laboratory Laboratory Tests 01/14/17 08:58 01/15/17 04:13 Laboratory Tests 01/14/17 08:58 01/15/17 04:13 Assessment & Plan Problems: (1) Dizziness Status: Acute (2) Chest pain, rule out acute myocardial infarction Status: Acute Assessment & Plan: Left arm pain (3) Coronary artery disease Status: Chronic (4) Hyperlipidemia Status: Chronic (5) BPH (benign prostatic hyperplasia) Status: Chronic (6) History of partial nephrectomy Status: Resolved Assessment pt is alert and cooperative when examined. Patient states he really did not have any arm pain is much as she had arm weakness in the left arm today. He states he only had 2 very short episodes of weakness in the left arm and each episode lasted 3-5 minutes. When asked about his so-called dizziness he said it' s more of a lightheadedness and almost always hits when he stands up which makes it sound more like an orthostatic problem in in general. Patient states she's had that problem especially when standing for maybe 2 or 3 months but is been worse she thinks the last 6 months. He says it does always go away after 10 -15 or 20 seconds. Patient admits he does have coronary artery disease and that he is glad that we did the 2-D echo today to try to make sure there is everything is all right there and the mechanics of the heart. 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 Patient's exam was benign heart had a regular rate and rhythm without murmur the lungs are clear to auscultation bilaterally without crackles and without wheezes. Abdomen was soft nontender bowel sounds are physiologic. Extremities show absolutely no edema no clubbing no cyanosis. We now done to troponins and 2 EKG near one of which showed any elevation of troponin or pathology for which we need to be concerned. After examining this patient and interviewing him at length and after reviewing the H&P and the assessment and plan from a HARISH stinson advanced nurse practitioner, I do agree with her assessment and I agree that plan we discussed is one which she has described and is in the current process of implementing. Plan/Intensity of Service Assessment: Lightheadedness, left arm weakness or pain; subtle EKG changes plan: Patient will wait to Dr. Dr. Gamboa when he comes in this afternoon and then decide whether he wants to go ahead and go home or have his stay converted to an inpatient admission. Either way he plans to either have Dr. Flynn do the cardiac catheter here on Tuesday or perhaps he'll wait and have his old doctor, Dr. Bernal, do a cardiac catheter as he has done once or twice in the past with this patient. Will monitor on cardiac telemetry and well obtain serial troponins to rule out acute ischemia. Obtain orthostatic vital signs twice a day to monitor for orthostatic hypotension given position changes and dizziness. Will also obtain a fasting lipid panel Will continue with aspirin 324 milligrams daily Once cleared by cardiology he may have cardiac diet SCD to bilateral lower ext for DVT prophylaxis Will discuss further orders and plan of care with Dr Dean Code Status Full Code Hospital Course Summary Disclaimer The hospital course summary below is not to be considered part of the above Progress Note. Hospital Course Summary Admit patient as observation to the ICU under the care of Dr. Dean for dizziness, rule out [place] Consultation placed to Dr. Flynn for further cardiac evaluation and treatment. Based on neurologist recommendations will obtain MRI of the brain without contrast, CT of the head and neck. Will monitor on cardiac telemetry and well obtain serial troponins to rule out acute ischemia. Obtain orthostatic vital signs twice a day to monitor for orthostatic hypotension given position changes and dizziness. Will also obtain a fasting lipid panel Will continue with aspirin 324 milligrams daily Once cleared by cardiology he may have cardiac diet SCD to bilateral lower ext for DVT prophylaxis Will discuss further orders and plan of care with YUSUF Hernandez DO Jan 15, 2017 14:31
--- NOTE | 2017-01-15 18:40 | NUR ---
CONTACT CARDIOLOGY This RN contacted Dr Flynn after patient again inquired as to when he will round. Update given to the physician who states that he will round within an hour. This information was relayed to the patient and to Dr Dean.
--- NOTE | 2017-01-15 19:46 | NUR ---
CARDIOLOGY Dr Flynn is here to round on patient at this time.
--- NOTE | 2017-01-15 19:49 | NUR ---
SUMMARY Bryn has been in stable condition today without recurrence of arm pain or weakness and no chest pain or pressure, no SOA/diaphoresis or nausea. He has been up and ambulating without significant orthostatic symptoms (none this afternoon, brief lightheadedness mentioned this am when up to the bathroom) or change in symptoms.
--- NOTE | 2017-01-15 20:10 | NUR ---
Dr Gee Flynn here and speaks with pt and . Dr Flynn alerts nursing staff of pt decision to have heart cath on Tuesday. Dr Flynn states pt is to stay in hospital until after heart cath, but may move out to medical floor IF ok with Dr Dean.
[2017-01-15] MEDS: ATORVASTATIN 40 MG TABLET PO SCH (20:44)
[2017-01-15] MEDS: POM ASPIRIN *EC* 81mg TABLET PO SCH (20:45)
[2017-01-15] MEDS: NORTRIPTYLINE 10 MG PO SCH (20:46)
[2017-01-15] MEDS: POM TAMSULOSIN 0.4 MG CAPSULE PO SCH (20:46)
[2017-01-16] VITALS (30 sets, daily range): BP systolic 94–157; BP diastolic 54–104; PULSE 47–115; RESP 15–33; TEMP 97.6–98.2; O2SAT 89–98
--- NOTE | 2017-01-16 06:15 | NUR ---
Status Pt slept well during night. Pt states last odell he has 1/10 pain in head that is chronic along with some lightheadedness that is also chronic, but denies need for any pain meds. Pt denies pain rest of night. Pt pleasant and cooperative during night. Pt HR noted to briefly drop down while sleeping into the upper 30's/lower 40's then quickly go back up to 50s and 60s. Pt on RA and denies SOA. Pt denies nausea. Will continue to monitor.
[2017-01-16] MEDS: POM METOPROLOL TARTRATE 25mg TABLET PO SCH (08:00)
[2017-01-16] MEDS: POM CLOPIDOGREL 75 MG TABLET PO SCH (08:52)
[2017-01-16] MEDS: ENOXAPARIN 40 MG/0.4 ML INJECTION SQ SCH (08:53)
--- NOTE | 2017-01-16 08:55 | NUR ---
LIGHTHEADEDNESS Reports onset of an approximately 2 minute period of lightheadedness that started gradually and improved gradually, with onset while he was sitting forward in his chair shaving. He leaned back in the chair and things gradually improved. He described still feeling just a slight bit off but improved within 5 minutes. BP checked at the time of patient's report: 102/62. After several more minutes, this RN had the patient stand and monitored for symptoms. Within a few seconds of standing, patient reported a return of the lightheadedness that worsened, to a need to sit down within approximately 15 seconds. During this period the patient's heart rate was noted to increase from 97 (sitting) to 120 (at which point he sat down). He also described "feeling something" in his left arm. When asked to describe further, he indicated that it wasn't a pins and needles type feeling or pain as a weakness. He stated that this arm symptom and the lightheadedness improved rapidly after he sat down.
--- NOTE | 2017-01-16 09:09 | NUR ---
ADDITIONAL TESTING Nurse and patient again decided to have patient stand from the recliner and monitor for symptoms. This time, the heart rate increased gradually from 102 bpm to 123 bpm and sustained at 122-125 bpm during several minutes of standing. The lightheadedness was not as prominent, although Bryn reported several times that he felt "on the verge of it coming back", and reported that he just feels a bit off kilter. Blood pressure recheck was 104/57. Metoprolol has not yet been given this morning, and I will hold this until I speak with the physician. He notes that while has had brief periods of this at home, that there have been entire mornings where this has happened and he just feels off for several hours, then later in the day suddenly notes "I feel better now".
--- NOTE | 2017-01-16 13:38 | PNPDOC ---
Subjective Date DATE: 01/16/17 TIME: 13:29 Subjective 01/16 Dr. Dean note when I saw Mr. Clemente today he was lying in bed watching television. He was stated he wanted to talk about another episode lightheadedness last night. He stated when he stood up he got lightheaded and had to sit back down the nurse was present and assisted him. He states he is drinking more water but admits it's probably not enough. I've advised him in the passive standup slowly and he said he did not do that. He denies shortness of breath denies any chest pain. He does states a little bit of abdominal discomfort but that he has at home a lot that it is not negative. He describes it as pretty minor. He tells me N Dr. Quesada decided that he would stay here until he can have his cardiac catheter done tomorrow at our institution. He denies any problems with bowel or bladder function today. He also states some nortriptyline helped his headache and he is glad we restarted that. Objective Vital Signs Vital signs Head is normocephalic and the tongue is quite dry when I looked at it night once again cautioned patient to try to drink more water throughout each day. Has a regular rate and rhythm no murmur is appreciated Lungs are clear to auscultation bilaterally with no wheezing. Abdomen is soft nontender with physiologic bowel sounds Termination of clubbing or cyanosis. Also they show no edema. Vital Signs Date Time Temp Pulse Resp B/P Pulse Ox O2 Delivery O2 Flow Rate FiO2 01/16/17 08:00 80 01/16/17 07:57 107/73 01/16/17 07:57 98.1 21 94 Room Air Height (Feet): 5 Height (Inches): 9.00 Weight (Kilograms): 74.300 Laboratory Laboratory Laboratory Tests 01/15/17 04:13 Laboratory Tests 01/15/17 04:13 Assessment & Plan Problems: (1) Dizziness Status: Acute (2) Chest pain, rule out acute myocardial infarction Status: Acute Assessment & Plan: Left arm pain (3) Coronary artery disease Status: Chronic (4) Hyperlipidemia Status: Chronic (5) BPH (benign prostatic hyperplasia) Status: Chronic (6) History of partial nephrectomy Status: Resolved Assessment & Plan: Assessment: 1. Left arm weakness that continues especially when patient has his lightheadedness. 2. Lightheadedness when standing and that is an occasional problem. We should note that last night the nurse checked patient states stable with blood pressure but winced when he stood up from a sitting position as pulse male he jessica from around 9220+ so his heart is having to do the compensation for his prostatic blood flow to the brain. 3. Patient has EKG changes which are are fairly subtle in nature but are small 1/[address] elevations. For coronary artery re-disease is a chronic problem and we expect him to have his cardiac catheter done on Tuesday tomorrow. Benign prostatic hypertrophy does chronic problem for which he is on Flomax now. 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 We should note we finally reviewed the 2-D echocardiogram and it did note there is mild aortic valve stenosis present we do not plan to do any medication changes however we do plan to transfer this patient to the floor as he has been stable and probably ought to be transferred to a surgical floor bed prior to his cardiac catheterization scheduled for tomorrow Assessment pt is alert and cooperative when examined. Patient states he really did not have any arm pain is much as she had arm weakness in the left arm today. He states he only had 2 very short episodes of weakness in the left arm and each episode lasted 3-5 minutes. When asked about his so-called dizziness he said it' s more of a lightheadedness and almost always hits when he stands up which makes it sound more like an orthostatic problem in in general. Patient states she's had that problem especially when standing for maybe 2 or 3 months but is been worse she thinks the last 6 months. He says it does always go away after 10 -15 or 20 seconds. Patient admits he does have coronary artery disease and that he is glad that we did the 2-D echo today to try to make sure there is everything is all right there and the mechanics of the heart. 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 Patient's exam was benign heart had a regular rate and rhythm without murmur the lungs are clear to auscultation bilaterally without crackles and without wheezes. Abdomen was soft nontender bowel sounds are physiologic. Extremities show absolutely no edema no clubbing no cyanosis. We now done to troponins and 2 EKG near one of which showed any elevation of troponin or pathology for which we need to be concerned. After examining this patient and interviewing him at length and after reviewing the H&P and the assessment and plan from a HARISH stinson advanced nurse practitioner, I do agree with her assessment and I agree that plan we discussed is one which she has described and is in the current process of implementing. Plan/Intensity of Service Assessment: Lightheadedness, left arm weakness or pain; subtle EKG changes plan: Patient will wait to Dr. Dr. Gamboa when he comes in this afternoon and then decide whether he wants to go ahead and go home or have his stay converted to an inpatient admission. Either way he plans to either have Dr. Flynn do the cardiac catheter here on Tuesday or perhaps he'll wait and have his old doctor, Dr. Bernal, do a cardiac catheter as he has done once or twice in the past with this patient. Will monitor on cardiac telemetry and well obtain serial troponins to rule out acute ischemia. Obtain orthostatic vital signs twice a day to monitor for orthostatic hypotension given position changes and dizziness. Will also obtain a fasting lipid panel Will continue with aspirin 324 milligrams daily Once cleared by cardiology he may have cardiac diet SCD to bilateral lower ext for DVT prophylaxis Will discuss further orders and plan of care with Dr Dean Code Status Full Code Hospital Course Summary Disclaimer The hospital course summary below is not to be considered part of the above Progress Note. Hospital Course Summary Admit patient as observation to the ICU under the care of Dr. Dean for dizziness, rule out ID Consultation placed to Dr. Flynn for further cardiac evaluation and treatment. Based on neurologist recommendations will obtain MRI of the brain without contrast, CT of the head and neck. Will monitor on cardiac telemetry and well obtain serial troponins to rule out acute ischemia. Obtain orthostatic vital signs twice a day to monitor for orthostatic hypotension given position changes and dizziness. Will also obtain a fasting lipid panel Will continue with aspirin 324 milligrams daily Once cleared by cardiology he may have cardiac diet SCD to bilateral lower ext for DVT prophylaxis Will discuss further orders and plan of care with YUSUF Hernandez DO Jan 16, 2017 13:34
--- NOTE | 2017-01-16 13:49 | NUR ---
STATUS Patient reported a brief episode of chest discomfort this morning right before Dr Dean visit. States that this was not exactly "pain" but discomfort, and lasted less than 10 minutes. He discussed this with Dr Dean and later with me. He has consistently had tachycardia upon arising, sometimes with lightheadedness, other times has tolerated being up without problems. He has been steady. Maximum HR noted was 138 bpm when up to the bathroom. Transfer report has been given to GAVINO Blackburn.
--- NOTE | 2017-01-16 14:10 | NUR ---
TRANSFER Patient transferred per wheelchair to room 126 at this time, without active chest pain or other symptoms.
--- NOTE | 2017-01-16 14:10 | NUR ---
Arrival Pt arrived to room 126 from CCU. Pt ambulated from a wheelchair to bed with standby assist. Pt denies lightheadness, dizziness or chest pain at this time. Will continue to monitor.
[2017-01-16] MEDS: COENZYME Q10 200 MG PO SCH (18:00)
--- NOTE | 2017-01-16 18:00 | NUR ---
COQ10 PT STATES HE TAKES THIS MED IN THE AM, NOT AT NIGHT
--- NOTE | 2017-01-16 19:36 | NUR ---
SUMMARY PT HAS CONTINUED TO DENY CP SINCE TRANSFER. ALSO DENIES DIZZINESS WITH OR WITHOUT POSITION CHANGE. SHOWERED WITHOUT INCIDENT.
[2017-01-16] MEDS: POM ASPIRIN *EC* 81mg TABLET PO SCH (20:40)
[2017-01-16] MEDS: ATORVASTATIN 40 MG TABLET PO SCH (22:09)
[2017-01-16] MEDS: POM TAMSULOSIN 0.4 MG CAPSULE PO SCH (22:09)
[2017-01-16] MEDS: NORTRIPTYLINE 10 MG PO SCH (22:10)
[2017-01-17] VITALS (23 sets, daily range): BP systolic 95–154; BP diastolic 50–88; PULSE 61–88; RESP 12–22; TEMP 97.6–98.1; O2SAT 92–97
[2017-01-17] MEDS ORDERED: NORMAL SALINE 1,000 ML IV ONE (01:00)
[2017-01-17] MEDS: ENOXAPARIN 40 MG/0.4 ML INJECTION SQ SCH (01:02)
--- NOTE | 2017-01-17 02:45 | NUR ---
Chart Check 24 hour chart check completed
[2017-01-17] MEDS ORDERED: NORMAL SALINE 1,000 ML IV SCH ×2 (06:00→12:30)
--- NOTE | 2017-01-17 06:50 | NUR ---
STATUS PATIENT ALERT AND ORIENTED X3. PATIENT SLEPT OFF AND ON BETWEEN CARES.NPO EXCEPT MEDS . PATIENT DENIES CHEST PAIN,SOA,OR N/V. 0.9% NS 75ML/HR STARTED AT LAC IV LOCK . PATIENT AMBULATED TO BATHROOM TO USE URINAL .CALL LIGHT WITHIN REACH. SCDS USED AT BOTH LOW EXTREMITIES. CONTINUE TO MONITOR.
[2017-01-17] MEDS: COENZYME Q10 200 MG PO SCH (08:18)
[2017-01-17] MEDS: POM CLOPIDOGREL 75 MG TABLET PO SCH (08:19)
[2017-01-17] MEDS ORDERED: FENTANYL 100mcg/2ml INJECTION ONE (09:37)
[2017-01-17] MEDS ORDERED: MIDAZOLAM 2mg/2ml INJECTION ONE (09:37)
[2017-01-17] MEDS ORDERED: NITROGLYCERIN 50mg/10ml INJECTION IV ONE (09:38)
[2017-01-17] MEDS ORDERED: VERAPAMIL 5mg/2ml INJECTION IV ONE (09:38)
[2017-01-17] MEDS ORDERED: SALINE FLUSH 10ml SYRINGE ONE (09:38)
[2017-01-17] MEDS ORDERED: HEPARIN 1,000units in NS 500ml BAG IV ONE (09:38)
[2017-01-17] MEDS ORDERED: LIDOCAINE 1% (10mg/ml) 30ml SDV ONE (09:39)
--- NOTE | 2017-01-17 09:39 | NUR ---
TO INSURANCE CLAIMS ANALYST PT TRANSPORTED TO [facility]URANCE CLAIMS [facility]NALYST AT THIS TIME VIA CART AND ACCOMPANIED BY MARZENA GALVIN. PT'S PRESENT UPON TRANSFER. VITAL SIGNS STABLE ON ROOM AIR. PT VOIDED PRIOR TO TRANSFER. INFORMED CONSENT OBTAINED PRIOR TO TRANSFER. PERSONAL BELONGINGS REMAIN IN ROOM. WILL CONTINUE TO MONITOR.
[2017-01-17] MEDS ORDERED: IOHEXOL 350mg/ml 200ml BOTTLE ONE (10:24)
--- NOTE | 2017-01-17 11:00 | NUR ---
RETURN PT RETURNED TO ROOM 126 AT THIS TIME VIA CART AND ACCOMPANIED BY STAFF. PT TRANSFERRED SELF FROM CART TO BED. VITAL SIGNS STABLE ON ROOM AIR. TR BAND IN PLACE TO RIGHT WRIST. BED ALARM ON. PRESENT IN ROOM UPON RETURN. WILL CONTINUE TO MONITOR CLOSELY.
[2017-01-17] MEDS ORDERED: ATROPINE 1 MG/ML VIAL IV PRN (12:30)
[2017-01-17] MEDS ORDERED: BISACODYL 5 MG E.C. TABLET PO PRN (12:30)
[2017-01-17] MEDS ORDERED: MAG-AL + SIM LIQUID 30 ML UDC PO PRN (12:30)
[2017-01-17] MEDS ORDERED: PROMETHAZINE 25 MG INJECTION IV PRN (12:30)
[2017-01-17] MEDS ORDERED: ONDANSETRON 4mg/2ml INJECTION IV PRN (12:30)
[2017-01-17] MEDS ORDERED: NITROGLYCERIN 0.4 MG SUBLINGUAL TABLET SL PRN (12:30)
[2017-01-17] MEDS ORDERED: METOCLOPRAMIDE 10mg/2ml INJECTION IV PRN (12:30)
[2017-01-17] MEDS ORDERED: HYDROCODONE/APAP 5 mg/325 mg TABLET PO PRN (12:30)
[2017-01-17] MEDS ORDERED: ACETAMINOPHEN 325 MG TABLET PO PRN (12:30)
[2017-01-17] MEDS ORDERED: MILK OF MAGNESIA 30 ML SUSP PO PRN (12:30)
[2017-01-17] MEDS ORDERED: MORPHINE SULFATE 4 MG SYRINGE IV PRN ×2 (12:30)
[2017-01-17] MEDS ORDERED: BISACODYL 10 MG SUPPOSITORY RECTALLY PRN (12:30)
[2017-01-17] MEDS ORDERED: LORAZEPAM 0.5 MG TABLET PO PRN (12:30)
[2017-01-17] MEDS ORDERED: LORAZEPAM 2 MG/ML INJECTION IV PRN (12:30)
--- NOTE | 2017-01-17 12:31 | PNPDOC ---
Subjective Date DATE: 01/17/17 TIME: 12:21 Subjective 01/17/2017 Dr. Dean : I saw Mr. Bryn Clemente after his cardiac cath today. The cardiac cath he says showed that he will need some bypass surgery and we are now preparing to send him to [facility] so he can receive that surgery. Patient denies shortness of breath. Patient denies any chest pain or palpitations. Patient denies any abdominal pain. Patient denies any coughing or choking. Patient denies any pain with walking or standing up doing his activities of daily living. Objective Vital Signs Vital signs Heart demonstrates a regular rate and rhythm without murmur Lungs are clear to auscultation bilaterally with no wheezing Abdomen soft and nontender with physiologic bowel sounds Extremities show no cyanosis and no edema Cranial nerves II through XII are grossly intact Vital Signs Date Time Temp Pulse Resp B/P Pulse Ox O2 Delivery O2 Flow Rate FiO2 01/17/17 12:00 80 20 116/85 93 Room Air 01/17/17 11:00 97.6 Height (Feet): 5 Height (Inches): 9.00 Weight (Kilograms): 74.500 Assessment & Plan Problems: (1) Dizziness Status: Acute (2) Chest pain, rule out acute myocardial infarction Status: Acute Assessment & Plan: Left arm pain (3) Coronary artery disease Status: Chronic (4) Hyperlipidemia Status: Chronic (5) BPH (benign prostatic hyperplasia) Status: Chronic (6) History of partial nephrectomy Status: Resolved Assessment & Plan: Assessment: 1. Left arm weakness that continues especially when patient has his lightheadedness. 2. Lightheadedness when standing and that is an occasional problem. We should note that last night the nurse checked patient states stable with blood pressure but winced when he stood up from a sitting position as pulse male he jessica from around 9220+ so his heart is having to do the compensation for his prostatic blood flow to the brain. 3. Patient has EKG changes which are are fairly subtle in nature but are small 1/[address] elevations. For coronary artery re-disease is a chronic problem and we expect him to have his cardiac catheter done on Tuesday tomorrow. Benign prostatic hypertrophy does chronic problem for which he is on Flomax now. 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 We should note we finally reviewed the 2-D echocardiogram and it did note there is mild aortic valve stenosis present we do not plan to do any medication changes however we do plan to transfer this patient to the floor as he has been stable and probably ought to be transferred to a surgical floor bed prior to his cardiac catheterization scheduled for tomorrow Assessment 01/17/2017 assessment: 1. Coronary vessel disease 2. Chronic lightheadedness 3 hyperlipidemia, chronic 4. Benign prostatic hypertrophy, chronic 5. Partial nephrectomy with benign tumor excised years ago current plan is for us to transfer Mr. Cedeno over to [facility] were Dr. Kip KIM has accepted him as a patient. The current plan is for a multiple vessel coronary artery bypass graft to be done. Patient is stable and the transfer should take place physically within the next 1-2 hours. Plan/Intensity of Service Assessment: Lightheadedness, left arm weakness or pain; subtle EKG changes plan: Patient will wait to Dr. Dr. Gamboa when he comes in this afternoon and then decide whether he wants to go ahead and go home or have his stay converted to an inpatient admission. Either way he plans to either have Dr. Flynn do the cardiac catheter here on Tuesday or perhaps he'll wait and have his old doctor, Dr. Bernal, do a cardiac catheter as he has done once or twice in the past with this patient. Will monitor on cardiac telemetry and well obtain serial troponins to rule out acute ischemia. Obtain orthostatic vital signs twice a day to monitor for orthostatic hypotension given position changes and dizziness. Will also obtain a fasting lipid panel Will continue with aspirin 324 milligrams daily Once cleared by cardiology he may have cardiac diet SCD to bilateral lower ext for DVT prophylaxis Will discuss further orders and plan of care with Dr Dean Code Status Full Code Hospital Course Summary Disclaimer The hospital course summary below is not to be considered part of the above Progress Note. Hospital Course Summary Admit patient as observation to the ICU under the care of Dr. Dean for dizziness, rule out PR Consultation placed to Dr. Flynn for further cardiac evaluation and treatment. Based on neurologist recommendations will obtain MRI of the brain without contrast, CT of the head and neck. Will monitor on cardiac telemetry and well obtain serial troponins to rule out acute ischemia. Obtain orthostatic vital signs twice a day to monitor for orthostatic hypotension given position changes and dizziness. Will also obtain a fasting lipid panel Will continue with aspirin 324 milligrams daily Once cleared by cardiology he may have cardiac diet SCD to bilateral lower ext for DVT prophylaxis Will discuss further orders and plan of care with YUSUF Hernandez DO Jan 17, 2017 12:25
[2017-01-17] MEDS ORDERED: HEPARIN 20,000 units/D5W 500ml 500 ML IV SCH (12:45)
--- NOTE | 2017-01-17 12:49 | PNPDOC ---
Subjective Date DATE: 01/15/17 TIME: 1999 denies cp arm pain or weakness. no dizziness . anxious about making decisions regarding his cardiac cath. he is thinking about going home. Objective Vital Signs Vital signs Vital Signs 01/17/17 01/17/17 01/17/17 01/17/17 04:00 05:02 07:41 07:41 Temp 98.1 97.7 Pulse 74 74 77 88 Resp 20 18 12 B/P 106/70 109/65 109/65 99/58 95/50 Pulse Ox 94 93 O2 Delivery Room Air Room Air 01/17/17 01/17/17 01/17/17 01/17/17 07:43 11:00 11:09 11:15 Temp 97.6 Pulse 77 71 71 67 Resp 12 18 18 15 B/P 154/85 112/75 Pulse Ox 93 95 O2 Delivery Room Air Room Air 01/17/17 01/17/17 01/17/17 01/17/17 11:30 11:45 12:00 12:15 Pulse 64 67 80 76 Resp 15 19 20 20 B/P 125/80 132/88 116/85 139/86 Pulse Ox 94 92 93 95 O2 Delivery Room Air Room Air Room Air Room Air 01/17/17 12:31 Pulse 82 Resp 16 B/P 138/77 Pulse Ox 92 O2 Delivery Room Air Telemetry Rhythm: Sinus Rhythm Height (Feet): 5 Height (Inches): 9.00 Weight (Kilograms): 74.500 General Alert, Orientated x 3, Cooperative (anxious), No Acute Distress Eyes (Brief) EOMI, PERRL, NOT FOUND: trauma ENMT (Brief) mucosa moist Neck (Brief) NOT FOUND: JVD Respiratory (Brief) clear all briseno, equal bilaterally Cardiovascular (Brief) murmur (2/6 BRAYDEN), regular rate, regular rhythm Capillary Refill: <2 sec Abdomen (Brief) BS normo active x4, soft, NOT FOUND: distended, tender (Brief) NOT FOUND: deformity Extremities (Brief) Extremity : Extremity Finding: NOT FOUND: clubbing, cyanosis, edema Musculoskeletal (Brief) NOT FOUND: deformity Integumentary (Brief) pink, warm Neurologic (Brief) FOUND: cranial 2-12 intact, motor, sensory, NOT FOUND: facial droop, ptosis Psychiatric (Brief) alert, attentive (anxious), normal affect, oriented Assessment & Plan Plan/Intensity of Service unstable angina cad dw pt and reccomended him to stay in house for heart cath tuesday am. pt had a lot of questions and all were properly answerwed including his concerns. also dw Dr Dean. pt agrees to stay. he looks stable for transfer to floor tele bed. same meds. BEATRIZ ARNOLD MD Jan 17, 2017 12:47
--- NOTE | 2017-01-17 12:50 | PNPDOC ---
Subjective Date DATE: 01/15/17 TIME: 1999 late entry. Objective Vital Signs Vital signs Vital Signs 01/17/17 01/17/17 01/17/17 01/17/17 04:00 05:02 07:41 07:41 Temp 98.1 97.7 Pulse 74 74 77 88 Resp 20 18 12 B/P 106/70 109/65 109/65 99/58 95/50 Pulse Ox 94 93 O2 Delivery Room Air Room Air 01/17/17 01/17/17 01/17/17 01/17/17 07:43 11:00 11:09 11:15 Temp 97.6 Pulse 77 71 71 67 Resp 12 18 18 15 B/P 154/85 112/75 Pulse Ox 93 95 O2 Delivery Room Air Room Air 01/17/17 01/17/17 01/17/17 01/17/17 11:30 11:45 12:00 12:15 Pulse 64 67 80 76 Resp 15 19 20 20 B/P 125/80 132/88 116/85 139/86 Pulse Ox 94 92 93 95 O2 Delivery Room Air Room Air Room Air Room Air 01/17/17 12:31 Pulse 82 Resp 16 B/P 138/77 Pulse Ox 92 O2 Delivery Room Air Telemetry Rhythm: Sinus Rhythm Height (Feet): 5 Height (Inches): 9.00 Weight (Kilograms): 74.500 Cardiovascular (Brief) murmur (2/6 BRAYDEN), regular rate, regular rhythm Capillary Refill: <2 sec Assessment & Plan Plan/Intensity of Service unstable angina cad dw pt and reccomended him to stay in house for heart cath tuesday. pt had a lot of questions and all were properly answerwed including his concerns. also dw Dr Dean. pt agrees to stay. he looks stable for transfer to floor tele bed. same meds. BEATRIZ ARNOLD MD Jan 17, 2017 12:49
--- NOTE | 2017-01-17 13:59 | NUR ---
CM PLAN IS TO TRANSFER TO [facility]. DR. TRELL CAVANAUGH WILL BE THE ACCEPTING DOCTOR. CALLED BED PLACEMENT AT [facility] [employer], SPOKE WITH GILA ([phone], OPT 3). FAXED THE DEMOGRAPHICS. SHE SAID DR. CAVANAUGH WILL ACCEPT THE PT, AND HE WANTS THE PT TO GO TO THE UNIT CT ICU, BUT THAT UNIT IS FULL. ARRANGED FOR HER TO CALL THE HOSPITAL AND ASK FOR THE SURGICAL UNIT WHEN A BED IS AVAILABLE. SHE SAID SHE PLANS ON HAVING A BED AVAILABLE SOMETIME TODAY.
--- NOTE | 2017-01-17 14:40 | NUR ---
TR BAND AFTER ALL AIR REMOVED AND NO S/S OF BLEEDING NOTED, THIS RN REMOVED TR BAND FROM PT'S RIGHT WRIST AND APPLIED A GAUZE/TEGADERM DRESSING. PT TOLERATED WELL. PT DENIED PAIN. SPLINT REMAINS IN PLACE TO RIGHT WRIST TO REMIND PT OF ACTIVITY RESTRICTIONS WITH RIGHT UPPER EXTREMITY. PT VERBALIZED UNDERSTANDING OF THESE RESTRICTIONS. WILL CONTINUE TO MONITOR CLOSELY.
--- NOTE | 2017-01-17 15:32 | NUR ---
CM SPOKE WITH PT AND , RE: ANTICIPATED PLAN TO TRANSFER TO [facility]. THEY BOTH SAID THEY ARE AWARE AND AGREEABLE TO THIS. THIS WORKER UPDATED THEM THAT THE PLAN IS TO TRANSFER WHEN A BED IS AVAILABLE. THEY HAD NO QUESTIONS/NEEDS FOR THIS WORKER. PROVIDED CONTACT INFO IN CASE QUESTIONS ARISE. Addendum: 01/17/17 at 1533 by NILSON ROBLEDO Amended: Links added.
--- NOTE | 2017-01-17 17:55 | NUR ---
TRANSFER/DC PT TRANSFERRED AT THIS TIME TO [facility] VIA EMS. PT'S PRESENT UPON TRANSFER. VITAL SIGNS STABLE ON ROOM AIR. HEPARIN DRIP CONTINUES IN LEFT ANTECUBITAL 20G IV. PERSONAL BELONGINGS AND HOME MEDICATIOSN SENT WITH PT. DC INSTRUCTIONS PRINTED AND SENT WITH PT. PT VERBALIZED UNDERSTANDING OF THESE INSTRUCTIONS AND HAD NO FURTHER QUESTIONS. SPLINT TO RIGHT WRIST REMAINS ON. NO S/S OF BLEEDING NOTED TO RIGHT RADIAL ACCESS SITE. DRESSING C/D/I. PT DENIES PAIN. PT ALERT AND ORIENTED. REPORT PREVIOUSLY CALLED TO GINA DOWNING, ACCEPTING RN IN THE CTICU UNIT AT [facility].
[2017-01-18 03:15] LABS: LDL CHOLESTEROL,CALCULATED 73.6 (66-159); RISK FACTOR 3.9 RATIO (0-5.0); VLDL CHOLESTEROL 17.4 MG/DL (0-28)
--- NOTE | 2017-01-21 17:21 | CVPROF ---
DATE OF SERVICE 01/17/2017 PROCEDURE PERFORMED Transradial heart catheterization. INDICATIONS Unstable angina, with a transient subtle ST elevation in lateral leads. Patient has coronary artery disease with remote intervention x2. DESCRIPTION OF PROCEDURE Patient understood the indications, alternatives, risks, and benefits of the heart catheterization. He agreed to proceed. He was brought to the cardiac cath laboratory. He received IV sedation of Versed and fentanyl. Please refer to nursing notes. I went ahead and injected lidocaine 1% in the right radial artery without difficulty using modified Seldinger percutaneous technique. A table micropuncture wire would not advance so an arteriogram through a dilator was performed. That showed a curvature. We were able to gently advance the dilator over a wire to provide support of the artery. We did use a glidewire. I then proceeded with the heart catheterization in the usual fashion. Using [place] catheter. The procedure was well tolerated. There was no immediate complications. TR band was deployed for hemostasis. For amount of contrast used, fluoroscopy time, exact catheters used, and detailed hemodynamic data, please refer to printout sheet. FINDINGS HEMODYNAMICS LVEDP was normal. There was no subvalvular or transvalvular pressure gradient present. CORONARY ANGIOGRAM Left main coronary artery is large and open. LAD is a large vessel. It does have a stent in the mid segment with in-stent restenosis up to 90%. There is another lesion at the junction of the mid and distal LAD. It is moderate at about 50%. The left circumflex artery is a large codominant vessel. It gives origin up to a first obtuse marginal branch that has a subtotal ostial occlusion of about 98%, which appears hazy. Left circumflex artery itself exhibits a proximal 50% to 60% stenosis. The circumflex artery also supplies second OM branch, PL branch, and LPDA. The left circumflex artery also exhibits a distal stenosis in the AV groove severe at about 70% to 80% leading to a PL branch. RCA is of relatively small caliber seen on semi-selective images. It appears to provide a tiny RPDA that travels toward the inferior wall that is ostial stenosis in the ostium as well as the proximal RCA about 60% to 70%. LV GRAM Using a pigtail catheter, it did not show any transvalvular pressure gradient. Normal LV systolic function. Ejection fraction of 70%. IMPRESSION 1. Severe three-vessel disease as described above with 90% mid LAD, 98% diagonal branch, 98% ostial obtuse marginal branch (culprit lesion), and 60% to 70% stenoses in the tiny probably codominant RCA. 2. Very large left circumflex artery. 3. Normal LV systolic function. DISCUSSION AND PLAN Transfer to [facility]. Dr. Kip Kennedy accepted the patient for CABG. Patient is currently stable free from angina. He has been on dual-antiplatelet therapy. GAIL
== END 2017-01-17 17:55 | disposition short-term general hospital (02) | DRG 287 ==
LOC: ED 08:33 → EDHOLD 10:38 → CCU 12:10 → SRG 01-16 14:10 → OBSVTOIN 01-16 15:19
PROC: 4A023N7 Measurement of Cardiac Sampling and Pressure, Left Heart, Percutaneous Approach (ICD-10-PCS; principal; 2017-01-17)
PROC: B2111ZZ Fluoroscopy of Multiple Coronary Arteries using Low Osmolar Contrast (ICD-10-PCS; 2017-01-17)
PROC: B2151ZZ Fluoroscopy of Left Heart using Low Osmolar Contrast (ICD-10-PCS; 2017-01-17)
DX: I25.110 Atherosclerotic heart disease of native coronary artery with unstable angina pectoris (principal); E78.5 Hyperlipidemia, unspecified; N40.0 Benign prostatic hyperplasia without lower urinary tract symptoms; I10 Essential (primary) hypertension; R51 Headache; Z95.5 Presence of coronary angioplasty implant and graft; Z79.899 Other long term (current) drug therapy; Z79.82 Long term (current) use of aspirin
CPT/HCPCS: 36415; 80048; 80053; 80061; 81003; 82948; 84484; 85025; 85610; 85730; 93005; 93306; 93458; 96372; 99218